=== PATIENT | female | born 1955 | race Caucasian/White ===

== ENCOUNTER 2021-09-19 22:02 | Emergency (ER) | payer OTHER ==
--- OUTSIDE RECORDS SUMMARY | 2021-09-19 22:06 | XMS REPORT | Continuity of Care Document ---
:1955 Author Organization [facility] t Address [address] [place] [address] Care Team Providers Name Role Phone MAKHOUL Attending Clinician Unavailable COLMENTER Attending Clinician Unavailable SARI Attending Clinician Unavailable CHICO JOYCE Attending Clinician Unavailable WILLIAN Attending Clinician Unavailable ISIAH Attending Clinician Unavailable MD CHICO JOYCE Attending Clinician Unavailable EDWIN Attending Clinician Unavailable CHIARAIMSAULO Attending Clinician Unavailable CAREN Attending Clinician Unavailable Hanna Attending Clinician Unavailable VASCULAR Attending Clinician Unavailable ALY Attending Clinician Unavailable COLMENTER Admitting Clinician Unavailable ISIAH Admitting Clinician Unavailable MD CHICO JOYCE Admitting Clinician Unavailable SAGRARIO Admitting Clinician Unavailable Physician, Primary or Family Admitting Clinician Unavailabl e Payers Payer Name Policy Type Policy Number Effective Date Expiration Date S ource Problems Condition Condition Condition Status Onset Resolution Last Treating Co mments Source Name Details Category Date Date Treatment Clinician Date ABDOMINAL Condition Active 2014-01-11 Memoria PAIN, LEFT 11-02 13:35:56 l LOWER 00:00: [place] QUADRANT ABDOMINAL 00 PAIN, LEFT LOWER QUADRANT Active 11/02/2013 Condition 01/11/ 4 [facility] BLEEDING, Condition Active 2014-01-11 Memoria RECTAL/JORGE 11-02 13:35:56 l L 00:00: [place] BLEEDING, 00 RECTAL/JENAE Active 11/02/2013 Condition 4 [facility] CONSTIPATI Condition Active 2014-01-11 Memoria ON, OTHER 11-02 13:35:56 l 00:00: [place] CONSTIPATI 00 ON, OTHER Active 11/02/2013 Condition 4 [facility] COLOVAGINA Condition Active 2014-01-11 Memoria L/RECTOVAG 11-02 13:35:56 l INAL 00:00: [place] FISTULA COLOVAGINA 00 L/RECTOVAG INAL FISTULA Active 11/02/2013 Condition 4 [facility] DIVERTICUL Condition Active 2014-01-11 Memoria ITIS 11-02 13:35:56 l 00:00: [place] DIVERTICUL 00 ITIS Active 11/02/2013 Condition 4 [facility] Group ATHEROSCLE Condition Active 2014-01-11 Memoria ROSIS OF 10-31 13:35:56 l OTHER 00:00: [place] SPECIFIED ATHEROSCLE 00 ARTERIES ROSIS OF OTHER SPECIFIED ARTERIES Active 10/31/2013 Condition 4 [facility] DIABETES Condition Active 2014-01-11 M emoria MELLITUS 10-31 13:35:56 l WITH DIABETES 00:00: Shmuel melgoza UNSPECIFIE MELLITUS 00 D WITH COMPLICATI UNSPECIFIE ON, TYPE D II OR COMPLICATI UNSPECIFIE ON, TYPE D TYPE, II OR NOT STATED UNSPECIFIE D TYPE, UNCONTROLL NOT STATED ED UNCONTROLL ED Active 4 Condition 01/11/2014 [facility] Group History of History of Problem Resolve NPI:152 arthritis arthritis d 8509 205 History of History of Problem Resolve NPI:152 Arthritis Arthritis d 8509 205 History of History of Problem Resolve NPI:152 hypertensi hypertensi d 85 02497 on on History of History of Problem Resolve NPI:152 Postoperat Postoperat d 85 79739 gurpreet gurpreet examinatio examinatio n n History of History of Problem Resolve NPI:152 stroke stroke d [id number] History of History of Problem Resolve NPI:152 transient transient d 8509 205 cerebral cerebral ischemia ischemia Amaurosis Amaurosis Problem Active NPI :152 fugax fugax [id number] Hyperchole Hyperchole Problem Active N PI:152 sterolemia sterolemia 85 00466 Left Left Problem Active NPI:152 shoulder shoulder 118079 5 pain pain Chronic Chronic Problem Active NPI:152 neck pain neck pain 8509 205 Arthrosis Arthrosis Problem Active NPI :152 of left of left 9943876 shoulder shoulder Degenerati Degenerati Problem Active N PI:152 ve ve 2879380 cervical cervical spinal spinal stenosis stenosis Carotid Carotid Problem Active NPI:152 artery artery 5113022 stenosis stenosis Diabetes Diabetes Problem Active NPI:1 52 mellitus mellitus 215000 5 Essential Essential Problem Active NPI :152 (primary) (primary) 8509 205 hypertensi hypertensi on on Essential Essential Problem Active NPI :152 hypertrigl hypertrigl 85 78606 yceridemia yceridemia Peripheral Peripheral Problem Active N PI:152 vascular vascular 544482 5 disease disease Tendinosis Tendinosis Problem Active N PI:907 6707223 Major Problem Active 2020-11-14 Memor ia depressive 02:46:10 l disorder, Major Shmuel n Recurrent depressive episode, disorder, Moderate Recurrent episode, Moderate Active Problem 11/14/2020 [facility] Unspecifie Problem Active 2021-02-04 M emoria d anxiety 02:46:17 l disorder [place] Unspecifie d anxiety disorder Active Problem 02/04/2021 [facility] Insomnia Problem Active 2021-02-04 Mem oria due to 02:46:17 l other Insomnia Shmuel n mental due to disorder other mental disorder Active Problem 02/04/2021 [facility] Major Problem Active 2021-02-04 Memor ia depressive 02:46:17 l disorder, Major Shmuel n Recurrent depressive episode, disorder, Mild Recurrent episode, Mild Active Problem 02/04/2021 [facility] Allergies, Adverse Reactions, Alerts Allergy Allergy Status Severity Reaction(s) Onset Inactive Treating Comm ents Source Name Type Date Date Clinician Sectral Sectral Active Info Not Memori a Available 9-20 l 00:00: Sectral Sectral Active Info Not Memori a Available 8-23 l 00:00: simvasta DA Active U 2018-0 [facility] tin 6-27 [place] 00:00: e 00 [facility] simvasta DA Active U UKNO 2018-0 [facility] tin 6[facility] [place] [facility] IODINE IODINE Active Memoria 6-17 l 00:00: [place] 00 Beta-Blo DA Active SV 2009-05 [facility] ckers 2- [facility] (Beta-Ad 00:00: e renergic 00 [facility] Bl[facility] Beta-Blo DA Active SV DEPRESSION 2009-05 [facility] ckers 2- [facility] (Beta-Ad 00:00: e renergic 00 Medical [facility] simvasta DA Active U 2009-05 [facility] tin 2 Clear 00:00: [place] [facility] Iodinate DA Active SV 2009-05 [facility] d 06-17 [facility] Contrast 00:00: e - Oral 00 [facility] Dye Iodinate DA Active SV HIVES 2009-05 [facility] d 06-17 [facility] Contrast 00:00: e - Oral 00 [facility] Dye Iodinate drug Active NPI:152 d allergy [id number] Contrast Media Family History Family Member Diagnosis Comments Start Date Stop Date Source Unknown Family history of Heart Family History NPI:[id number] Family Member Disease 205 Unknown FHx: diabetes mellitus Family History NPI:[id number] Family Member 205 Father Family history of asthma NPI:[id number] 205 Father Family history of NPI:152 8509 essential hypertension 20 5 Father Family history of NPI:152 8509 hypercholesterolemia 205 Social History Smoking Status Start Date Stop Date Source Current every day smoker NPI:289 [id number] Medications Ordered Filled Start Stop Current Ordering Indication Dosage Frequency Signature Comments Components Source Medication Medication Date Date Medication? Clinician (SIG) Name Name Hydrochloro Yes RICARDO 2 tablet M emoria thiazide 02-04 KEYES l 02:46: [place] 17 Fenofibrate Yes RICARDO 1 tablet M emoria 02-04 KEYES l 02:46: [place] 17 Omeprazole Yes RICARDO 1 capsule M emoria - KEYES l 02:46: [place] 17 Januvia Yes RICARDO TAKE 1 Memoria - KEYES TABLET BY l 02:46: MOUTH [place] 17 EVERY DAY. STOP METFORMIN Ondansetron Yes RICARDO 1 tab Ovidio ayala 02-04 KEYES l 02:46: [place] 17 Metformin Yes RICARDO 1 tablet Mem oria HCl 9-21 KEYES l 02:46: [place] Benavides Prozac Yes RICARDO 2 capsules Ovidio ayala 9-21 KEYES l 02:46: [place] Aspirin 0 Yes RICARDO 1 tablet Memor ia 9-21 KEYES l 02:46: [place] Melatonin 0 Yes RICARDO 2 tablets Me moria 9-21 KEYES at bedtime l 02:46: as needed [place] Fluoxetine Yes RICARDO 1 capsule M emoria HCl 9-21 KEYES l 02:46: [place] Fluoxetine 0 Yes RICARDO 1 capsule M emoria HCl 9-21 KEYES l 02:46: [place] Rosuvastati Yes RICARDO 1 tablet M emoria n Calcium 9-21 KEYES l 02:46: [place] Fenofibrate Yes RICARDO 1 tablet M emoria 9-21 KEYES l 02:46: [place] Benavides Celecoxib Yes RICARDO 1 capsule Me moria 9-21 KEYES l 02:46: [place] Hydrochloro 0 Yes RICARDO 2 tablet M emoria thiazide 9-21 KEYES l 02:46: [place] Metformin Yes RICARDO 1 tablet Mem oria HCl 9-21 KEYES l 02:46: [place] Omeprazole 0 Yes RICARDO 1 capsule M emoria 9-21 KEYES l 02:46: [place] Aspirin 0 Yes RICARDO 1 tablet Memor ia 9-21 KEYES l 02:46: [place] Benavides Januvia 0 Yes RICARDO TAKE 1 Memoria 9-21 KEYES TABLET BY l 02:46: MOUTH [place] Benavides EVERY DAY. STOP METFORMIN Ondansetron 0 Yes RICARDO 1 tab Ovidio ayala 9-21 KEYES l 02:46: [place] Benavides Prozac Yes RICARDO 2 capsules Ovidio ayala 9-21 KEYES l 02:46: [place] Benavides BuSpar 0 Yes RICARDO 1 tablet Memori a 9-21 KEYES l 02:46: [place] Benavides Melatonin 0 Yes RICARDO 2 tablets Me moria 9-21 KEYES at bedtime l 02:46: as needed [place] Fluoxetine Yes RICARDO 1 capsule M emoria HCl 9-21 KEYES l 02:46: [place] Fluoxetine 0 Yes RICARDO 1 capsule M emoria HCl 9-21 KEYES l 02:46: [place] BuSpar Yes RICARDO 1 tablet Memori a 9-21 KEYES l 02:46: [place] Rosuvastati Yes RICARDO 1 tablet M emoria n Calcium 9-21 KEYES l 02:46: [place] Celecoxib 0 Yes RICARDO 1 capsule Me moria 9-21 KEYES l 02:46: [place] Celecoxib Yes RICARDO 1 capsule Me moria 8-24 KEYES l 02:46: [place] Omeprazole Yes RICARDO 1 capsule M emoria 8-24 KEYES l 02:46: [place] Rosuvastati Yes RICARDO 1 tablet M emoria n Calcium 8-24 KEYES l 02:46: [place] Fenofibrate Yes RICARDO 1 tablet M emoria 8-24 KEYES l 02:46: [place] Hydrochloro 0 Yes RICARDO 2 tablet M emoria thiazide 8-24 KEYES l 02:46: [place] Metformin Yes RICARDO 1 tablet Mem oria HCl 8-24 KEYES l 02:46: [place] Aspirin 0 Yes RICARDO 1 tablet Memor ia 8-24 KEYES l 02:46: [place] Ondansetron 0 Yes RICARDO 1 tab Ovidio ayala 8-24 KEYES l 02:46: [place] BuSpar Yes RICARDO 1 tablet Memori a 8-24 KEYES l 02:46: [place] Januvia 0 Yes RICARDO TAKE 1 Memoria 8-24 KEYES TABLET BY l 02:46: MOUTH [place] EVERY DAY. STOP METFORMIN Prozac 0 Yes RICARDO 2 capsules Ovidio ayala 8-24 KEYES l 02:46: [place] Melatonin 0 Yes RICARDO 2 tablets Me moria 8-24 KEYES at bedtime l 02:46: as needed [place] Fluoxetine Yes RICARDO 1 capsule M emoria HCl 8-24 KEYES l 02:46: [place] Fluoxetine 0 Yes RICRADO 1 capsule M emoria HCl 8-24 KEYES l 02:46: [place] Celecoxib 0 Yes RICARDO 1 capsule Me moria 8-24 KEYES l 02:46: [place] Omeprazole 0 Yes RICARDO 1 capsule M emoria 8-24 KEYES l 02:46: [place] Rosuvastati 0 Yes RICARDO 1 tablet M emoria n Calcium 8-24 KEYES l 02:46: [place] Fenofibrate Yes RICARDO 1 tablet M emoria 8-24 KEYES l 02:46: [place] Hydrochloro 0 Yes RICARDO 2 tablet M emoria thiazide 8-24 KEYES l 02:46: [place] Metformin 0 Yes RICARDO 1 tablet Mem oria HCl 8-24 KEYES l 02:46: [place] Aspirin 0 Yes RICARDO 1 tablet Memor ia 8-24 KEYES l 02:46: [place] Ondansetron 0 Yes RICARDO 1 tab Ovidio ayala 8-24 KEYES l 02:46: [place] BuSpar 0 Yes RICARDO 1 tablet Memori a 8-24 KEYES l 02:46: [place] Januvia 0 Yes RICARDO TAKE 1 Memoria 8-24 KEYES TABLET BY l 02:46: MOUTH [place] EVERY DAY. STOP METFORMIN Prozac 0 Yes RICARDO 2 capsules Ovidio ayala 8-24 KEYES l 02:46: [place] Melatonin 0 Yes RICARDO 2 tablets Me moria 8-24 KEYES at bedtime l 02:46: as needed [place] Fluoxetine 0 Yes RICARDO 1 capsule M emoria HCl 8-24 KEYES l 02:46: [place] Fluoxetine 0 Yes RICARDO 1 capsule M emoria HCl 8-24 KEYES l 02:46: [place] 11 Fluoxetine 2021-0 Yes RICARDO 1 capsule M emoria HCl 7-27 KEYES l 00:00: Fluoxetine 2020-0 Yes RICARDO 1 capsule M emoria HCl 7-27 KEYES l 00:00: Fluoxetine 2020-0 Yes RICARDO 1 capsule M emoria HCl 7-27 KEYES l 00:00: Fluoxetine 0 Yes RICARDO 1 capsule M emoria HCl 7-27 KEYES l 00:00: Fluoxetine 0 Yes RICARDO 1 capsule M emoria HCl 7-27 KEYES l 00:00: Fluoxetine 0 Yes RICARDO 1 capsule M emoria HCl 7-27 KEYES l 00:00: Fluoxetine 0 Yes RICARDO 1 capsule M emoria HCl 7-27 KEYES l 00:00: Fluoxetine 0 Yes RICARDO 1 capsule M emoria HCl 7-27 KEYES l 00:00: Wellbutrin 0 Yes Nilda 1 tablet M emoria SR 4-16 Walker in the l 02:49: morning Wellbutrin 0 Yes Nilda 1 tablet M emoria SR 4-16 Walker in the l 02:49: morning Wellbutrin 0 Yes Nilda 1 tablet M emoria SR 4-16 Walker in the l 02:49: morning Wellbutrin 0 Yes Nilda 1 tablet M emoria SR 4-16 Walker in the l 02:49: morning Prozac 0 Yes Sandoval 4 capsule Memori a 3-26 Lidasan l 02:47: Prozac 0 Yes Sandoval 4 capsule Memori a 3-26 Lidasan l 02:47: Prozac 0 Yes Sandoval 4 capsule Memori a 3-26 Lidasan l 02:47: Prozac 0 Yes Sandoval 4 capsule Memori a 3-26 Lidasan l 02:47: Omeprazole 2019-0 Yes Veronique 1 capsule Memoria 9-07 Giles l 02:45: Remeron 2020-0 Yes Veronique 1 tablet Mem oria 9-07 Giles at bedtime l 02:45: Clopidogrel 2020-0 Yes Veronique 1 tablet Memoria Bisulfate 9-07 Giles l 02:45: Omeprazole 2020-0 Yes Veronique 1 capsule Memoria 9-07 Giles l 02:45: Remeron 2020-0 Yes Veronique 1 tablet Mem oria 9-07 Giles at bedtime l 02:45: Clopidogrel 2020-0 Yes Veronique 1 tablet Memoria Bisulfate 9-07 Giles l 02:45: Omeprazole 2020-0 Yes Veronique 1 capsule Memoria 9-07 Giles l 02:45: Remeron 2020-0 Yes Veronique 1 tablet Mem oria 9-07 Giles at bedtime l 02:45: Clopidogrel 2020-0 Yes Veronique 1 tablet Memoria Bisulfate 9-07 Giles l 02:45: Omeprazole 2020-0 Yes Veronique 1 capsule Memoria 9-07 Giles l 02:45: Remeron 2020-0 Yes Veronique 1 tablet Mem oria 9-07 Giles at bedtime l 02:45: Clopidogrel 2020-0 Yes Veronique 1 tablet Memoria Bisulfate 9-07 Giles l 02:45: traMADol traMADol 2015-05 Yes CHRISTOPHE-JOSH TAKE 1 TO NPI:152 HCl - 50 MG HCl - 50 MG 2-05 YEH D.O. 2 TABLETS [id number] Oral Tablet Oral Tablet 00:00: EVERY 6 00 HOURS NEEDED FOR PAIN. Cyclobenzap Cyclobenzap 2015-05 Yes CHRISTOPHE-JOSH TAKE 1 NPI:152 rine HCl - rine HCl - 2-05 YEH D.O. TABLET 3 [id number] 10 MG Oral 10 MG Oral 00:00: TIMES Tablet Tablet 00 DAILY NEEDED. FLAGYL TAB No 1 tablet Mem oria 500MG 8-08 twice l 00:00: daily X 7 [place] 00 days FLAGYL TAB No 1 tablet Mem oria 500MG 8-08 twice l 00:00: daily X 7 [place] 00 days ASPIRIN EC 2014-0 Yes Memoria LOW DOSE 81 6-17 l MG TBEC 00:00: ESCITALOPRA 2014-0 Yes Memori a M OXALATE 6-17 l 20 MG TABS 00:00: METFORMIN 2014-0 Yes Memoria HCL 500 MG 6-17 l TABS 00:00: FENOFIBRATE 2014-0 Yes Memori a 145 MG TABS 6-17 l 00:00: CELEBREX 2014-0 Yes Memoria 200 MG CAPS 6-17 l 00:00: ESCITALOPRA 2014-0 Yes Memori a M OXALATE 6-17 l 20 MG TABS 00:00: METFORMIN 2014-0 Yes Memoria HCL 500 MG 6-17 l TABS 00:00: FENOFIBRATE 2014-0 Yes Memori a 145 MG TABS 6-17 l 00:00: CELEBREX 2014-0 Yes Memoria 200 MG CAPS 6-17 l 00:00: CELEBREX 2014-0 Yes Memoria 200 MG CAPS 6-17 l 00:00: ASPIRIN EC 2014-0 Yes Memoria LOW DOSE 81 6-17 l MG TBEC 00:00: ESCITALOPRA 2014-0 Yes Memori a M OXALATE 6-17 l 20 MG TABS 00:00: METFORMIN 2014-0 Yes Memoria HCL 500 MG 6-17 l TABS 00:00: FENOFIBRATE 2014-0 Yes Memori a 145 MG TABS 6-17 l 00:00: CELEBREX 2014-0 Yes Memoria 200 MG CAPS 6-17 l 00:00: ESCITALOPRA 2014-0 Yes Memori a M OXALATE 6-17 l 20 MG TABS 00:00: METFORMIN 2014-0 Yes Memoria HCL 500 MG 6-17 l TABS 00:00: FENOFIBRATE 2014-0 Yes Memori a 145 MG TABS 6-17 l 00:00: CELEBREX 2014-0 Yes Memoria 200 MG CAPS 6-17 l 00:00: CELEBREX 2014-0 Yes Memoria 200 MG CAPS 6-17 l 00:00: CeleBREX CeleBREX Yes QD TAKE 1 NPI:1 52 200 MG Oral 200 MG Oral CAPSULE [id number] Capsule Capsule DAILY NEEDED. Lexapro 20 Lexapro 20 Yes 1 QD TAKE 1 N PI:152 MG Oral MG Oral TABLET [id number] Tablet Tablet DAILY. Tricor 145 Tricor 145 Yes 1 QD TAKE 1 N PI:152 MG Oral MG Oral TABLET [id number] Tablet Tablet DAILY. amLODIPine- amLODIPine- Yes QD TAKE 1 NPI:152 Valsartan-H Valsartan-H TABLET [id number] CTZ CTZ DAILY DIRECTED. MG Oral MG Oral Tablet Tablet Potassium Potassium Yes 1 QD TAKE 1 NPI :152 Chloride Chloride TABLET [id number] 05 Barbaar ER 20 Barbara ER 20 DAILY. MEQ Oral MEQ Oral Tablet Tablet Extended Extended Release Release metFORMIN metFORMIN Yes Q0.5D TAKE 1 EDGE STAINER I:152 HCl - 1000 HCl - 1000 TABLET 8 [id number] MG Oral MG Oral TWICE Tablet Tablet DAILY WITH MEALS. Crestor 40 Crestor 40 Yes 1 QD TAKE 1 N PI:152 MG Oral MG Oral TABLET [id number] Tablet Tablet DAILY. Lexapro Lexapro Yes NPI:152 TABS TABS [id number] hydroCHLORO hydroCHLORO Yes N PI:152 thiazide thiazide [id number] TABS TABS CeleBREX CeleBREX Yes NPI:152 CAPS CAPS [id number] Vital Signs Vital Name Observation Time Observation Value Comments Source Weight 2020-07-22 21:45:00 [facility] Weight 2020-06-24 19:30:00 [facility] Weight 2020-05-27 21:45:00 [facility] Weight 2020-04-24 21:45:00 [facility] Weight 2020-03-28 22:15:00 [facility] Weight 2020-02-29 20:15:00 [facility] Weight 2020-02-15 19:30:00 [facility] Weight 2019-05-15 16:15:00 [facility] Height 2019-05-15 16:15:00 [facility] Heart Rate 2019-05-15 16:15:00 [facility] Diastolic (mm Hg) 2019-05-15 16:15:00 [facility] francheskaal [place] Systolic (mm Hg) 2019-05-15 16:15:00 Ovidio rial [place] Weight 2014-01-11 18:35:56 [facility] Temperature Oral (F) 2014-01-11 18:35:56 98.7 F [facility] [place] Heart Rate 2014-01-11 18:35:56 [facility] [place] Systolic (mm Hg) 2014-01-11 18:35:56 Ovidio rial [place] Diastolic (mm Hg) 2014-01-11 18:35:56 Mem orial [place] Weight 2013-12-29 20:27:02 [facility] [place] Temperature Oral (F) 2013-12-29 20:27:02 99.0 F [facility] [place] Heart Rate 2013-12-29 20:27:02 [facility] [place] Systolic (mm Hg) 2013-12-29 20:27:02 Ovidio rial [place] Diastolic (mm Hg) 2013-12-29 20:27:02 Mem orial [place] Weight 2013-12-22 18:42:34 [facility] [place] Temperature Oral (F) 2013-12-22 18:42:34 98.6 F [facility] [place] Heart Rate 2013-12-22 18:42:34 [facility] [place] Systolic (mm Hg) 2013-12-22 18:42:34 Ovidio rial [place] Diastolic (mm Hg) 2013-12-22 18:42:34 Mem orial [place] Weight 2013-12-14 14:20:08 [facility] [place] Temperature Oral (F) 2013-12-14 14:20:08 98.6 F [facility] [place] Heart Rate 2013-12-14 14:20:08 [facility] [place] Systolic (mm Hg) 2013-12-14 14:20:08 Ovidio rial [place] Diastolic (mm Hg) 2013-12-14 14:20:08 Mem orial [place] Weight 2013-11-28 18:19:41 [facility] [place] Temperature Oral (F) 2013-11-28 18:19:41 98.5 F [facility] [place] Heart Rate 2013-11-28 18:19:41 [facility] [place] Systolic (mm Hg) 2013-11-28 18:19:41 Ovidio rial [place] Diastolic (mm Hg) 2013-11-28 18:19:41 Mem orial [place] Height 2013-10-31 19:53:28 [facility] [place] Weight 2013-10-31 19:53:28 [facility] [place] Temperature Oral (F) 2013-10-31 19:53:28 98.7 F [facility] [place] Heart Rate 2013-10-31 19:53:28 [facility] [place] Systolic (mm Hg) 2013-10-31 19:53:28 Ovidio desmond [place] Diastolic (mm Hg) 2013-10-31 19:53:28 [facility] orial [place] Procedures Procedure Date / Time Performing Clinician Source Performed CVRAD - Bilateral Carotid 2019-04-18 00:00:00 EDGE STAINER I:[id number] Duplex - 15282 [facility] - Bilateral Carotid 2018-04-19 00:00:00 EDGE STAINER I:[id number] Duplex - 60316 [facility] - Bilateral Carotid 2017-03-08 00:00:00 EDGE STAINER I:[id number] Duplex - 90378 [facility]RAD - KATH - 15761 2017-03-08 00:00:00 NPI:1528 [id number] History of Back Surgery NPI:1528 [id number] History of Carotid NPI:[id number] 5 Thromboendarterectomy History of Hip Replacement NPI:1 [id number] History of Hysterectomy NPI:1528 [id number] Encounters Start End Encounter Admission Attending Care Care Encounter Source Date/Time Date/Time Type Type Clinicians Facility Department ID 2021-02-10 Outpatient [id number] Memoria 11:35:18 [id number] [place] [id number] 2021-02-07 Outpatient [id number] Memoria 13:24:15 [id number] [place] [id number] 2021-09-18 2021-09-18 Outpatient [facility] [id number] [place] 00:00:00 00:00:00 ALECIA [address] 2021-09-18 2021-09-18 Outpatient [facility] [id number] [place] 00:00:00 00:00:00 ALECIA [address] 2021-09-18 2021-09-18 Outpatient MAKHOUL, [facility] [id number] [place] 00:00:00 00:00:00 ALECIA [address] 2021-08-26 2021-08-26 Outpatient COLMENTER, [facility] [id number] [place] 00:00:00 00:00:00 DIEGO [address] 2021-08-12 2021-08-12 Outpatient ALI, HIBA [facility] [id number] [place] 00:00:00 00:00:[address] 2021-08-12 2021-08-12 Outpatient MAKHOUL, [facility] [id number] [place] 00:00:00 00:00:00 ALECIA [address] 2021-08-11 2021-08-11 Outpatient COLMENTER, [facility] [id number] [place] 00:00:00 00:00:00 DIEGO [address] 2021-08-07 2021-08-07 Outpatient PATRICKL, [facility] [id number] [place] 00:00:00 00:00:00 ALECIA [address] 2021-08-07 2021-08-07 Outpatient CHERELLEHOUL, [facility] [id number] [place] 00:00:00 00:00:00 ALECIA [address] 2021-07-11 2021-07-11 Outpatient COLMENTER, [facility] [id number] [place] 00:00:00 00:00:00 DIEGO [address] 2021-06-30 2021-06-30 Outpatient [facility] [id number] [place] 00:00:00 00:00:[address] 2021-04-29 2021-04-29 Outpatient COLMENTER, [facility] [id number] [place] 00:00:00 00:00:00 DIEGO [address] 2021-04-01 2021-04-01 Outpatient PATRICKL, [facility] [id number] [place] 00:00:00 00:00:00 ALECIA [address] 2021-04-01 2021-04-01 Outpatient PATRICKL, [facility] [id number] [place] 00:00:00 00:00:00 ALECIA [address] 2021-03-26 2021-03-26 Outpatient COLMENTER, [facility] [id number] [place] 00:00:00 00:00:00 DIEGO [address] 2021-02-10 2021-02-10 Outpatient ALI, HIBA [facility] [id number] [place] 00:00:00 00:00:[address] 2021-02-10 2021-02-10 Outpatient ALI, HIBA [facility] [id number] [place] 00:00:00 00:00:[address] 2021-02-07 2021-02-07 Outpatient ALI, HIBA [facility] [id number] [place] 00:00:00 00:00:[address] 2021-01-22 2021-01-22 Outpatient ALI, [facility] [id number] [place] 00:00:00 00:00:[address] 2021-01-14 2021-01-14 Outpatient ALI, HIBA [facility] [id number] [place] 00:00:00 00:00:[address] 2020-12-18 2020-12-18 Outpatient CHERELLEHOUL, [facility] [id number] [place] 00:00:00 00:00:00 ALECIA [address] 2020-08-27 2020-08-27 Outpatient CHERELLEHOUL, [facility] [id number] [place] 00:00:00 00:00:00 ALECIA [address] 2020-08-05 2020-08-05 Outpatient JOYCE, [facility] [id number] 11:41:00 13:29:[address] [facility] 2020-06-17 2020-06-17 Outpatient KRONFOL, [facility] [id number] [place] 00:00:00 00:00:00 ZIAD [address] 2020-06-13 2020-06-13 Outpatient JOYCE, [facility] [id number] [place] 00:00:00 00:00:00 TOBI [address] 2020-06-11 2020-06-11 Outpatient JOYCE, [facility] [id number] [place] 00:00:00 00:00:00 TOBI [address] 2020-05-08 2020-05-08 Outpatient JOYCE, [facility] [id number] [place] 00:00:00 00:00:00 SVETANG [address] 2019-12-12 2019-12-12 Outpatient EDWIN, [facility] [id number] [place] 00:00:00 00:00:00 MADY [address] 2019-11-21 2019-11-21 Outpatient DESIREE, [facility] [id number] [place] 00:00:00 00:00:00 ALECIA 848 [facility] 2019-07-13 2019-07-13 Outpatient EDWIN, [facility] [id number] [place] 00:00:00 00:00:00 MADY [facility] 2019-06-04 2019-06-08 Inpatient TEQWBOAZ, [facility] [id number] [place] 00:00:00 00:00:00 PATRICK [address] [facility] 2019-05-30 2019-05-30 JIMMY [facility] [id number] NPI:152 10:00:00 10:00:00 t; ALLYSON FABIAN, Surgery - [phone] Edison VALADEZ [facility] M.Elen 2019-05-12 2019-05-12 Outpatient DANNI Ferreira, [facility] KYA [id number] [facility] 12:00:00 12:00:00 Dominic [id number] [facility] 2019-04-18 2019-04-18 Franco FLOWERS [facility] Thoracic 5930 1529 NPI:152 10:00:00 10:00:00 t; SE Surgery - [id number] VASCULAR, [facility] 2018-05-03 2018-05-03 JIMMY [facility] 478 61921 NPI:152 10:15:00 10:15:00 t; ALLYSON FABIAN cic and 850 9205 Edison VALADEZ Vascular M.D. Surgery at [facility] 2018-04-19 2018-04-19 JIMMY [facility] 4 [id number] NPI:152 10:30:00 10:30:00 t; cic and [id number] 5 VASCULAR, Vascular SE Surgery at [facility] 2017-03-23 2017-03-23 JIMMY [facility] 350 64084 NPI:152 11:00:00 11:00:00 t; ALLYSON FABIAN cic and 850 9205 Edison VALADEZ Vascular Edison Surgery at [place] 2017-03-08 2017-03-08 Appointmen VASCULAR, UTP UTP 57335 376 NPI:152 10:30:00 10:30:00 t; SE [id number] 5 VASCULAR, SE 2017-03-08 2017-03-08 Appointmen VASCULAR, UTP UTP 74928 344 NPI:152 10:00:00 10:00:00 t; SE [id number] 5 VASCULAR, SE 2017-02-09 2017-02-09 Appointmen CAREN, UTP UTP [id number] 0 NPI:152 09:45:00 09:45:00 t; ALLYSON FABIAN, 850 9205 Edison VALADEZ M.D. 2016-04-20 2016-04-20 Appointmen ALY [facility] UTP [id number] NPI:152 15:00:00 15:00:00 t; SHERIDAN LU, 850 9205 Peyton SWARTZ D.O. 2014-01-11 2014-01-11 [facility] [id number] [facility] 00:00:00 00:00:00 Visit nargis Hull [id number] [facility] Col[facility] 2013-12-29 2013-12-29 [facility] [id number] [facility]oria 00:00:00 00:00:00 Visit nargis Hull 197740 [facility] Col[facility] 2013-12-22 2013-12-22 [facility] [id number] 570 [facility] 00:00:00 00:00:00 Visit nargis Hull 108895 [facility] Colorectal [facility] 2013-12-14 2013-12-14 [facility] [id number] [facility]oria 00:00:00 00:00:00 Visit nargis Hull 311434 [facility] Col[facility] 2013-11-28 2013-11-28 [facility] [id number] 594 [facility] 00:00:00 00:00:00 Visit nargis Hull [id number] [facility] Col[facility] 2013-11-02 2013-11-02 Lab Report [facility] [id number] Memoria 00:00:00 00:00:00 nargis Hull [id number] [facility] [place] 2013-10-31 2013-10-31 [facility] [id number] 025 [facility] 00:00:00 00:00:00 Visit nargis Hull 775275 [facility] Colorectal [facility] Results Test Description Test Time Test Comments Results Result Sourc e Comments SCR MAMM BILATERAL 2021-05-06 BRITTANY CAD DIGITAL 16:03:02 Name: Aretha : 1955 Sex: F - SCR MAMM BILATERAL BRITTANY CAD DIGITALBILATERAL DIGITAL SCREENING MAMMOGRAM 3D/2D WITH CAD: 05/02/2021LINICAL: Asymptomatic. Digital breast tomosynthesis was performed in addition to routine CC and MLO views. Current mammographic images were evaluated by [employer] CAD (computer-aided detection) software. Comparison is made to exam dated 05/12/2019 mammogram - [facility]. The tissue of both breasts is predominantly fatty. No suspicious mass, architectural distortion, malignant type calcification, or lymph node abnormality detected. Breast architecture is stable compared to prior exams.IMPRESSION: NEGATIVEThere is no mammographic evidence of malignancy. Resume annual screening mammography in one year. Hernan Orozco M.D. ss/penrad:05/06/2021 16:03:02 [employer]: Corazon THOMPSON, [facility]-FWletter sent: BIRADS 1-2 Normal Mammogram BI-RADS: 1 Negative SARS-CoV-2 (COVID-19) RNA [Presence] in Respiratory sp ecimen by 2020-06-12 02:03:28 HARVINDER with probe detection Test Item Value Reference Range Interpretation Comme nts SARS-CoV-2 (COVID-19) RNA [Presence] in Respiratory Not detected No t-Detected specimen by HARVINDER with probe detection (test code = 58961-8) SURGICAL [id number] 07:38:00 RUN DATE: 11/25/18 [facility] *LIVE* PAGE 1 RUN TIME: 737 Specimen Inquiry RUN USER: INTERFACE PATIENT: ARETHA MIRAMONTES [facility] U #: [id number] AGE/SX: 63/F ROOM: [facility] RE11/11/18REG DR: Criss Spring MD : 51 BED: 1 DIS: 11/15/18 STATUS: DIS IN TLOC: SPEC #: [id number] RECD: 11/11/18 STATUS: SUKHDEEP RIVERA #: [id number] PATRICIA: 11/11/[address]: Criss Spring MD ENTERED: 11/24/18 SP TYPE: SURG SPEC OTHR DR: Self Referred Tobi Joyce MD, Altaf MD Makhoul, Claudia MD Voloyiannis,Theodoros MDORDERED: GM LEVEL 4 CODES: [id number] - STOMACH, NOS COPIES TO: Self Referred Tobi Joyce MD [address] [place] [address] [place] [address] [place] [address] [email or web address] [address] [place] [id number] Criss Spring MD [address] [place] [address] Le Kramer MD [address] [place], [place] [id number] [email or web address] PROCEDURES: GM LEVEL 4 (Incomplete) TISSUES: 1. STOMACH, NOS - Stomach, bx. CONTINUED ON NEXT PAGE RUNDATE: 11/25/18 [facility] *LIVE* PAGE 2 RUN TIME: 737 Specimen Inquiry RUN USER: INTERFACE SPEC #: [id number] PATIENT: FEARETHA SHELTON #[id number] (Continued) FINAL DIAGNOSIS Stomach, antrum, biopsy: Mild chronic gastritis, nonactive; no Helicobacter pylori organisms identified. GROSS AND MICROSCOPIC GROSS EXAMINATION: Received is/are the specimen/s designated with the appropriate dimensions and block designation: 1. Stomach, bx.: 2 segments of pink-jacobs tissue, measuring up to 0.5 cm. in greatest dimension each. MICROSCOPIC EXAMINATION: The gastric mucosa reveals mild foveolar hyperplasia with increased fibrosis and chronic inflammation in the lamina propria. No significant acute inflammation is identified. No Helicobacter pylori organisms are identified with the immunostain, and no intestinal metaplasia is identified with the alcian blue/PAS stain. (When special stains have been reviewed, the appropriate positive/negative controls have been reviewed and are appropriately positive/negative). POST-OP DIAGNOSIS Gastritis, hiatal hernia PRE-OP DIAGNOSIS Intractable vomiting Signed SIGNATURE ON FILE Sandra Kruger MD 11/25/18 0738 END OF REPORT - HEPA IMAG INCL GB W [id number] 10:20:00 FAX: Michel Barrios [phone] [place]: St: FAX: Amada Cordova [phone] FAX: Criss Spring MD [phone] Name: ARETHA MIRAMONTES [facility] Geni : 1955 Age/S: 63/F [address] [place] [address] Unit #: [id number] Loc: G.C144 [place] [address] Phys: Michel Barrios Acct: [id number] Dis Date: Status: ADM IN PHONE #: [phone] Exam Date: 11/14/2018 1002 FAX #: [phone] Reason: abd pain and N/V EXAMS: CPT CODE: [id number] HEPA IMAG INCL GB W PHA 82671 Nuclear medicine hepatobiliary scan HISTORY: Nausea and vomiting after eating. PROCEDURE: After the intravenous injection of 5 mCi of technetium 99m Choletec, anterior projection imaging was performed for 100 minutes. Then, 8 ounces of Ensure was ingested orally and additional imaging of the abdomen was performed for 30 minutes. FINDINGS: There is normal hepatic uptake of the radiotracer and exc retion into the biliary system. The gallbladder is visualized at 45 minutes. The small bowelis visualized at 100 minutes. After the ingestion of a fatty meal, the maximum gallbladder ejection fraction measures 58% at 30 minutes which is normal. IMPRESSION:1. Patent cystic duct and common duct. No evidence for acute cholecystitis. 2. Normal gallbladder ejection fraction. SL: [id number] at 1020 Reported and signed by: Orlando Lorenzo M.D. CC: Michel Barrios; Alecia Cordova MD; Criss Spring MD Technologist: Alis Rivera, RT(N) ELECTRIC BATH ATTENDANT; ... Trnscrd Date/Time/By: 11/14/2018 (1020) : By: [email or web address] Orig Print D/T: S: 11/14/2018 (1180) PAGE 1 Signed Report- XR CHEST 2 [id number] 10:11:00 FAX: Michel Barrios [phone] [place]: St: ADM FAX: Amada Cordova [phone] FAX: Criss Spring MD [phone] Name: ARETHA MIRAMONTES [facility] : 1955 Age/S: 63/F [address] [place] [address] Unit #: [id number] Loc: G.[address] [address] Phys: Michel Barrios Acct: [id number] Dis Date: Status: ADM IN PHONE #: [phone] Exam Date: 11/11/2018 0743 FAX #: [phone] Reason: PRE OP PROTOCOL EXAMS: CPT CODE: [id number] XR CHEST 2 V 01515 2 view chest x-ray performed November 11, 2018 0732 hours. COMPARISON: August 04, 2012. CLINICAL HISTORY: PRE OP PROTOCOL. Intractable vomiting DISCUSSION: 2 views/ films of the chest are submitted. Lungs are clear bilaterally. Surgical clips are seen in the left lower neck region. Cardiomediastinal silhouette isnormal. Osseous structures are within normal limits. IMPRESSION: Normal Chest X-ray. at 1011 Reported and signed by: Clara Cedeño M.D. CC: Michel Barrios; Alecia Cordova MD; Criss Spring MD Technologist: RT Cristopher(Nargis) Trnscrd Date/Time/By: 11/11/2018 (1011) : By: YoNMG Orig Print D/T: S: 11/11/2018 (2516) PAGE 1 Signed Report- US ABDOMEN [id number] 08:33:00 Name: ARETHA MIRAMONTES [facility] : 1955 Age/S: 63 / F [address] [place] [address] Unit #: [id number] Loc: [place] [id number] Phys: York,Michel PANDEY Acct: [id number] Dis Date: Status: ADM IN PHONE #: [phone] Exam Date: 11/11/2018808 FAX #: [phone] Reason: n/v/abdpain EXAMS: CPTCODE: [id number] US ABDOMEN LTD 84714 PROCEDURE: RIGHT UPPER QUADRANT ULTRASOUND INDICATION: Nausea, vomiting, upper abdominal pain COMPARISON: None TECHNIQUE: Sonographic evaluation of the right upper quadrant was performed with supplemental color and pulsed Doppler. FINDINGS: LIVER: There is increased echogenicity throughout the liver. GALLBLADDER: There are no gallstones, sludge, pericholecystic fluid or wall thickening. BILE DUCTS: The common duct measures 3 mm. PANCREAS: The visualized pancreas appears normal. RIGHT KIDNEY: The right kidney measures 10.3 cm in length. There are at least 2 renal cysts, largest measuring 1.0 cm. No hydronephrosis or renal stones are present. Renal cortex has normal echogenicity. Additional comments: None. IMPRESSION: 1. No cholelithiasis, cholecystitis, or ductal dilatation. 2. Fatty infiltration of liver. SL: [id number] at 0833 Reported and signed by: Orlando Lorenzo M.D. CC: Michel Barrios; Alecia Cordova MD; Criss Spring MD Technologist: Claudia lutz RDMS(Isabella)(SANTO) Trnscb Date/Time: 11/11/2018 (832) [email or web address] Orig Print D/T: S: 11/11/2018 (0836) Probe: PAGE 1 Signed ReportPROTHROMBIN [id number] 03:51:00 Test Item Value Reference Range Interpretation Comments PROTHROMBIN TIME 13.5 SECONDS 9.3-12.9 H PATIENT (test code = PTP) INTERNATIONAL NORMAL 1.2 0.8-1.2 N TARGET RATIO (test code = INR BY IN DICATION INR) Indication INR1. Prophyl axis of venous thrombos is 2.0 - 3. 0 (orthopedic autumn mian), Prophylaxis of venous thrombos is (other than hig h-risk surgery), Rajani tment of Deep Vein Thrombosis/Pulm onary Embolism, Preve ntion of systemic emb olism - Tissue heart va lves, Acute Myocardia l Infarction (to prevent systemic embo lism), Valvular heart disease, Atri al Fibrillation, Bileaflet mecha nical valve in aortic position.2. Mec hanical prosthetic valv es (high risk), 2.5 - 3.5 Presence of Lupus Anticoagu lant or Antiphospholi pid Antibodies, Pre vention of systemic e mbolism - Acute Myocard ial Infarction (t o prevent recurre nt infarct). THROMBOPLASTIN TIME [id number] 03:51:00 Test Item Value Reference Range Interpretation Comments THROMBOPLASTIN TIME 32.3 Seconds 25.0-39.5 N Ther apeutic PARTIAL (test code = Range: 50.4 - 88.3 PTT) Seconds Effective 08/30/2018 - NM GASTRIC [id number] 15:11:00 FAX: Alecia Cordova MD [phone] [place]: St: ADM FAX: Criss Spring MD [phone] Name: ARETHA MIRAMONTES [facility] : 1955 Age/S: 63/F [address] [place] [address] Unit #: [id number] Loc: GMargaretC144 [place] [address] Phys: Criss Spring MD Acct: [id number] Dis Date: Status: ADM IN PHONE #: [phone] Exam Date: 11/10/2018 1456 FAX #: [phone] Reason: nausea /vomiting, r/o gastroparesis EXAMS: CPT CODE: [id number] NM GASTRIC EMPTYING 79401 NUCLEAR MEDICINE GASTRIC EMPTYING STUDY. INDICATION: Intractable Nausea vomiting for 9 months. Gastroparesis. COMPARISON: None. TECHNIQUE: Patient was allowed to ingest oatmeal mixed with 1 mCi Tc 99m sulfur colloid. Immediate and serial images of the abdomen in the anterior projection were obtained for calculation of gastric emptying time. FINDINGS: Radiotracer is seen within the area of the stomach on the initial images demonstrating movement into the small bowel loops over serial images. Half gastric emptying time is 32 minutes. IMPRESSION: Normal gastric emptying study. SL: KWADWO at 1511 Reported and signed by: Chacorta Conde M.D. CC: Alecia Cordova MD; Criss Spring MD Technologist: SALVATORE Loyola (N) Trnscrd Date/Time/By: 11/10/2018 (1511) : By: [email or web address] Orig Print D/T: S: 11/10/2018 (1511) PAGE 1 Signed ReportCBC W/AUTO [id number] 09:36:00 Test Item Value Reference Range Interpretation Comments WHITE BLOOD CELL (test code = 5.89 x10 3/uL 4.5-11.0 N WBC) RED BLOOD CELL (test code = 3.63 x10 6/uL 3.54-5.02 N RBC) HEMOGLOBIN (test code = HGB) 11.0 g/dL 11.0-15.0 N HEMATOCRIT (test code = HCT) 34.0 % 33.0-45.0 N MEAN CELL VOLUME (test code = 93.7 fL 81.0-99.0 N MCV) MEAN CELL HGB (test code = MCH) 30.3 pg 27.0-33.0 N MEAN CELL HGB CONCETRATION 32.4 g/dL 33.0-37.0 L (test code = MCHC) RED CELL DISTRIBUTION WIDTH CV 12.3 % 11.5-14.5 N (test code = RDW) RED CELL DISTRIBUTION WIDTH SD 42.5 fL 37.0-54.0 N (test code = RDW-SD) PLATELET COUNT (test code = 350 x10 3/uL 150-400 N PLT) MEAN PLATELET VOLUME (test code 10.1 fL 7.0-9.0 H = MPV) NEUTROPHIL % (test code = NT%) 48.9 % 56.0-77.0 L IMMATURE GRANULOCYTE % (test 0.3 % 0.0-2.0 N code = IG%) LYMPHOCYTE % (test code = LY%) 30.9 % 14.0-32.0 N MONOCYTE % (test code = MO%) 8.5 % 4.8-9.0 N EOSINOPHIL % (test code = EO%) 10.9 % 0.3-3.7 H BASOPHIL % (test code = BA%) 0.5 % 0.0-2.0 N NUCLEATED RBC % (test code = 0.0 % 0-0 N NRBC%) NEUTROPHIL # (test code = NT#) 2.88 x10 3/uL 2.0-7.6 N IMMATURE GRANULOCYTE # (test 0.02 x10 3/uL 0.00-0.03 N code = IG#) LYMPHOCYTE # (test code = LY#) 1.82 x10 3/uL 1.0-3.8 N MONOCYTE # (test code = MO#) 0.50 x10 3/uL 0.1-0.8 N EOSINOPHIL # (test code = EO#) 0.64 x10 3/uL 0.0-0.2 H BASOPHIL # (test code = BA#) 0.03 x10 3/uL 0.0-0.2 N NUCLEATED RBC # (test code = 0.00 x10 3/uL 0.0-0.1 N NRBC#) MANUAL DIFF REQUIRED (test code NO = MDIFF) BASIC METABOLIC [id number] 08:45:00 Test Item Value Reference Range Interpretation Comments SODIUM (test code = NA) 140 mEq/L 134-147 N POTASSIUM (test code = 3.5 mEq/L 3.4-5.0 N K) CHLORIDE (test code = 107 mEq/L 100-108 N CL) CARBON DIOXIDE (test 26 mEq/L 21-33 N code = CO2) ANION GAP (test code = 11 0-20 N GAP) GLUCOSE (test code = 99 mg/dL 70-110 N GLU) BLOOD UREA NITROGEN 13 mg/dL 7-18 N (test code = BUN) GLOMERULAR FILTRATION 62.8 80-90 L Units of measure = RATE (test code = GFR) ml/mi n/1.73 m2 CREATININE (test code = 0.9 mg/dL 0.6-1.3 N CREAT) CALCIUM (test code = 9.2 mg/dL 8.0-10.5 N CA) [id number] 01:14:00 Test Item Value Reference Range Interpretation Comments GLUBED (test code = 143 MG/DL 70-110 H Performe d by certified GLUBED) 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 Hip surgery 4 days ago. COMPARISON EXAM(S): Previous similar studyof December 2014 TECHNIQUE: Axial images were obtained of the abdomen and pelvis from the domes of the diaphragm to the symphysis pubis without contrast material. Coronal and sagittal reconstructions were generated. DOSE: CT imaging performed at this location utilizes radiation dose optimization technique which includes one or more of the followin) Automated exposure control; 2) Adjustment of the mA and/or kV according to patient's size;3) Use of iterative reconstruction techniques. DLP (mGy-cm): 570 FINDINGS: The lung bases and pleural spaces are clear. The stomach is not distended. Oral contrast material reached normal-appearing loops of small bowel. Contrast material reached the ascending colon at the time of imaging. The gallbladder is of normal size. Complexanterior abdominal wall hernia is identified with a wide neck measuring 6.5 cm and hernia sac measuring 13 cm. This contains a segment of the transverse colon. The colon does not appear to be incarcerated or obstructed. No evidence of fluid or edema within the hernia sac. The appendix is well seen and normal. No inflammatory changes identified in either lower quadrant. Inferior pelvis is obscured by the streak artifact from the hip prostheses. The solid organs are not well evaluated without IV contrast. No dominant focal lesions noted in the liver, spleen, pancreas, or adrenal glands. The right kidney is normal without stones or hydronephrosis. The left kidney contains several low-density lesions, and one, subcentimeter high density lesion at the lateral, peripheral cortex. Low-density lesions have either not significantly changed or have density analysis compatible with simple cysts. The high density lesion is compatible with a proteinaceous cyst. No evidence of left nephrolithiasis or hydronephrosis. SKELETAL: Bone windows show no suspicious blastic or lytic lesions. No acute bony abnormalities. PAGE 1 Signed Report (CONTINUED) Name: ARETHA MIRAMONTES [facility] : 1955 Age/S: 63 / F [address] [place], [place] [address] Unit #: [id number] Loc: [place] [address] Phys: Emory Aldana DO Acct: [id number] Dis Date: Status: REG ER PHONE #: [phone] Exam Date: 11/09/2018 1815 FAX #: [phone] Reason: abdominal pain nauesea vomitting EXAMS: CPT CODE: [id number] CT ABD PELVIS W/O CONT 27194 <Continued> IMPRESSION: 1. No acute changes identified. 2. Complex, large, anterior abdominal wall umbilical hernia containing a nonobstructed segment of thetransverse colon. There is no evidence of incarceration or edema within the hernia sac, nor evidence of proximal colonic dilatation. 3. Oral contrast material reached the ascending colon at the time of imaging. No evidence of bowel obstruction. 4. Normal appendix. 5. Simple and proteinaceous left renal cysts. 6. Bilateral femoral prostheses. 7. Otherwise unremarkable noncontrast exam. SL:01 at 1845 Reported and signed by: Bk Navarro M.D. CC: Emory Aldana DO Technologist:Lara Wick, RT(R)(CT) CTDI: DLP: Trnscb Date/Time: 11/09/2018 (1844) Danielle Orig Print D/T: S: 11/09/2018 (1847) PAGE 2 Signed ReportCOMPREHENSIVE METABOLIC [id number] 17:52:00 Test Item Value Reference Range Interpretation Comments SODIUM (test code = NA) 137 mEq/L 134-147 N POTASSIUM (test code = 3.8 mEq/L 3.4-5.0 N K) CHLORIDE (test code = 102 mEq/L 100-108 N CL) CARBON DIOXIDE (test 27 mEq/L 21-33 N code = CO2) ANION GAP (test code = 12 0-20 N GAP) GLUCOSE (test code = 120 mg/dL 70-110 H GLU) BLOOD UREA NITROGEN 13 mg/dL 7-18 N (test code = BUN) GLOMERULAR FILTRATION 62.8 80-90 L Units of measure = RATE (test code = GFR) ml/mi n/1.73 m2 CREATININE (test code = 0.9 mg/dL 0.6-1.3 N CREAT) TOTAL PROTEIN (test 8.0 g/dL 6.4-8.2 N code = PROT) ALBUMIN (test code = 3.60 g/dL 3.4-5.0 N ALB) CALCIUM (test code = 10.1 mg/dL 8.0-10.5 N CA) BILIRUBIN TOTAL (test 0.50 mg/dL 0.0-1.0 N code = BILT) SGOT/AST (test code = 27 IUnit/L 15-37 N AST) SGPT/ALT (test code = 28 IUnit/L 15-65 N ALT) ALKALINE PHOSPHATASE 77 IUnit/L 20-125 N TOTAL (test code = ALKP) [id number] 17:52:00 Test Item Value Reference Range Interpretation Comments LIPASE (test code = LIP) 69 IUnit/L 73-393 L [id number] 17:52:00 Test Item Value Reference Range Interpretation Comments TROPONIN-I < 0.015 ng/mL 0.000-0.045 N Negative: <= (test code = 0.045 Positive: TROPI) >= 0.046 Correl ation with serial results, other cardiac markers andclinical findings is nec essary to determine the clinicalsignifi cance of this result. Results using different metho dologies should not be c omparedto one another as elie titative results may satya y by method. URINALYSIS [id number] 17:43:00 Test Item Value Reference Range Interpretation Comments UA COLOR (test code = COLU) YELLOW YEL/STRAW UA APPEARANCE (test code = APPU) CLEAR CLEAR UA GLUCOSE DIPSTICK (test code = NEGATIVE NEGATIVE DGLUU) UA BILIRUBIN DIPSTICK (test code NEGATIVE NEGATIVE = BILU) UA KETONE DIPSTICK (test code = NEGATIVE NEGATIVE KETU) UA SPECIFIC GRAVITY (test code = 1.013 1.005-1.030 N SGU) UA BLOOD DIPSTICK (test code = NEGATIVE NEGATIVE MELINDA) UA PH DIPSTICK (test code = CHARLI) 7.0 5.0-7.0 N UA PROTEIN DIPSTICK (test code = NEGATIVE NEGATIVE PROU) UA UROBILINIOGEN DIPSTICK (test 2.0 mg/dL 0.2-1.0 A code = URO) UA NITRITE DIPSTICK (test code = NEGATIVE NEGATIVE KATARZYNA) UA LEUKOCYTE ESTERASE DIPSTICK NEGATIVE NEGATIVE (test code = LEUU) UA WBC (test code = WBCU) 0-3 WBC/HPF 0-3 UA RBC (test code = RBCU) 4-10 RBC/HPF 0-3 UA BACTERIA (test code = BACU) TRACE /HPF NONE SEEN UA SQUAMOUS CELLS (test code = 0-5 /HPF NONE SEEN SQU) UA HYALINE CAST (test code = 0-2 /LPF NONE SEEN HYALU) UA MUCUS (test code = MUCU) TRACE /LPF NONE SEEN COMMENTS: Clean CatchCBC W/AUTO [id number] 17:35:00 Test Item Value Reference Range Interpretation Comments WHITE BLOOD CELL (test code = 7.24 x10 3/uL 4.5-11.0 N WBC) RED BLOOD CELL (test code = 3.90 x10 6/uL 3.54-5.02 N RBC) HEMOGLOBIN (test code = HGB) 11.9 g/dL 11.0-15.0 N HEMATOCRIT (test code = HCT) 35.5 % 33.0-45.0 N MEAN CELL VOLUME (test code = 91.0 fL 81.0-99.0 N MCV) MEAN CELL HGB (test code = MCH) 30.5 pg 27.0-33.0 N MEAN CELL HGB CONCETRATION 33.5 g/dL 33.0-37.0 N (test code = MCHC) RED CELL DISTRIBUTION WIDTH CV 12.3 % 11.5-14.5 N (test code = RDW) RED CELL DISTRIBUTION WIDTH SD 40.9 fL 37.0-54.0 N (test code = RDW-SD) PLATELET COUNT (test code = 366 x10 3/uL 150-400 N PLT) MEAN PLATELET VOLUME (test code 9.9 fL 7.0-9.0 H = MPV) NEUTROPHIL % (test code = NT%) 81.9 % 56.0-77.0 H IMMATURE GRANULOCYTE % (test 0.4 % 0.0-2.0 N code = IG%) LYMPHOCYTE % (test code = LY%) 9.1 % 14.0-32.0 L MONOCYTE % (test code = MO%) 4.1 % 4.8-9.0 L EOSINOPHIL % (test code = EO%) 4.1 % 0.3-3.7 H BASOPHIL % (test code = BA%) 0.4 % 0.0-2.0 N NUCLEATED RBC % (test code = 0.0 % 0-0 N NRBC%) NEUTROPHIL # (test code = NT#) 5.92 x10 3/uL 2.0-7.6 N IMMATURE GRANULOCYTE # (test 0.03 x10 3/uL 0.00-0.03 N code = IG#) LYMPHOCYTE # (test code = LY#) 0.66 x10 3/uL 1.0-3.8 L MONOCYTE # (test code = MO#) 0.30 x10 3/uL 0.1-0.8 N EOSINOPHIL # (test code = EO#) 0.30 x10 3/uL 0.0-0.2 H BASOPHIL # (test code = BA#) 0.03 x10 3/uL 0.0-0.2 N NUCLEATED RBC # (test code = 0.00 x10 3/uL 0.0-0.1 N NRBC#) MANUAL DIFF REQUIRED (test code NO = MDIFF)
[2021-09-19] MEDS ORDERED: FENTANYL CITR 100 MCG/2 ML ONE (22:35)
[2021-09-19 22:52] LABS: Absolute Lymphocytes (CBC) 1.1 K/uL (0.7-4.9); Hematocrit 33.9 % (36.0-45.0); Lymphocytes % 22.5 % (15.3-44.8); MPV 8.2 fL (7.6-11.3); RBC Red Blood Cell Count 3.84 M/uL (3.86-4.86)
[2021-09-19 22:53] LABS: Protime INR 0.96
[2021-09-19 23:02] LABS: Potassium 3.7 mmol/L (3.5-5.1)
--- NOTE | 2021-09-20 00:26 | ER ---
Nurse's Notes [facility] Name: Aretha Cardenas Age: 66 yrs Sex: Female : 1955 Arrival Date: 09/19/2021 Time: 22:07 Bed 17 Private MD: Diagnosis: Fall (on) (from) other stairs and steps;Chest pain, unspecified-from fall;Pelvic and perineal pain-from fall Presentation: 09/19 22:12 Chief complaint: Patient states: left sided rib pain s/p fall on Wednesday. Coronavirus olive screen: Vaccine status: Patient reports receiving the 2nd dose of the covid vaccine. Ebola Screen: Patient negative for fever greater than or equal to 101.5 degrees Fahrenheit, and additional compatible Ebola Virus Disease symptoms Patient denies exposure to infectious person. Patient denies travel to an Ebola-affected area in the 21 days before illness onset. Initial Sepsis Screen: Does the patient meet any 2 criteria? No. Patient's initial sepsis screen is negative. Does the patient have a suspected source of infection? No. Patient's initial sepsis screen is negative. Risk Assessment: Do you want to hurt yourself or someone else? Patient reports no desire to harm self or others. Onset of symptoms was September 11, 2021. 22:12 Method Of Arrival: EMS olive 22:12 Acuity: ANGLE 3 olive Triage Assessment: 22:16 General: Appears in no apparent distress. ambulated from EMS stretcher to ER stretcher olive with no assist. Pain: Complains of pain in left sided rib pain. 23:16 General: Behavior is calm, cooperative. olive Historical: - Allergies: 22:15 Iodine; olive - Immunization history:: Client reports receiving the 2nd dose of the Covid vaccine. - Social history:: Smoking status: Patient denies any tobacco usage or history of. Screenin:43 Abuse screen: Denies threats or abuse. Denies injuries from another. Nutritional olive screening: No deficits noted. Tuberculosis screening: No symptoms or risk factors identified. Fall Risk None identified. Assessment: 22:17 Reassessment: Patient appears in no apparent distress at this time. I recv'd the pt to olive room #17 \\[id number]\\ [id number]. Per her report, she fell on Wednesday, at home, was seen by her PCP on and x-rays were taken, but negative on both her left hip and chest, for any rib fx. She reports she is having "too much pain". She has a hx of hip replacement. Provider is at bedside. 22:44 Reassessment: Pt taken to CT. olive 09/20 00:21 Reassessment: is giving the pt the unremarkable results. olive Vital Signs: 09/19 22:12 BP 109 / 72; Pulse 74; Resp 18; Temp 98.4; Pulse Ox 100% on R/A; Pain 7/10; olive 22:16 BP 109 / 72; Pulse 74; Resp 18; Temp 98.4; Pulse Ox 100% on R/A; Pain 7/10; olive 23:24 BP 122 / 69; Pulse 68; Resp 18; Pulse Ox 100% on R/A; Pain 3/10; olive 09/20 00:30 BP 130 / 66; Pulse 73; Resp 16; Temp 98.5; Pulse Ox 100% on R/A; Pain 2/10; olive ED Course: 09/19 22:07 Patient arrived in ED. wm 22:12 Kinza Cortes, RN is Primary Nurse. olive 22:15 Triage completed. olive 22:15 Jeremy Leal PA is PHCP. cp 22:16 Wilver Hill MD is Attending Physician. cp 22:17 Arm band placed on. olive 22:43 PT-INR Sent. olive 22:43 Basic Metabolic Panel Sent. olive 22:43 CBC with Diff Sent. olive 22:44 No provider procedures requiring assistance completed. olive 23:02 CT Traumagram (Head C Spine CAP wo con) In Process Unspecified. EDMS 23:16 Patient has correct armband on for positive identification. Bed in low position. Call olive light in reach. 09/20 00:40 intact, bleeding controlled, No redness/swelling at site. Pressure dressing applied. olive Administered Medications: 09/19 22:43 Drug: fentaNYL (PF) 25 mcg Route: IVP; Site: right hand; olive 09/20 00:30 Follow up: Response: No adverse reaction; Pain is decreased olive Outcome: 09/19 23:16 Condition: stable olive 09/20 00:25 Discharge ordered by . cp 00:39 Discharged to home ambulatory, with family. olive 00:39 Discharge instructions given to patient, Instructed on discharge instructions, follow up and referral plans. medication usage, Demonstrated understanding of instructions, follow-up care, medications, Prescriptions given X 2. 00:40 Patient left the ED. olive Signatures: Dispatcher [employer] EDMS Jeremy Leal PA PA cp Marsh, Wendy wm O'Farrell, Brenda, RN RN oliev
--- NOTE | 2021-09-20 00:26 | EDPHYS ---
Physician Documentation [facility] Name: Aretha Cardenas Age: 66 yrs Sex: Female : 1955 Arrival Date: 09/19/2021 Time: 22:07 Bed 17 Private MD: ED Physician Wilver Hill HPI: 09/19 22:23 This 66 yrs old Female presents to ER via EMS with complaints of Fall. cp 22:23 Details of fall: The patient fell from an upright position, while walking. Onset: The cp symptoms/episode began/occurred 4 day(s) ago. 22:23 Associated injuries: The patient sustained injury to the chest, specifically the left cp lower lateral chest, pain with breathing, pain with movement, tenderness, left hip, ecchymosis, pelvis, painful injury. Historical: - Allergies: 22:15 Iodine; olive - Immunization history:: Client reports receiving the 2nd dose of the Covid vaccine. - Social history:: Smoking status: Patient denies any tobacco usage or history of. ROS: 22:30 Constitutional: Negative for body aches, chills, fever, poor PO intake. cp 22:30 Eyes: Negative for injury, pain, redness, and discharge. cp 22:30 ENT: Negative for drainage from ear(s), ear pain, sore throat, difficulty swallowing, difficulty handling secretions. 22:30 Cardiovascular: Positive for chest pain, of the left lateral lower rib area, Negative for edema, palpitations. 22:30 Respiratory: Negative for cough, shortness of breath, wheezing. 22:30 Abdomen/GI: Negative for vomiting, diarrhea, constipation. 22:30 MS/extremity: Positive for pain, of the pelvis. 22:30 Neuro: Negative for altered mental status, loss of consciousness, syncope, weakness. 22:30 All other systems are negative. Exam: 22:35 Constitutional: The patient appears in no acute distress, alert, awake, cp non-diaphoretic, non-toxic, well developed, well nourished, uncomfortable. 22:35 Head/Face: Normocephalic, atraumatic. cp 22:35 Eyes: Periorbital structures: appear normal, Pupils: equal, round, and reactive to light and accomodation, Extraocular movements: intact throughout, Conjunctiva: normal, no exudate, no injection, Lids and lashes: appear normal, bilaterally. 22:35 ENT: External ear(s): are unremarkable, Nose: is normal, Mouth: Lips: moist, Oral mucosa: pink and intact, moist, Posterior pharynx: Airway: no evidence of obstruction, patent. 22:35 Neck: ROM/movement: is normal, is supple, without pain, no range of motions limitations. 22:35 Chest/axilla: Inspection: normal, Palpation: crepitus, is not appreciated, tenderness, that is moderate, of the left lateral lower chest wall. 22:35 Cardiovascular: Rate: normal, Rhythm: regular, Edema: is not appreciated, JVD: is not appreciated. 22:35 Respiratory: the patient does not display signs of respiratory distress, Respirations: normal, no use of accessory muscles, no retractions, labored breathing, is not present, Breath sounds: are clear throughout, no decreased breath sounds. 22:35 Abdomen/GI: Inspection: abdomen appears normal, Bowel sounds: active, all quadrants, Palpation: abdomen is soft and non-tender, in all quadrants. 22:35 Back: vertebral tenderness, is not appreciated. 22:35 Musculoskeletal/extremity: Extremities: grossly normal except: noted in the left hip: ecchymosis, ROM: limited passive range of motion due to pain, in the left hip. 22:35 Neuro: Orientation: to person, place \T\ time. Mentation: is normal, Motor: moves all fours, strength is normal, Sensation: is normal. Vital Signs: 22:12 BP 109 / 72; Pulse 74; Resp 18; Temp 98.4; Pulse Ox 100% on R/A; Pain 7/10; olive 22:16 BP 109 / 72; Pulse 74; Resp 18; Temp 98.4; Pulse Ox 100% on R/A; Pain 7/10; olive 23:24 BP 122 / 69; Pulse 68; Resp 18; Pulse Ox 100% on R/A; Pain 3/10; olive 09/20 00:30 BP 130 / 66; Pulse 73; Resp 16; Temp 98.5; Pulse Ox 100% on R/A; Pain 2/10; olive MDM: 09/19 22:24 Patient medically screened. cp 23:00 Differential diagnosis: closed head injury, fracture, multiple trauma. cp 09/20 00:25 Data reviewed: vital signs, nurses notes, lab test result(s), radiologic studies, CT cp scan. 00:25 Counseling: I had a detailed discussion with the patient and/or guardian regarding: the cp historical points, exam findings, and any diagnostic results supporting the discharge/admit diagnosis, lab results, radiology results, the need for outpatient follow up, a family practitioner, to return to the emergency department if symptoms worsen or persist or if there are any questions or concerns that arise at home. Response to treatment: the patient's symptoms have markedly improved after treatment, VSS. Pain improved with meds. CT results negative for significant trauma. Will discharge to home for continued monitoring. 09/19 22:23 Order name: Basic Metabolic Panel; Complete Time: 00:18 cp 09/20 00:18 Interpretation: Normal except: CL 108; GLUC 119; BUN 28; CRE 1.43; GFR 36. cp 09/19 22:23 Order name: CBC with Diff; Complete Time: 00:18 cp 09/20 00:18 Interpretation: Normal except: RBC 3.84; HGB 11.5; HCT 33.9. cp 09/19 22:23 Order name: CT Traumagram (Head C Spine CAP wo con) cp 09/19 22:23 Order name: PT-INR; Complete Time: 00:18 cp 09/19 22:23 Order name: Labs collected and sent; Complete Time: 22:43 cp Administered Medications: 09/19 22:43 Drug: fentaNYL (PF) 25 mcg Route: IVP; Site: right hand; olive 09/20 00:30 Follow up: Response: No adverse reaction; Pain is decreased olive Disposition: 05:34 Co-signature as Attending Physician, Wilver Hill MD. [email or web address] Disposition Summary: 09/20/21 00:25 Discharge Ordered Location: Home cp Problem: an ongoing problem cp Symptoms: have improved cp Condition: Stable cp Diagnosis - Fall (on) (from) other stairs and steps cp - Chest pain, unspecified - from fall cp - Pelvic and perineal pain - from fall cp Followup: cp - With: Private Physician - When: 2 - 3 days - Reason: Recheck today's complaints Discharge Instructions: - Discharge Summary Sheet cp - Contusion cp - Rib Contusion cp Forms: - Medication Reconciliation Form cp - Thank You Letter cp - Antibiotic Education cp - Prescription Opioid Use cp Prescriptions: - Diclofenac Sodium 75 mg Oral tablet,delayed release (DR/EC) - take 1 tablet by ORAL route 2 times per day; 20 tablet; Refills: 0, Product cp Selection Permitted - Tramadol 50 mg Oral Tablet - take 1 tablet by ORAL route every 8 hours as needed; 12 tablet; Refills: 0, cp Product Selection Permitted Signatures: Dispatcher [employer] EDJeremy Hernandez PA PA cp Holmes, Maurice, MD MD 7 Kinza Cortes RN RN olive
[2021-09-20 01:54] VITALS: O2SAT 100
[2021-09-20 01:58] VITALS: BP 130/66; TEMP 98.5
--- NOTE | 2021-09-22 13:06 | RAD REPORT ---
EXAM DESCRIPTION: CT - Head C Spine Cap Charles Barnes - 09/20/2021 6:51 am CLINICAL HISTORY: 66-year-old female status post fall. COMPARISON: None. TECHNIQUE: CT brain without contrast. This exam was performed according to our departmental dose opt imization program which includes use of automated exposure control, adjustment of the mA and/or kV ac cording to patient size and/or use of iterative reconstruction technique. FINDINGS: Multifocal regions of patchy hypoattenuation are present in a subcortical and periventricu lar deep white matter distribution, nonspecific; however, most likely represent small vessel ischemic disease, age indeterminate. Subcentimeter focus of hypoattenuation present within the LEFT basal ganglia, age indeterminate howev er suggests sequela of prior infarction versus prominent perivascular space. The ventricles, sulci, and cisterns are symmetric and unremarkable. The seaman-white matter different iation is preserved. There is no mass effect, midline shift, intra- or extra-axial fluid collection /acute hemorrhage. The osseous structures are unremarkable. Complete opacification of the LEFT sphenoid sinus with sclerotic and thickened sinus wall suggesting chronic sinus disease. Slightly increased density content present within the sinus suggesting calcifi cation raising the possibility of inspissated versus fungal sinus content. The paranasal sinuses and mastoid air cells are otherwise clear. IMPRESSION: 1. No acute intracranial abnormalities. Nonspecific white matter change most likely sm all vessel ischemic disease, age indeterminate. 2. CT is insensitive for early evaluation of acute stroke. If there is clinical concern for acute ischemia, an MRI may be considered. 3. Chronic LEFT sphenoid sinus disease as detailed above. TECHNIQUE: Cervical spine CT was performed without contrast. Multiplanar reformatted images were pro vided. This exam was performed according to our departmental dose optimization program which includes use of automated exposure control, adjustment of the mA and/or kV according to patient size and/or u se of iterative reconstruction technique. COMPARISON: None. FINDINGS: There is normal alignment of the cervical spine without fracture or subluxation. The facet s are normal in alignment bilaterally. The posterior elements including the spinous processes are int act. Straightening of the cervical spine which may be secondary to positioning for the examination. Morphology and attenuation of the vertebral bodies and intervertebral disk spaces is compatible with multilevel degenerative change. Multilevel loss of intervertebral disk height. Multilevel posterior osseous spurring results in neuro foraminal narrowing throughout the cervical spine. Posterior osseous spurring and disk bulge present at C3-4, C4-5, C5-6 and C6-7 vertebral levels with effacement of the ventral thecal sac and at least mild central spinal canal narrowing. The pre-and paravertebral soft tissues are within normal limits. Postoperative changes of the LEFT ne ck soft tissues at the level of the carotid space. Incidentally noted enlarged thyroid nodule on the RIGHT measures 2.1 cm, (series 100, image 36). Best practice guidelines:2.1 cm incidental right thyro id nodule. Recommend thyroid US. Reference: J Am Kurtis Radiol. 2015 Jun;12(2): 143-50 IMPRESSION: 1. Straightening of the cervical spine which may be secondary to positioning for the exa mination versus spasm. 2. Multilevel degenerative change without fracture or acute subluxation. 3. 2.1 cm incidental right thyroid nodule. Recommend thyroid US. Reference: J Am Kurtis Radiol. 2014;12(2): 143-50 TECHNIQUE: CT of the chest, abdomen and pelvis was performed without intravenous administration of c ontrast. Oral contrast was not administered. Multiplanar reformatted images were provided. This exam was performed according to our departmental dose optimization program which includes use of automated exposure control, adjustment of the mA and/or kV according to patient size and/or use of iterative r econstruction technique. FINDINGS: Evaluation of solid organ pathology is limited secondary to lack of intravenous contrast. Within these limitations, the following observations are made. Chest: Evaluation through the lungs reveal no focal opacity, pleural effusion or pneumothorax. Centri lobular lucency compatible with emphysema. Heart size is within normal limits. No pericardial effusio n. Abdomen and pelvis: The liver, contracted gallbladder, pancreas, spleen, bilateral kidneys and bilate ral adrenal glands are within normal limits. Multiple renal cystic type structure is identified withi n the LEFT kidney most of which are hypoattenuating in content compatible with simple renal cysts, th e largest of which measures 3.1 cm. Three exophytic parenchymal subcentimeter cystic structures are i dentified with increased density contents compatible with proteinaceous or hemorrhagic cysts. The vessels and reveal dense atherosclerotic calcification otherwise normal in caliber. No abdominopelvic lymph nodes are noted to be pathologically enlarged by CT measurement criteria. The bowel is within normal limits without abnormal bowel wall thickness or bowel dilation. Postoperat gurpreet changes at the level of the rectosigmoid material noted. No free air. No free abdominopelvic fluid collections. The appendix is within normal limits. The osseous structures demonstrate mildly displaced fracture of the anterior LEFT side seventh and ei ghth ribs. Additionally, there is multilevel moderate to severe degenerative change of the lumbar spi ne. Grade 1 anterolisthesis of L3 relative to L4 secondary to facet hypertrophy and degenerative mack ge. Loss of disk height of L3-4, L4-5 and L5-S1 with posterior disk bulge and at least moderate neuro foraminal narrowing at those levels. Limited visualization through the pelvis secondary to metallic artifact of the bilateral total hip ar throplasty device is in gross anatomic alignment. IMPRESSION: 1. No specific acute intrathoracic or intra-abdominal findings are noted to suggest etio logy of the patient's abdominal pain. 2. Additional chronic findings as detailed above. Electronically signed by: Jennifer Segovia MD 09/20/2021 12:07 AM CDT Due to temporary technical issues with the PACS/Fluency reporting system, reports are being signed by the in house radiologist without review as a courtesy to ensure prompt reporting. The interpreting r adiologist is fully responsible for the content of the report.
== END 2021-09-20 00:40 | disposition home or self-care (01) ==
LOC: ER 22:02
DX: R07.9 Chest pain, unspecified (principal); R10.2 Pelvic and perineal pain; W10.9XXA Fall (on) (from) unspecified stairs and steps, initial encounter; Z91.048 Other nonmedicinal substance allergy status
CPT/HCPCS: 85025; 80048; 36415; 85610; 70450; 71250; 72125; 96374; 99284; J3010

== ENCOUNTER 2021-10-20 17:55 | Emergency (ER) | payer OTHER ==
--- OUTSIDE RECORDS SUMMARY | 2021-10-20 18:00 | XMS REPORT | Continuity of Care Document ---
:1955 Author Organization [facility] t Address [address] [place] [address] Care Team Providers Name Role Phone COLMENTER Attending Clinician Unavailable DESIREE Attending Clinician Unavailable SARI Attending Clinician Unavailable CHICO JOYCE Attending Clinician Unavailable WILLIAN Attending Clinician Unavailable ISIAH Attending Clinician Unavailable MD CHICO JOYCE Attending Clinician Unavailable EDWIN Attending Clinician Unavailable JONNY Attending Clinician Unavailable CAREN Attending Clinician Unavailable [...] PAIN, LEFT 11-02 13:35:56 l LOWER 00:00: [place] QUADRANT ABDOMINAL 00 PAIN, LEFT LOWER QUADRANT Active 11/02/2013 Condition 4 [facility] BLEEDING, Condition Active 2014-01-11 Memoria RECTAL/JORGE 11-02 13:35:56 l L 00:00: [place] BLEEDING, 00 RECTAL/JENAE Active 11/02/2013 Condition 4 [facility] CONSTIPATI Condition Active 2014-01-11 Memoria ON, OTHER 11-02 13:35:56 l 00:00: [place] CONSTIPATI 00 ON, OTHER Active 11/02/2013 Condition 4 [facility] COLOVAGINA Condition Active 2014-01-11 Memoria L/RECTOVAG 11-02 13:35:56 l INAL 00:00: [place] FISTULA COLOVAGINA 00 L/RECTOVAG INAL FISTULA Active 11/02/2013 Condition 4 [facility] DIVERTICUL Condition Active 2014-01-11 Memoria ITIS 11-02 13:35:56 l 00:00: [place] DIVERTICUL 00 ITIS Active 11/02/2013 Condition 4 [facility] ATHEROSCLE Condition Active 2014-01-11 Memoria ROSIS OF 10-31 13:35:56 l OTHER 00:00: [place] SPECIFIED ATHEROSCLE 00 ARTERIES ROSIS OF OTHER SPECIFIED ARTERIES Active 10/31/2013 Condition 4 [facility] DIABETES Condition Active 2014-01-11 M emoria MELLITUS 10-31 13:35:56 l WITH DIABETES 00:00: Shmuel melgoza UNSPECIFIE MELLITUS 00 D WITH COMPLICATI UNSPECIFIE ON, TYPE D II OR COMPLICATI UNSPECIFIE ON, TYPE D TYPE, II OR NOT STATED UNSPECIFIE D TYPE, UNCONTROLL NOT STATED ED UNCONTROLL ED Active 4 Condition 01/11/2014 Medical Group History of History of Problem Resolve [place] arthritis arthritis d Phys ici ans History of History of Problem Resolve [place] Arthritis Arthritis d Phys ici ans History of History of Problem Resolve [place] hypertensi hypertensi d Ph ysici on on ans History of History of Problem Resolve UT Postoperat Postoperat d Ph ysici gurpreet gurpreet ans examinatio examinatio n n History of History of Problem Resolve UT stroke stroke d Physici ans History of History of Problem Resolve UT transient transient d Phys ici cerebral cerebral ans ischemia ischemia Amaurosis Amaurosis Problem Active UT fugax fugax Physici ans Hyperchole Hyperchole Problem Active U T sterolemia sterolemia Ph ysici ans Left Left Problem Active UT shoulder shoulder Physic i pain pain ans Chronic Chronic Problem Active UT neck pain neck pain Phys ici ans Arthrosis Arthrosis Problem Active UT of left of left Physici shoulder shoulder ans Degenerati Degenerati Problem Active U T ve ve Physici cervical cervical ans spinal spinal stenosis stenosis Carotid Carotid Problem Active UT artery artery Physici stenosis stenosis ans Diabetes Diabetes Problem Active UT mellitus mellitus Physic i ans Essential Essential Problem Active UT (primary) (primary) Phys ici hypertensi hypertensi an s on on Essential Essential Problem Active UT hypertrigl hypertrigl Ph ysici yceridemia yceridemia an s Peripheral Peripheral Problem Active U T vascular vascular Physic i disease disease ans Tendinosis Tendinosis Problem Active U T Physici ans Major Problem Active 2020-11-14 Memor ia depressive 02:46:10 l disorder, Major Shmuel n Recurrent depressive episode, disorder, Moderate Recurrent episode, Moderate Active Problem 11/14/2020 [facility] Unspecifie Problem Active 2021-02-04 M emoria d anxiety 02:46:17 l disorder [place] Unspecifie d anxiety disorder Active Problem 02/04/2021 [facility] Insomnia Problem Active 2021-02-04 Mem oria due to 02:46:17 l other Insomnia Shmuel n mental due to disorder other mental disorder Active Problem 02/04/2021 [facility] Major Problem Active 2021-02-04 Memor ia depressive 02:46:17 l disorder, Major Shmuel n Recurrent depressive episode, disorder, Mild Recurrent episode, Mild Active Problem 02/04/2021 [facility] Allergies, Adverse Reactions, Alerts Allergy Allergy Status Severity Reaction(s) Onset Inactive Treating Comm ents Source Name Type Date Date Clinician Sectral Sectral Active Info Not Memori a Available 9-20 l 00:00: Sectral Sectral Active Info Not Memori a Available 8-23 l 00:00: simvasta DA Active U 2018- [facility] tin 6-27 [place] 00:[facility]: e 00 [facility] [place] simvasta DA Active U [place] 2018- [facility] tin [facility] [place] [facility] IODINE IODINE Active Memoria 6-17 l 00:00: Beta-Blo DA Active SV 2009-05 [facility] ckers 2-03 [facility] (Beta-Ad 00:00: e renergic 00 [facility] Beta-Blo DA Active SV DEPRESSION 2009-05 [facility] c[facility] 06-19 [facility] (Beta-Ad 00:00: e renergic 00 Medical [facility] simvasta DA Active U 2009-05 [facility] tin 06-19 [facility] 00:00: [facility] Iodinate DA Active SV 2009-05 [facility] d 06-17 [place] Contrast 00:00: e - Oral [facility] Dye Iodinate DA Active SV HIVES 2009-05 [facility] d 06-17 [place] Contrast 00:00: e - Oral 00 [facility] Dye Iodinate drug Active UT d allergy Physici Contrast ans Media Family History Family Member Diagnosis Comments Start Date Stop Date Source Unknown Family history of Heart Family [facility] Family Member Disease History Unknown FHx: diabetes mellitus Family [facility] Family Member History Father Family history of asthma [facility] Father Family history of [facility] essential hypertension Father Family history of [facility] hypercholesterolemia Social History Smoking Status Start Date Stop Date Source Current every day smoker [facility] Medications Ordered Filled Start Stop Current Ordering Indication Dosage Frequency Signature Comments Components Source Medication Medication Date Date Medication? Clinician (SIG) Name Name Fluoxetine Yes RICARDO 1 capsule M emoria HCl 02-04 KEYES l 02:46: [place] Fluoxetine Yes RICARDO 1 capsule M emoria HCl 02-04 KEYES l 02:46: [place] BuSpar Yes RICARDO 1 tablet Memori a 02-04 KEYES l 02:46: [place] Rosuvastati Yes RICARDO 1 tablet M emoria n Calcium 02-04 KEYES l 02:46: [place] Celecoxib Yes RICARDO 1 capsule Me moria 02-04 KEYES l 02:46: [place] Hydrochloro Yes RICARDO 2 tablet M emoria thiazide 02-04 KEYES l 02:46: [place] Fenofibrate Yes RICARDO 1 tablet M emoria -21 KEYES l 02:46: [place] Omeprazole Yes RICARDO 1 capsule M emoria -21 KEYES l 02:46: [place] Januvia 2021-0 Yes RICARDO TAKE 1 Memoria 9-21 KEYES TABLET BY l 02:46: MOUTH [place] Benavides EVERY DAY. STOP METFORMIN Ondansetron 0 Yes RICARDO 1 tab Ovidio ayala 9-21 KEYES l 02:46: [place] Metformin 0 Yes RICARDO 1 tablet Mem oria HCl 9-21 KEYES l 02:46: [place] Prozac 0 Yes RICARDO 2 capsules Ovidio ayala 9-21 [...] emoria HCl 9-21 KEYES l 02:46: [place] Benavides Rosuvastati 0 Yes RICARDO 1 tablet M emoria n Calcium 9-21 KEYES l 02:46: [place] Fenofibrate 0 Yes RICARDO 1 tablet M emoria 9-21 KEYES l 02:46: [place] Benavides Celecoxib 0 Yes RICARDO 1 capsule Me moria 9-21 KEYES l 02:46: [place] Hydrochloro 0 Yes RICARDO 2 tablet M emoria thiazide 9-21 KEYES l 02:46: [place] Benavides Metformin 0 Yes RICARDO 1 tablet Mem oria HCl 9-21 KEYES l 02:46: [place] Benavides Omeprazole 0 Yes RICARDO 1 capsule M emoria 9-21 KEYES l 02:46: [place] Benavides Aspirin 0 Yes RICARDO 1 tablet Memor ia 9-21 KEYES l 02:46: [place] Benavides Januvia 0 Yes RICARDO TAKE 1 Memoria 9-21 KEYES TABLET BY l 02:46: MOUTH [place] Benavides EVERY DAY. STOP METFORMIN Ondansetron 0 Yes RICARDO 1 tab Ovidio ayala 9-21 KEYES l 02:46: [place] Benavides Prozac 0 Yes RICARDO 2 capsules Ovidio ayala 9-21 KEYES l 02:46: [place] BuSpar Yes RICARDO 1 tablet Memori a 9-21 KEYES l 02:46: [place] Melatonin 0 Yes RICARDO 2 tablets Me moria 9-21 KEYES at bedtime l 02:46: as needed [place] Celecoxib Yes RICARDO 1 capsule Me moria 8-24 KEYES l 02:46: [place] Omeprazole 0 Yes RICARDO 1 capsule M emoria 8-24 KEYES l 02:46: [place] Rosuvastati Yes RICARDO 1 tablet M emoria n Calcium 8-24 KEYES l 02:46: [place] Fenofibrate Yes RICARDO 1 tablet M emoria 8-24 KEYES l 02:46: [place] Hydrochloro Yes RICARDO 2 tablet M emoria [...] a 8-24 KEYES l 02:46: [place] Januvia Yes RICARDO TAKE 1 Memoria 8-24 KEYES TABLET BY l 02:46: MOUTH [place] EVERY DAY. STOP METFORMIN Prozac 0 Yes RICARDO 2 capsules Ovidio ayala 8-24 KEYES l 02:46: [place] Melatonin Yes RICARDO 2 tablets Me moria 8-24 KEYES at bedtime l 02:46: as needed [place] Fluoxetine 0 Yes RICARDO 1 capsule M emoria HCl 8-24 KEYES l 02:46: [place] Fluoxetine Yes RICARDO 1 capsule M emoria HCl 8-24 KEYES l 02:46: [place] Celecoxib Yes RICARDO 1 capsule Me moria 8-24 KEYES l 02:46: [place] Omeprazole Yes RICARDO 1 capsule M emoria 8-24 KEYES l 02:46: [place] Rosuvastati Yes RICARDO 1 tablet M emoria n Calcium 8-24 KEYES l 02:46: [place] Fenofibrate Yes RICARDO 1 tablet M emoria 8-24 KEYES l 02:46: [place] Hydrochloro Yes RICARDO 2 tablet M emoria thiazide 8-24 KEYES l 02:46: [place] Metformin Yes RICARDO 1 tablet Mem oria HCl 8-24 KEYES l 02:46: [place] Aspirin Yes RICARDO 1 tablet Memor ia 8-24 KEYES l 02:46: [place] Ondansetron Yes RICARDO 1 tab Ovidio ayala 8-24 KEYES l 02:46: [place] BuSpar Yes RICARDO 1 tablet Memori a 8-24 KEYES l 02:46: [place] Januvia Yes RICARDO TAKE 1 Memoria 8-24 KEYES TABLET BY l 02:46: MOUTH [place] EVERY DAY. STOP METFORMIN Prozac Yes RICARDO 2 capsules Ovidio ayala 8-24 KEYES l 02:46: [place] Melatonin Yes RICARDO 2 tablets Me moria 8-24 KEYES at bedtime l 02:46: as needed [place] Fluoxetine Yes RICARDO 1 capsule M emoria HCl 8-24 KEYES l 02:46: [place] Fluoxetine Yes RICARDO 1 capsule M emoria HCl 8-24 KEYES l 02:46: [place] Fluoxetine Yes RICARDO 1 capsule M emoria HCl 7-27 KEYES l 00:00: [place] Fluoxetine Yes RICARDO 1 capsule M emoria HCl 7-27 KEYES l 00:00: [place] Fluoxetine Yes RICARDO 1 capsule M [...] Memori a 3-26 Lidasan l 02:47: Prozac 2020-0 Yes Sandoval 4 capsule Memori a 3-26 Lidasan l 02:47: Prozac 0 Yes Sandoval 4 capsule Memori a 3-26 Lidasan l 02:47: Omeprazole 2020-0 Yes Veronique 1 capsule Memoria [...] traMADol 2015-05 Yes CHRISTOPHE-JOSH TAKE 1 TO UT HCl - 50 MG HCl - 50 MG 2-05 YEH D.O. 2 TABLETS Physici Oral Tablet Oral Tablet 00:00: EVERY 6 ans 00 HOURS NEEDED FOR PAIN. Cyclobenzap Cyclobenzap 2015-05 Yes CHRISTOPHE-JOSH TAKE 1 UT rine HCl - rine HCl - 2-05 YEH D.O. TABLET 3 Physici 10 MG Oral 10 MG Oral 00:00: TIMES ans Tablet Tablet 00 DAILY NEEDED. FLAGYL TAB No 1 tablet Mem oria 500MG 8-08 twice l 00:00: daily X 7 days FLAGYL TAB No 1 tablet Mem oria 500MG 8-08 twice l 00:00: daily X 7 days ASPIRIN EC Yes Memoria LOW DOSE 81 6-17 l MG TBEC 00:00: ESCITALOPRA Yes Memori a M OXALATE 6-17 l 20 MG TABS 00:00: METFORMIN Yes Memoria HCL 500 MG 6-17 l [...] 00:00: CeleBREX CeleBREX Yes QD TAKE 1 UT 200 MG Oral 200 MG Oral CAPSULE Physici Capsule Capsule DAILY ans NEEDED. Lexapro 20 Lexapro 20 Yes 1 QD TAKE 1 U T MG Oral MG Oral TABLET Physici Tablet Tablet DAILY. ans Tricor 145 Tricor 145 Yes 1 QD TAKE 1 U T MG Oral MG Oral TABLET Physici Tablet Tablet DAILY. ans amLODIPine- amLODIPine- Yes QD TAKE 1 UT Valsartan-H Valsartan-H TABLET Physici CTZ CTZ DAILY ans 320-25 10320-25 DIRECTED. MG Oral MG Oral Tablet Tablet Potassium Potassium Yes 1 QD TAKE 1 UT Chloride Chloride TABLET Physi ci Barbara ER 20 Barbara ER 20 DAILY. a ns MEQ Oral MEQ Oral Tablet Tablet Extended Extended Release Release metFORMIN metFORMIN Yes Q0.5D TAKE 1 UT HCl - 1000 HCl - 1000 TABLET P hysici MG Oral MG Oral TWICE ans Tablet Tablet DAILY WITH MEALS. Crestor 40 Crestor 40 Yes 1 QD TAKE 1 U T MG Oral MG Oral TABLET Physici Tablet Tablet DAILY. ans Lexapro Lexapro Yes UT TABS TABS Physici ans hydroCHLORO hydroCHLORO Yes U T thiazide thiazide Physici TABS TABS ans CeleBREX CeleBREX Yes UT CAPS CAPS Physici ans Vital Signs Vital Name Observation Time Observation Value Comments Source Weight 2020-07-22 21:45:00 [facility] Weight 2020-06-24 19:30:00 [facility] 2020-05-27 21:45:00 [facility] Weight 2020-04-24 21:45:00 [facility] Weight 2020-03-28 22:15:00 [facility] Weight 2020-02-29 20:15:00 [facility] [place] Weight 2020-02-15 19:30:00 [facility] [place] Weight 2019-05-15 16:15:00 [facility] [place] Height 2019-05-15 16:15:00 [facility] Heart Rate 2019-05-15 16:15:00 [facility] [place] Diastolic (mm Hg) 2019-05-15 16:15:00 [facility] [place] Systolic (mm Hg) 2019-05-15 16:15:00 [facility] [place] Weight 2014-01-11 18:35:56 [facility] [place] Temperature Oral (F) 2014-01-11 18:35:56 98.7 F [facility] [place] Heart Rate 2014-01-11 18:35:56 [facility] [place] Systolic (mm Hg) 2014-01-11 18:35:56 Ovidio rial [place] Diastolic (mm Hg) 2014-01-11 18:35:56 [facility] orial [place] Weight 2013-12-29 20:27:02 [facility] [place] Temperature Oral (F) 2013-12-29 20:27:02 99.0 F [facility] [place] Heart Rate 2013-12-29 20:27:02 [facility] [place] Systolic (mm Hg) 2013-12-29 20:27:02 Ovidio rial [place] Diastolic (mm Hg) 2013-12-29 20:27:02 Mem orial [place] Weight 2013-12-22 18:42:34 [facility] [place] Temperature Oral (F) 2013-12-22 18:42:34 98.6 F [facility] [place] Heart Rate 2013-12-22 18:42:34 [facility] [place] Systolic (mm Hg) 2013-12-22 18:42:34 Ovidio rial [place] Diastolic (mm Hg) 2013-12-22 18:42:34 Mem orial [place] Weight 2013-12-14 14:20:08 [facility] [place] Temperature Oral (F) 2013-12-14 14:20:08 98.6 F [facility] [place] Heart Rate 2013-12-14 14:20:08 [facility] [place] Systolic (mm Hg) 2013-12-14 14:20:08 Ovidio rial [place] Diastolic (mm Hg) 2013-12-14 14:20:08 Mem orial [place] Weight 2013-11-28 18:19:41 [facility] [place] Temperature Oral (F) 2013-11-28 18:19:41 98.5 F [facility] [place] Heart Rate 2013-11-28 18:19:41 [facility] [place] Systolic (mm Hg) 2013-11-28 18:19:41 Ovidio rial [place] Diastolic (mm Hg) 2013-11-28 18:19:41 Mem orial [place] Height 2013-10-31 19:53:28 [facility] [place] Weight 2013-10-31 19:53:28 [facility] [place] Temperature Oral (F) 2013-10-31 19:53:28 98.7 F [facility] [place] Heart Rate 2013-10-31 19:53:28 [facility] [place] Systolic (mm Hg) 2013-10-31 19:53:28 Ovidio rial [place] Diastolic (mm Hg) 2013-10-31 19:53:28 Mem orial [place] Procedures Procedure Date / Time Performing Clinician Source Performed [facility] - Bilateral Carotid Duplex 2019-04-18 00:00:00 [facility] - [id number] [facility] - Bilateral Carotid Duplex 2018-04-19 00:00:00 [facility] - [id number] [facility] - Bilateral Carotid Duplex 2017-03-08 00:00:00 [facility] - [id number] [facility] - KATH - [id number] 2017-03-08 00:00:00 [facility] Thromboendarte[facility] Hip Replacement [facility]ste[facility] Encounters Start End Encounter Admission Attending Care Care Encounter Source Date/Time Date/Time Type Type Clinicians Facility Department ID 2021-02-10 Outpatient [id number] Memoria 11:35:18 [id number] [place] [id number] 2021-02-07 Outpatient [id number] Memoria 13:24:15 [id number] [place] [id number] 2021-10-10 2021-10-10 Outpatient COLMENT, [facility] [id number] [place] 00:00:00 00:00:00 DIEGO 877 Method i 2021-09-25 2021-09-25 [facility] [id number] [place] 00:00:00 00:00:00 DIEGO 138 Method i 2021-09-18 2021-09-18 Outpatient [facility] [id number] [place] 00:00:00 00:00:00 ALECIA 519 Method i 2021-09-18 2021-09-18 Outpatient [facility] [id number] [place] 00:00:00 00:00:00 ALECIA 165 Method i 2021-09-18 2021-09-18 Outpatient [facility] [id number] [place] 00:00:00 00:00:00 ALECIA 320 Method i 2021-08-26 2021-08-26 Outpatient COLMENTER, [place] [id number] [place] 00:00:00 00:00:00 DIEGO [address] 2021-08-12 2021-08-12 Outpatient ALI, HIBA [facility] [id number] [place] 00:00:00 00:00:[address] 2021-08-12 2021-08-12 Outpatient MAKHOUL, [facility] [id number] [place] 00:00:00 00:00:00 ALECIA [address] 2021-08-11 2021-08-11 Outpatient COLMENTER, [facility] [id number] [place] 00:00:00 00:00:00 DIEGO [address] 2021-08-07 2021-08-07 Outpatient MAKHOUL, [facility] [id number] [place] 00:00:00 00:00:00 ALECIA [address] 2021-08-07 2021-08-07 Outpatient MAKHOUL, [facility] [id number] [place] 00:00:00 00:00:00 ALECIA [address] 2021-07-11 2021-07-11 Outpatient COLMENTER, [facility] [id number] [place] 00:00:00 00:00:00 DIEGO [address] 2021-06-30 2021-06-30 Outpatient [facility] [id number] [place] 00:00:00 00:00:[address] 2021-04-29 2021-04-29 Outpatient COLMENTER, [facility] [id number] [place] 00:00:00 00:00:00 DIEGO [address] 2021-04-01 2021-04-01 Outpatient MAKHOUL, [facility] [id number] [place] 00:00:00 00:00:00 ALECIA [address] 2021-04-01 2021-04-01 Outpatient MAKHOUL, [facility] [id number] [place] 00:00:00 00:00:00 ALECIA [address] 2021-03-26 2021-03-26 Outpatient COLMENTER, [facility] [id number] [place] 00:00:00 00:00:00 DIEGO [address] 2021-02-10 2021-02-10 Outpatient ALI, HIBA [facility] [id number] [place] 00:00:00 00:00:[address] 2021-02-10 2021-02-10 Outpatient ALI, HIBA [facility] [id number] [place] 00:00:00 00:00:[address] 2021-02-07 2021-02-07 Outpatient ALI, HIBA [facility] [id number] [place] 00:00:00 00:00:[address] 2021-01-22 2021-01-22 Outpatient ALI, HIBA [facility] [id number] [place] 00:00:00 00:00:[address] 2021-01-14 2021-01-14 Outpatient ALI, HIBA [facility] [id number] [place] 00:00:00 00:00:[address] 2020-12-18 2020-12-18 Outpatient MAKHOUL, [facility] [id number] [place] 00:00:00 00:00:00 ALECIA [address] 2020-08-27 2020-08-27 Outpatient CHERELLEHOUL, [facility] [id number] [place] 00:00:00 00:00:00 ALECIA [address] 2020-08-05 2020-08-05 Outpatient JOYCE, [facility] [id number] 11:41:00 13:29:[address] [facility] 2020-06-17 2020-06-17 Outpatient KRONFOL, [facility] [id number] [place] 00:00:00 00:00:00 ZIAD [address] 2020-06-13 2020-06-13 Outpatient JOYCE, [facility] [id number] [place] 00:00:00 00:00:00 SVETANG [address] 2020-06-11 2020-06-11 Outpatient JOYCE, [facility] [id number] [place] 00:00:00 00:00:00 SVETANG [address] 2020-05-08 2020-05-08 Outpatient JOYCE, [facility] [id number] [place] 00:00:00 00:00:00 SVETANG [address] 2019-12-12 2019-12-12 Outpatient EDWIN, [facility] [id number] [place] 00:00:00 00:00:00 MADY 884 Method i 2019-11-21 2019-11-21 Outpatient DESIREE, [facility] [id number] [place] 00:00:00 00:00:00 ALECIA 848 Method i 2019-07-13 2019-07-13 Outpatient EDWIN, [facility] [id number] [place] 00:00:00 00:00:00 MADY 616 Method i 2019-06-04 2019-06-08 Inpatient TEQWIMDIMASH, [facility] [id number] [place] 00:00:00 00:00:00 PATRICK 160 Method i 2019-05-30 2019-05-30 Appointjohn FABIAN [facility] Thoracic [id number] [place] 10:00:00 10:00:00 t; ALLYSON FABIAN, Surgery - P lona VALADEZ M.D. [facility] kristine Hogan 2019-05-12 2019-05-12 Outpatient DANNI Ferreira, [facility] KYA [id number] [facility] 12:00:00 12:00:00 Dominic [id number] [facility] 2019-04-18 2019-04-18 Franco VASCULAR, [facility] Thoracic [id number] [place] 10:00:00 10:00:00 t; Surgery - Phys ici VASCULAR, [facility] 2018-05-03 2018-05-03 JIMMY [facility] [id number] [place] 10:15:00 10:15:00 t; ALLYSON FABIAN cic and Jefry VALADEZ M.D. Vascular ans M.D. Surgery at [facility] 2018-04-19 2018-04-19 Franco VASCULAR [facility] Cardiothora [id number] [place] 10:30:00 10:30:00 t; SE cic and Physic i VASCULAR, Vascular ans SE Surgery at [facility] 2017-03-23 2017-03-23 Franco FABIAN [facility] Cardiothora [id number] [place] 11:00:00 11:00:00 t; ALLYSON FABIAN cic and Jefry VALADEZ M.D. Vascular ans M.D. Surgery at [place] 2017-03-08 2017-03-08 Appointjohn VASCULAR, [facility] UTP [id number] [place] 10:30:00 10:30:00 t; SE Physic i VASCULAR, ans 2017-03-08 2017-03-08 Appointmen VASCULAR, [facility] UTP [id number] [place] 10:00:00 10:00:00 t; SE Physic i VASCULAR, ans SE 2017-02-09 2017-02-09 Appointmen CAREN, [facility] UTP [id number] [place] 09:45:00 09:45:00 t; ALLYSON FABIAN Phy sici GORDON, M.D. ans M.D. 2016-04-20 2016-04-20 Appointmen ALY, JIMMY UTP [id number] [place] 15:00:00 15:00:00 t; SHERIDAN LU Phy sici SHAO-CHUN, D.O. ans D.O. 2014-01-11 2014-01-11 [facility] [id number] Memoria 00:00:00 00:00:00 Visit nargis Hull [id number] [facility] [place] [facility] Colorectal [facility] 2013-12-29 2013-12-29 [facility] [id number] Memoria 00:00:00 00:00:00 Visit nargis Hull [id number] [facility] [place] [facility] Colorectal [facility] 2013-12-22 2013-12-22 Office [facility] [id number] Memoria 00:00:00 00:00:00 Visit nargis Hull [id number] [facility] 2013-12-14 2013-12-14 Office [facility] [id number] Memoria 00:00:00 00:00:00 Visit nargis Hull [id number] [facility] 2013-11-28 2013-11-28 Office [facility] [id number] Memoria 00:00:00 00:00:00 Visit nargis Hull [id number] l [facility] [place] [facility] Colorectal [facility] 2013-11-02 2013-11-02 Lab Report [facility] [id number] Memoria 00:00:00 00:00:00 nargis Hull [id number] [facility] [place] 2013-10-31 2013-10-31 Office [facility] [id number] Memoria 00:00:00 00:00:00 Visit nargis Hull [id number] l [facility] [place] [facility] Colorectal [facility] Results Test Description Test Time Test Comments Results Result Sourc e Comments SCR MAMM BILATERAL 2021-05-06 BRITTANY CAD DIGITAL 16:03:02 Name: Aretha DOB: 1955 Sex: F - SCR MAMM BILATERAL BRITTANY CAD DIGITALBILATERAL DIGITAL SCREENING MAMMOGRAM 3D/2D WITH CAD: 05/02/2021LINICAL: Asymptomatic. Digital breast tomosynthesis was performed in addition to routine CC and MLO views. Current mammographic images were evaluated by [employer] CAD (computer-aided detection) software. Comparison is made to exam dated 05/12/2019 mammogram - [facility]. The tissue of both breasts is predominantly fatty. No suspicious mass, architectural distortion, malignant type calcification, or lymph node abnormality detected. Breast architecture is stable compared to prior exams.IMPRESSION: NEGATIVEThere is no mammographic evidence of malignancy. Resume annual screening mammography in one year. Hernan wade/doni:05/06/2021 16:03:02 Grounds And Nursery Specialist: Corazon THOMPSON, [facility]-FWletter sent: BIRADS 1-2 Normal Mammogram BI-RADS: 1 Negative SARS-CoV-2 (COVID-19) RNA [Presence] in Respiratory sp ecimen by 2020-06-12 02:03:28 HARVINDER with probe detection Test Item Value Reference Range Interpretation Comme nts SARS-CoV-2 (COVID-19) RNA [Presence] in Respiratory Not detected No t-Detected specimen by HARVINDER with probe detection (test code = 86580-4) SURGICAL [id number] 07:38:00 RUN DATE: 11/25/18 [facility] *LIVE* PAGE 1 RUN TIME: 737 Specimen Inquiry RUN USER: INTERFACE PATIENT: ARETHA MIRAMONTES LOC: Paul U #: [id number] AGE/SX: 63/F ROOM: [facility] RE11/11/18REG DR: Criss Spring MD : 53 BED: 1 DIS: 11/15/18 STATUS: DIS IN TLOC: SPEC #: [id number] RECD: 11/11/18 STATUS: SUKHDEEP RIVERA #: [id number] PATRICIA: 11/11/[address] [facility] [address]: Criss Spring MD ENTERED: 11/24/18 SP TYPE: SURG SPEC OTHR DR: Self Referred Tobi Joyce MD, Altaf MD Makhoul, Claudia MD Voloyiannis, Theodoros MDORDERED: GM LEVEL 4 CODES: [id number] - STOMACH, NOS COPIES TO: Self Referred Tobi Joyce MD [address] [place], [place] [id number] [place] [address] [facility] [address] [place] [address] [email or web address] [address] [place] [id number] Criss Spring MD [address] [place] [address] Le Kramer MD [address] [place] [address] [address] [place] [address] [email or web address] PROCEDURES: GM LEVEL 4 (Incomplete) TISSUES: 1. STOMACH, NOS - Stomach, bx. CONTINUED ON NEXT PAGE RUNDATE: 11/25/18 [facility] *LIVE* PAGE 2 RUN TIME: 0738 Specimen Inquiry RUN USER: INTERFACE SPEC #: [id number] PATIENT: MIRAMONTESARETHA CAT #[id number] (Continued) FINAL DIAGNOSIS Stomach, antrum, biopsy: Mild [...] REPORT - HEPA IMAG INCL GB W [id number] 10:20:00 FAX: Michel Barrios [phone] [place]: St: ADM FAX: Amada Cordova [phone] FAX: Criss Spring MD [phone] Name: ARETHA MIRAMONTES [facility] Geni : 1955 Age/S: 63/F [address] [place] [address] Unit #: [id number] Loc: [address] [place] [address] Phys: Michle Barrios Acct: [id number] Dis Date: Status: ADM IN PHONE #: [phone] Exam Date: 11/14/2018 1002 FAX #: [phone] Reason: abd pain and N/V EXAMS: CPT CODE: [id number] HEPA IMAG INCL GB W PHA 52742 Nuclear medicine hepatobiliary scan HISTORY: Nausea and [...] cholecystitis. 2. Normal gallbladder ejection fraction. SL: [id number] at 1020 Reported and signed by: Orlando Lorenzo M.D. CC: Micehl Barrios; Alecia Cordova MD; Criss Spring MD Technologist: Alis Rivera, RT(N) RESEARCH TEST ENGINE OPERATOR; ... Trnscrd Date/Time/By: 11/14/2018 (1020) : By: [email or web address] Orig Print D/T: S: 11/14/2018 (0232) PAGE 1 Signed Report- XR CHEST 2 [id number] 10:11:00 FAX: Michel Barrios [phone] [place]: St: ADM FAX: Amada Cordova [phone] FAX: Criss Spring MD [phone] Name: ARETHA MIRAMONTES [facility] [place] : 1955 Age/S: 63/F [address] [place] [address] Unit #: [id number] Loc: G.C144 [place] [address] Phys: Michel Barrios Acct: [id number] Dis Date: Status: ADM IN PHONE #: [phone] Exam Date: 11/11/2018 0743 FAX #: [phone] Reason: PRE OP PROTOCOL EXAMS: CPT CODE: [id number] XR CHEST 2 V 61842 2 view chest x-ray performed November 11, [...] Cristopher(Nargis) Trnscrd Date/Time/By: 11/11/2018 (1011) : By: Porsche Orig Print D/T: S: 11/11/2018 (1014) PAGE 1 Signed Report- US ABDOMEN [id number] 08:33:00 Name: ARETHA MIRAMONTES [facility] Racheal [place] : 1955 Age/S: 63 / F [address] [place] [address] Unit #: [id number] Loc: [id number] Phys: [place] Green[place] palencia KATHERIN Acct: [id number] Dis Date: Status: ADM IN PHONE #: [phone] Exam Date: 11/11/2018808 FAX #: [phone] Reason: n/v/abdpain EXAMS: CPTCODE: [id number] ABDOMEN [facility] [address] PROCEDURE: RIGHT UPPER QUADRANT ULTRASOUND INDICATION: Nausea, [...] dilatation. 2. Fatty infiltration of liver. SL: [id number] at 0833 Reported and signed by: Orlando Lorenzo M.D. CC: Michel Barrios; Alecia Cordova MD; Criss Spring MD Technologist: Claudia lutz RDMS(Isabella)(BR) Trnscb Date/Time: 11/11/2018 (832) [email or web address] Orig Print D/T: S: 11/11/2018 (0836) Probe: PAGE 1 Signed ReportPROTHROMBIN [id number] 03:51:00 Test Item Value Reference Range Interpretation [...] o prevent recurre nt infarct). THROMBOPLASTIN TIME [id number] 03:51:00 Test Item Value Reference Range Interpretation Comments THROMBOPLASTIN TIME 32.3 Seconds 25.0-39.5 N Ther apeutic PARTIAL (test code = Range: 50.4 - 88.3 PTT) Seconds Effective 08/30/2018 - NM GASTRIC [id number] 15:11:00 FAX: Alecia Cordova MD [phone] [place]: St: [facility] FAX: Criss Spring MD [phone] Name: ARETHA MIRAMONTES [facility] : 1955 Age/S: 63/F [address] [place] [address] Unit #: [id number] Loc: G.C144 [place] [address] Phys: Criss Spring MD Acct: [id number] Dis Date: Status: ADM IN PHONE #: [phone] Exam Date: 11/10/2018 1508 FAX #: [phone] Reason: nausea /vomiting, r/o gastroparesis EXAMS: CPT CODE: [id number] NM GASTRIC EMPTYING 56892 NUCLEAR MEDICINE GASTRIC EMPTYING STUDY. INDICATION: Intractable [...] minutes. IMPRESSION: Normal gastric emptying study. SL: SG-H at 1511 Reported and signed by: Chacorta Conde M.D. 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 [facility] - CT ABD PELVIS W/O [id number] 18:45:00 Name: ARETHA MIRAMONTES [facility] : 1955 Age/S: 63 / F [address] [place] [address] Unit #: [id number] Loc: [place] [id number] Phys: Emory Aldana DO Acct: [id number] Dis Date: Status: REG ER PHONE #: [phone] Exam Date: 11/09/2018 181 FAX #: [phone] Reason: abdominal pain nauesea vomitting EXAMS: CPTCODE: [id number] CT ABD PELVIS W/O CONT 76663 CT SCAN OF THE ABDOMEN AND PELVIS [...] 1 Signed Report (CONTINUED) Name: ARETHA MIRAMONTES [facility] : 1955 Age/S: 63 / F [address] [place], [place] [address] Unit #: [id number] Loc: [place] [address] Phys: Emory Aldana DO Acct: [id number] Dis Date: Status: REG ER PHONE #: [phone] Exam Date: 11/09/20181814 FAX #: [phone] Reason: abdominal pain nauesea vomitting EXAMS: CPT CODE: [id number] CT ABD PELVIS W/O CONT 61821 <Continued> IMPRESSION: 1. No acute changes identified. [...] Bk Navarro M.D. CC: Emory Aldana DO Technologist:RT Dorota(R)(CT) CTDI: DLP: Trnscb Date/Time: 11/09/2018 (184) Danielle Orig Print D/T: S: 11/09/2018 (1847) PAGE 2 Signed ReportCOMPREHENSIVE METABOLIC [id number] 17:52:00 Test Item Value Reference Range Interpretation [...] 20-125 N TOTAL (test code = ALKP) [id number] 17:52:00 Test Item Value Reference Range Interpretation Comments LIPASE (test code = LIP) 69 IUnit/L 73-393 L [id number] 17:52:00 Test Item Value Reference Range Interpretation [...] results may satya y by method. URINALYSIS [id number] 17:43:00 Test Item Value Reference Range Interpretation [...] /LPF NONE SEEN COMMENTS: Clean CatchCBC W/AUTO [id number] 17:35:00 Test Item Value Reference Range Interpretation [...]
[2021-10-20] MEDS ORDERED: MORPHINE 4 MG/ML SYR ONE (20:49)
--- NOTE | 2021-10-20 21:11 | RAD REPORT ---
EXAM DESCRIPTION: RAD - Hip Bilateral With Pelvis - 10/20/2021 8:40 pm CLINICAL HISTORY: Multiple falls, pelvis and hip pain COMPARISON: None. TECHNIQUE: AP view of the pelvis and hip joints was obtained with frogleg views of each hip joint. FINDINGS: Advanced disc and endplate degenerative change at L4-5. Sacral ala assessment is limited b ut no fracture is seen. No diastases of the pubic symphysis or SI joints. No fracture or acute findin g of the bony pelvis. Bilateral total hip prostheses in place. Heterotopic bone is seen along the sup erior margin of the left greater trochanter. No implant or proximal femur acute finding. No suspiciou s soft tissue finding. IMPRESSION: Pelvis and bilateral hip examination shows no acute or significant finding.
--- NOTE | 2021-10-20 21:44 | ER ---
Nurse's Notes [facility] Name: Aretha Cardenas Age: 66 yrs Sex: Female : 1955 Arrival Date: 10/20/2021 Time: 17:58 Bed 12 Private MD: Diagnosis: Lumbago with sciatica;Pain in hip Presentation: 10/20 18:32 Chief complaint: Patient states: Bilateral hip pain that radiates to her back and ww bilateral legs. Patient states she fell on her left hip on 09/22 and on her right hip on 08/18. Coronavirus screen: Client denies travel out of the [place] in the last 14 days. Ebola Screen: Patient denies travel to an Ebola-affected area in the 21 days before illness onset. Initial Sepsis Screen: Does the patient meet any 2 criteria? No. Patient's initial sepsis screen is negative. Does the patient have a suspected source of infection? No. Patient's initial sepsis screen is negative. Risk Assessment: Do you want to hurt yourself or someone else? Patient reports no desire to harm self or others. Onset of symptoms is unknown. 18:32 Method Of Arrival: Wheelchair ww 18:32 Acuity: ANGLE 4 ww Historical: - Allergies: 18:34 Iodine; ww - Home Meds: 18:34 valsartan-hydrochlorothiazide oral [Active]; Crestor oral [Active]; gabapentin oral ww [Active]; meloxicam oral [Active]; - PMHx: 18:34 Hypertensive disorder; Hypercholesterolemia; ww - PSHx: 18:34 bilateral hip replacement; colon resection; ww - Immunization history:: Adult Immunizations up to date. - Social history:: Smoking status: Patient reports the use of cigarette tobacco products, smokes two packs cigarettes per day. Screenin:59 Abuse screen: Denies threats or abuse. Denies injuries from another. Nutritional ld1 screening: No deficits noted. Tuberculosis screening: No symptoms or risk factors identified. Fall Risk None identified. Assessment: 21:59 Reassessment: See triage assessment. ld1 Vital Signs: 18:32 BP 141 / 72; Pulse 76; Resp 18; Temp 98.9; Pulse Ox 98% ; Weight 72.57 kg; Height 5 ft. ww 6 in. (167.64 cm); Pain 6/10; 21:59 BP 139 / 77; Pulse 73; Resp 18; Pulse Ox 99% on R/A; Pain 2/10; ld1 18:32 Body Mass Index 25.82 (72.57 kg, 167.64 cm) ED Course: 17:58 Patient arrived in ED. as 17:58 Gail Navarro, ALINA is PHCP. aj3 17:58 Venu Gonzalez MD is Attending Physician. aj3 18:34 Triage completed. ww 18:34 Arm band placed on. ww 20:41 Hip Bilateral With Pelvis In Process Unspecified. EDMS 20:41 Deedee Crocker, RN is Primary Nurse. ld1 21:59 Patient has correct armband on for positive identification. Placed in gown. Bed in low ld1 position. Call light in reach. Side rails up X2. kiln puller on. Pulse ox on. NIBP on. Door closed. Noise minimized. Warm blanket given. 21:59 No provider procedures requiring assistance completed. Patient did not have IV access ld1 during this emergency room visit. Administered Medications: 20:44 Drug: morphine 4 mg Route: IM; Site: right deltoid; ld1 21:30 Drug: [place] (HYDROcodone-acetaminophen) 10 mg-325 mg 1 tabs Route: PO; ld1 21:46 Follow up: Response: No adverse reaction ld1 21:30 Drug: predniSONE 40 mg Route: PO; ld1 21:46 Follow up: Response: No adverse reaction ld1 Medication: 21:59 VIS not applicable for this client. ld1 Outcome: 21:43 Discharge ordered by . aj3 21:59 Discharged to home ambulatory. ld1 21:59 Condition: stable 21:59 Discharge instructions given to patient, family, Instructed on discharge instructions, follow up and referral plans. medication usage, Demonstrated understanding of instructions, follow-up care, medications, Prescriptions given X 3. 22:00 Patient left the ED. ld1 Signatures: Dispatcher [employer] EDVA Taylor Grubbs as Deedee Crocker, RN RN ld1 Cat Posey RN RN Gail Navarro, ALINA COMMERCIAL INTERIOR DESIGNER aj3
--- NOTE | 2021-10-20 21:44 | EDPHYS ---
Physician Documentation [facility] Name: Aretha Cardenas Age: 66 yrs Sex: Female : 1955 Arrival Date: 10/20/2021 Time: 17:58 Bed 12 Private MD: ED Physician Venu Gonzalez HPI: 10/20 18:51 This 66 yrs old Female presents to ER via Wheelchair with complaints of Hip Pain. aj3 18:51 The patient or guardian reports pain. The complaints affect the Bilateral. Onset: The aj3 symptoms/episode began/occurred gradually, 2 month(s) ago. Modifying factors: the symptoms are aggravated by any movement. Associated signs and symptoms: Pertinent positives: Tingling to bilateral legs. Patient noted to have chronic bilateral hip pain secondary to 2 falls that she had in July and then again in September. She has not been able to see an orthopedic physician for evaluation yet due to her surgeon retiring. She does have history of bilateral hip replacements. Her next appointment is October 31 as a virtual visit.. Historical: - Allergies: 18:34 Iodine; ww - Home Meds: 18:34 valsartan-hydrochlorothiazide oral [Active]; Crestor oral [Active]; gabapentin oral ww [Active]; meloxicam oral [Active]; - PMHx: 18:34 Hypertensive disorder; Hypercholesterolemia; ww - PSHx: 18:34 bilateral hip replacement; colon resection; ww - Immunization history:: Adult Immunizations up to date. - Social history:: Smoking status: Patient reports the use of cigarette tobacco products, smokes two packs cigarettes per day. ROS: 18:51 Constitutional: Negative for fever, chills, and weight loss, Neck: Negative for injury, aj3 pain, and swelling, Cardiovascular: Negative for chest pain, palpitations, and edema, Respiratory: Negative for shortness of breath, cough, wheezing, and pleuritic chest pain, Skin: Negative for injury, rash, and discoloration, Neuro: Negative for syncope, headache, weakness, numbness, tingling, and seizure. 18:51 Back: Positive for radiated pain, of the lumbar area, left low back and right low back. 18:51 MS/extremity: Positive for decreased range of motion, pain, tenderness, of the Bilateral hips. 18:51 Neuro: Positive for tingling. Exam: 18:51 Constitutional: This is a well developed, well nourished patient who is awake, alert, aj3 and in no acute distress. Neck: Trachea midline, no thyromegaly or masses palpated, and no cervical lymphadenopathy. Supple, full range of motion without nuchal rigidity, or vertebral point tenderness. No Meningismus. Cardiovascular: Regular rate and rhythm with a normal S1 and S2. No gallops, murmurs, or rubs. Normal PMI, no JVD. No pulse deficits. Respiratory: Lungs have equal breath sounds bilaterally, clear to auscultation and percussion. No rales, rhonchi or wheezes noted. No increased work of breathing, no retractions or nasal flaring. Skin: Warm, dry with normal turgor. Normal color with no rashes, no lesions, and no evidence of cellulitis. Neuro: Awake and alert, GCS 15, oriented to person, place, time, and situation. Cranial nerves II-XII grossly intact. Motor strength 5/5 in all extremities. Sensory grossly intact. Cerebellar exam normal. Normal gait. Psych: Awake, alert, with orientation to person, place and time. Behavior, mood, and affect are within normal limits. 18:51 Back: pain, that is mild, of the lumbar area, left low back and right low back. 18:51 Musculoskeletal/extremity: ROM: limited active range of motion due to pain, Bilateral hips. Vital Signs: 18:32 BP 141 / 72; Pulse 76; Resp 18; Temp 98.9; Pulse Ox 98% ; Weight 72.57 kg; Height 5 ft. ww 6 in. (167.64 cm); Pain 6/10; 21:59 BP 139 / 77; Pulse 73; Resp 18; Pulse Ox 99% on R/A; Pain 2/10; ld1 18:32 Body Mass Index 25.82 (72.57 kg, 167.64 cm) ww MDM: 18:49 Patient medically screened. aj3 21:48 Data reviewed: vital signs, nurses notes, radiologic studies, plain films. Counseling: aj3 I had a detailed discussion with the patient and/or guardian regarding: the historical points, exam findings, and any diagnostic results supporting the discharge/admit diagnosis, radiology results, the need for outpatient follow up. ED course: X-ray was reassuring for no acute hip replacement changes. Patient's pain is likely related to sciatic issues. Patient was given pain medication which initially improved we will send home with Rx for analgesics. Discussed patient to follow-up with orthopedic to discuss physical therapy outpatient. Discharge instructions, follow-up, medications prescribed and ER return precautions discussed with patient who verbalized understanding.. 10/20 20:18 Order name: Hip Bilateral With Pelvis; Complete Time: 21:21 EDMS Administered Medications: 20:44 Drug: morphine 4 mg Route: IM; Site: right deltoid; ld1 21:30 Drug: [place] (HYDROcodone-acetaminophen) 10 mg-325 mg 1 tabs Route: PO; ld1 21:46 Follow up: Response: No adverse reaction ld1 21:30 Drug: predniSONE 40 mg Route: PO; ld1 21:46 Follow up: Response: No adverse reaction ld1 Disposition: 10/21 18:28 Co-signature as Attending Physician, Venu Gonzalez MD. rn Disposition Summary: 10/20/21 21:43 Discharge Ordered Location: Home aj3 Problem: new aj3 Symptoms: have improved aj3 Condition: Stable aj3 Diagnosis - Lumbago with sciatica aj3 - Pain in hip aj3 Followup: aj3 - With: Private Physician - When: 1 week - Reason: Recheck today's complaints, Re-evaluation by your physician Discharge Instructions: - Discharge Summary Sheet aj3 - Hip Pain aj3 - Sciatica, [id number] aj3 Forms: - Medication Reconciliation Form aj3 - Thank You Letter aj3 - Antibiotic Education aj3 - Prescription Opioid Use aj3 Prescriptions: - methocarbamol 500 mg Oral tablet - take 2 tablet by ORAL route 2 times per day for 3 days; 12 tablet; Refills: 0, aj3 Product Selection Permitted - Prednisone 20 mg Oral Tablet - take 2 tablets by ORAL route once daily for 5 days; 10 tablet; Refills: 0, aj3 Product Selection Permitted - Tylenol-Codeine #3 300 mg-30 mg Oral - take 1 tablet by ORAL route every 4-6 hours As needed; 15 tablet; Refills: 0, aj3 Product Selection Permitted Signatures: Dispatcher [employer] EDMS Venu Gonzalez MD MD rn Dibbern, Lauren, RN RN ld1 Cat Posey RN RN ww Gail Navarro NP SBA BUSINESS DEVELOPMENT OFFICER aj3
[2021-10-20] MEDS ORDERED: HYDROCODONE/APAP 10/325 TAB ONE (21:51)
[2021-10-20] MEDS ORDERED: predniSONE 20 MG TAB ONE (21:51)
[2021-10-20 22:32] VITALS: TEMP 98.9
[2021-10-20 22:36] VITALS: BP 139/77; O2SAT 99
== END 2021-10-20 22:00 | disposition home or self-care (01) ==
LOC: ER 17:55
DX: M54.40 Lumbago with sciatica, unspecified side (principal); M25.552 Pain in left hip; M25.551 Pain in right hip; I10 Essential (primary) hypertension; F17.210 Nicotine dependence, cigarettes, uncomplicated; E78.00 Pure hypercholesterolemia, unspecified; Z96.643 Presence of artificial hip joint, bilateral; Z91.048 Other nonmedicinal substance allergy status
CPT/HCPCS: 73521; 96372; 99284; J7512

== ENCOUNTER 2022-01-11 14:47 | Emergency (ER) | payer OTHER ==
--- OUTSIDE RECORDS SUMMARY | 2022-01-11 14:56 | XMS REPORT | Continuity of Care Document ---
:1955 Author Organization [facility] t Address [address] [place] [address] Support Name Relationship Address Phone MADY MIRAMONTES SP [address] [place] [address] MADY MIRAMONTES SP [address] [place] [address] NONE, OTHER OT [address] [phone] [place] [address] NONE, OTHER Unavailable [address] [phone] [place] [address] NONE, OTHER OT [phone] [place] [address] L Mady Miramontes Spouse [address] [phone] [place] [address] Care Team Providers Name Role Phone Desiree RAY, Alecia Primary Care Physician Ramon Lieberman Attending Clinician Unavailable Iggy London Attending Clinician Unavailable Scot Borges Attending Clinician Unavailable Alecia Cordova MD Attending Clinician Neli Riley MD Attending Clinician Rudy Chen MD Attending Clinician Sugar Hawk MA Attending Clinician Unavailable Larry Franco MD Attending Clinician Christel Jackson Attending Clinician Unavailable Wallace RAY, Anu Pena Attending Clinician Vani Garcia MA Attending Clinician Unavailable Fanny Gómez MD Attending Clinician Felipe FULLER, Rose Argueta Attending Clinician [phone] Anel Snow MA Attending Clinician Unavailable Gloria Cerda MA Attending Clinician Unavailable Harsha RAY, Neto Holbrook Attending Clinician [phone] Percy Nation MA Attending Clinician Unavailable Hipolito Mcleod MA Attending Clinician Unavailable Tamanna Burns Attending Clinician Unavailable Micah Atwood MD Attending Clinician Melita Caraballo MA Attending Clinician Unavailable TOBI JOYCE Attending Clinician Unavailable JOSE J DORSEY Attending Clinician Unavailable TOBI JOYCE Attending Clinician Unavailable MD TOBI JOYCE Attending Clinician Unavailable MADY PINEDA Attending Clinician Unavailable PATRICK FULLER Attending Clinician Unavailable ALLYSON FABIAN M.D. Attending Clinician Unavailable Dominic Ferreira Attending Clinician Unavailable VASCULAR, SE Attending Clinician Unavailable SHERIDAN LU D.O. Attending Clinician Unavailable Physician, No Primary or Family Admitting Clinician UnavailRamon Becerra Admitting Clinician Unavailable Iggy London Admitting Clinician Unavailable FANNY GÓMEZ Admitting Clinician Unavailable TOBI JOYCE Admitting Clinician Unavailable MD TOBI JOYCE Admitting Clinician Unavailable DENNYS ZABALA Admitting Clinician Unavailable Payers Payer Name Policy Type Policy Number Effective Date Expiration Date S ource Problems Condition Condition Condition Status Onset Resolution Last Treating Co mments Source Name Details Category Date Date Treatment Clinician Date Preoperati Preoperati Disease Active Overview : Methodi ve ve 11-[address] clearance clearance 00:00: g of this H ospita 00 note l might be different from the original. -She might go for back surgery -Referred to cardiolog y for preop clearance : heavy smoker / diabetic - I ordered Echocardi ogram to evaluate EF and cardiac function Fall Fall Disease Active Overview: Method i 5-[address] 00:00: g of this [facility]ospita 00 note l might be different from the original. Multifact orial - Lumbar disease with radiculop athy - Diabetic neuropath y -walking without using walker or cane-So far decided not to investiga te surgery- -S/P multiple falls( most recently tripping over the dog - fall while going down the stairs without assistanc e ) ; evaluated recently by neurosurg isabel: prep for surgery in progress Rib pain Rib pain Disease Active Overview: Me shetty on left on left 5-[address] side side 00:00: g of this Hospita 00 note l might be different from the original. She fell going down the stairs . She was not holding on due to feeling pain free post back injection .she feels pain in her left side. Plan XR ribs Celebrex Tramadol / gabapenti n She is to call her pain managemen t doctor for pain med managemen t Left hip Left hip Disease Active Overview: Me thodi pain pain 5-[address] 00:00: g of this Hospita 00 note l might be different from the original. S/p fall trying to go down the stairs without holding on since she felt pain free post most recent back steroid injection .She is worried about her hip replaceme nt and would like to be XR Plan -XR hip -She has a prescript ion for Celebrex that did not yet pick from the pharmacy / tramadol and gabapenti n -She is to call her pain managemen t doctor for further adjusteme nt of pain medicatio n Lumbar Lumbar Disease Active Overview: Method i stenosis stenosis - Formattin st with with 00:00: g of this Hospita neurogenic neurogenic 00 note l claudicati claudicati might be on on different from the original. -Chronic with persisten t pain and recent fall -Lengthy discussio n with pt about her trt options She is strongly advised to revisit [facility] to discuss trt options including surgery IF surgery indicated she is strongly advised to proceed consideri ng her progressi on to worsening symptoms and leg weakness and falls -Understa nds clearly the discussio n and risk of disabilty Chronic Chronic Disease Active Overview: Meth zuly radicular radicular - Formattin s t lumbar lumbar 00:00: g of this Hospita pain pain 00 note is l different from the original. Orthopedi c /pain managemen t / Neurosurg cristina [place].H/o laminecto my 27 years ago [facility] orth[facility] c H/o Injection in 2009 Worsening lumbar pain and bilateral leg weakness +numbness over the past year or so with intense pain on the Right SI joint :- failed a right SI steroid injection ( did better on the left ) -partial relief with gabapenti n to 400 mg TID / celebrex. -Not intereste d in surgery or Spinal cord stimulato r- patient is not intereste d at this time.-MRI showed right foraminal disc bulge at L4/5 with impingeme nt on the right L4. Chronic left hemilamin ectomy at L5/S1 displacem ent of left S1 nerve root - Using a cane with antalgic position and gailt abnormali ty : advised to reassess her options : scheduled to be seen 08/11/21-S /P multiple falls( most recently tripping over the dog - fall while going down the stairs without assistanc e ) 10/2021 Consulted with Neurosurg cristina : surgery prep in process : at this point she is in a wheelchai r and willing to proceed with surgery. Cardiac Cardiac Disease Active Overview: Meth zuly risk risk 4-[address] counseling counseling 00:00: g of this Hospita 00 note l might be different from the original. By cardiolog y Dr Deangelo Robles2016 normal stress myocardia l perfusion study have a low (< 1%) annual risk of cardiac or nonfatal myocardia l infarctio n.2 D echo:LV: LV size is normal. LV function is hyperdyna maranda. Overall wall motion is hyperdyna maranda. Estimated EF is >70%. Fecal Fecal Disease Active Overview: Method i soiling soiling 4- Formattin st due to due to 00:00: g of this Hospita fecal fecal 00 note l incontinen incontinen might be ce ce different from the original. > 10 years after the surgical correctio n of anal fissure-D aily accident -Evaluate d by [facility] by anorectal manometry : Negative digital exam findings: no laxity of anal sphincter (Good squeeze, no anismus), no gross blood in stool and no blood present -FiberCon tablets -complete ly resolved after stopping metformin H/O H/O Disease Active Overview: Method i hematuria hematuria 4- Formattin s t 2 to 2 to 00:00: g of this Hospita vaginal vaginal 00 note is l atrophy atrophy different from the original. Evaluated by [facility] Renal Ct scan: No renal stones. No acute abnormali ties. - There is evidence of postmenop ausal atrophic vaginitis with some urethral irritatio n due to low estrogen. - periureth ral Estrace cream to be applied nightly twice a week and washed off in the mornings. -Patient will return to clinic in 6 months for UA C&S and bladder scan postvoid residual. H/O H/O Disease Recurre Overview: Metho di umbilical umbilical nce 11-20 [address] t hernia hernia 00:00: g of this Hospita repair repair 00 note is l different from the original. Status-po st elective outpatien t mesh repair of large, reducible , cole-umbi lical incisiona l hernia 9 Pap smear, Pap smear, Disease Active Overview : [facility] [facility] 00 note l might be different from the original. By DIVYA patel Gastroesop Gastroesop Disease Active Overview : Methodi hageal hageal 11-[address] reflux reflux 00:00: g of this [facility]ospita disease disease 00 note l without without might be esophagiti esophagiti different s s from the original. H pylori negative - Controlle d with omeprazol e qam Long-term Long-term Disease Active Overview: [facility] [facility] [address] high-risk high-risk 00:00: [facility] this [facility] medication medication 00 note l ; celebrex ; celebrex might be for years for years different from the original. Followed by pain managemen t : Aware of risk of stroke and GI bleed , kidney disease including dialysis Osteoarthr Osteoarthr Disease Active 2018-05 M ethodi itis itis 14 st 00:00: Hospita 00 l Aftercare Aftercare Disease Active Met [facility]odi following following 11-03 right hip right hip 00:00: Hosp po joint joint 00 l replacemen replacemen t surgery t surgery Screening Screening Disease Active Overview: Methodi for colon for colon 10-27 Formatt[address] t cancer cancer 00:00: g of this Hospita 00 note l might be different from the original. H/o internal and external hemorrhoi ds H/o diverticu lar disease + diverticu litis 2015 2020 EGD / colonosco py in [facility] : no report found Postmenopa Postmenopa Disease Active Overview : Methodi usal usal 3-[address] atrophic atrophic 00:00: g of this Hos [facility]ose vaginitis vaginitis 00 note l might be different from the original. 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 Managed by psychiatr y H/o depressio n Complicat ed by loss of her daughter PAD PAD Disease Active 2017-05 Overview: Method i (periphera (periphera 2-[address] l artery l artery 00:00: g of this [facility] j[facility] disease) disease) 00 note l might be different from the original. Evaluated by Vascular surgery History of History of Disease Recurre 2017-05 Overvie w: Methodi TIA's 2014 TIA's 2014 nce 2-[address] 00:00: g of this Hospita 00 note l might be different from the original. 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 Dr Jony Alfaro/ albuterol : Advised to use her inhaler as she never do : lung exam b/l wheezing -Referred again to complete her lung CT scan [id number] : not completed :Heavy smoker for years understan ds risk including COPD and cancer Heavy Heavy Disease Recurre Overview: Metho di smoker smoker nce 2-[address] (more than (more than 00:00: g of this Hospita 20 20 00 note l cigarettes cigarettes might be per day) per day) different from the original. Evaluated by Pulm; dr Borges -Never completed her CT scan lung : referred to complete testing : aware of risk of lung cancer -Aware of risk of smoking on outcome of surgery : also aware of benefit of improving outcome if she stops smoking before her planned surgery Mixed Mixed Disease Recurre Overview: Metho di hyperlipid hyperlipid nce 12-[address] emia emia 00:00: g of this Hospita 00 note l might be different from the original. LDl at goal on crestor 40 mg + fenofibra te 145 last check 08/2021 H/O H/O Disease Active Methodi carotid carotid 12-16 st endarterec endarterec 00:00: Ho spita chloe 2014 chloe 2014 00 l Chronic Chronic Disease Active Overview: Meth zuly radicular radicular 12-16 Formatt[address] s t lumbar lumbar 00:00: g of this Hospita pain pain 00 note l might be different from the original. Evaluated by Rheumatol ogslime / pain managemen t / Sport medicine/ Orthopedi c On Chronic celebrex intake by prior PCP ; cannot function without it : aware of risk including stroke , kidney disease including dialysis , uncontrol led blood pressure - By Rheumatol gayla : Patient does not want surgery at this time.She has had some benefit with gabapenti n 300mg BID for sciatic/n erve pain. Will increase this to 300mg TID. She [place] to [place], she will find place for PT close to her home that her insurance company is ok with. She will message us and we will refer her"-surg cristina vs back stimulato r -SI : injection with good result on left - partial improveme nt on right -schedule d to be seen 08/11/2021 ABDOMINAL ABDOMINAL Condition Active 2014-01-11 [facility] PAIN, LEFT PAIN, LEFT 11-02 13:35:56 l LOWER LOWER 00:00: [place] QUADRANT QUADRANT 00 Active 11/02/2013 Condition 01/11/2014 [facility] BLEEDING, BLEEDING, Condition Active 2014-01-11 [facility] RECTAL/JORGE RECTAL/JORGE 11-02 13:35:56 l L L Active 00:00: [place] 11/02/2013 00 Condition 01/11/2014 [facility] Group CONSTIPATI CONSTIPAT Condition Active 2014-01-11 [facility] ON, OTHER ION, OTHER 11-02 13:35:56 l Active 00:00: [place] 11/02/2013 00 Condition 01/11/2014 [facility] Group COLOVAGINA COLOVAGIN Condition Active 2014-01-11 [facility] L/RECTOVAG AL/RECTOVA 11-02 13:35:56 l INAL GINAL 00:00: [place] FISTULA FISTULA 00 Active 11/02/2013 Condition 01/11/2014 [facility] Group DIVERTICUL DIVERTICU Condition Active 2014-01-11 [facility] ITIS LITIS 11-02 13:35:56 l Active 00:00: [place] 11/02/2013 00 Condition 01/11/2014 Medical Group ATHEROSCLE Condition Active 2014-01-11 [facility] ROSIS OF ATHEROSCLE 10-31 13:35:56 l OTHER ROSIS OF 00:00: [place] SPECIFIED OTHER 00 ARTERIES SPECIFIED ARTERIES Active 10/31/2013 Condition 01/11/2014 [facility] Group DIABETES DIABETES Condition Active 2014-01-11 [facility] MELLITUS MELLITUS 10-31 13:35:56 l WITH WITH 00:00: [place] UNSPECIFIE UNSPECIFIE 00 D D COMPLICATI COMPLICATI ON, TYPE ON, TYPE II OR II OR UNSPECIFIE UNSPECIFIE D TYPE, D TYPE, NOT STATED NOT STATED UNCONTROLL UNCONTROLL ED ED Active 10/31/2013 Condition 01/11/2014 [facility] Group HTN HTN Disease Active Overview: Method i (hypertens (hypertens Formattin st ion), ion), g of this Hospita benign benign note l might be different from the original. 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 Memor ia depressive depressive 02:46:10 l disorder, disorder, Herm pernell Recurrent Recurrent episode, episode, Moderate Moderate Active Problem 11/14/2020 [facility] History of History of Problem Resolve UT [...] Resolve [place] stroke stroke d Physici ans Amaurosis Amaurosis Problem Active [place] fugax fugax [...] Tendinosis Problem Active U T [facility] Unspecifie Unspecifi Problem Active 2021-07-29 Memoria d anxiety ed anxiety 02:45:42 l disorder disorder Shmuel n Active Problem 07/29/2021 [facility] Insomnia Insomnia Problem Active 2021-07-29 Memoria due to due to 02:45:42 l other other [place] mental mental disorder disorder Active Problem 07/29/2021 [facility] Major Major Problem Active 2021-07-29 Ovidio ayala depressive depressive 02:45:42 l disorder, disorder, Herm pernell Recurrent Recurrent episode, episode, Mild Mild Active Problem 07/29/2021 [facility] Allergies, Adverse Reactions, Alerts Allergy Allergy Status Severity Reaction(s) Onset Inactive Treating Comm ents Source Name Type Date Date Clinician Beta-Blo DA Active SV DEPRESSION [facility] ckers 8-10 Clear (Beta-Ad 00:00: Arteaga renergic 00 [facility] Iodinate DA Active SV HIVES [facility] d 8-10 Clear Contrast 00:00: Arteaga Media 00 [facility] Sectral Sectral Active Info Not Memori a Available 3-14 l 00:00: Sectral Sectral Active Info Not Memori a Available 9-20 l 00:00: Sectral Sectral Active Info Not Memori a Available 8-23 l 00:00: Acebutol Propensi Active Altered 2018-05 Metho di ol ty to Mental 2-30 st adverse Status 00:00: Hospita reaction 00 l s to drug simvasta DA Active U [facility] tin 6-27 [place] 00:00: e 00 [facility] simvasta DA Active U [place] [facility] tin 6-27 Clear 00:00: Arteaga 00 [facility] Iodine Propensi Active Shortness Of IV Iodine Methodi ty to Breath 8-02 st adverse 00:00: Hospita reaction 00 l s to drug IODINE IODINE Active Memoria 6-17 l 00:00: Beta-Blo Propensi Active Cough 2009-05 Method i ckers ty to 2-03 st (Beta-Ad adverse 00:00: Hospita renergic reaction 00 l Blocking s to Agts) drug Beta-Blo DA Active SV 2009-05 [facility] ckers 2-03 [place] (Beta-Ad 00:00: e renergic 00 [facility] simvasta DA Active U 2009-05 [facility] tin 2-03 Clear 00:00: Arteaga 00 [facility] Beta-Blo DA Active SV DEPRESSION 2009-05 [facility] ckers 2-03 Clear (Beta-Ad 00:00: Arteaga renergic 00 [facility] Iodinate DA Active SV 2009-05 [facility] d 2-01 [place] Contrast 00:00: e - Oral 00 [facility] Iodinate DA Active SV HIVES 2009-05 [facility] d 2-01 Clear Contrast 00:00: Arteaga Media 00 [facility] Iodinate drug Active [place] d allergy Physici Contrast ans Media Family History Family Member Diagnosis Comments Start Stop Source Date Date [facility] Natural mother Alcohol abuse [facility] Natural mother Diabetes [facility] Natural mother Hypertension [facility] Natural mother Ulcers [facility] Paternal [facility] Paternal [facility] Natural sister Diabetes [facility] Natural sister Stroke [facility] Natural brother Diabetes [facility] Natural father Asthma [facility] Natural father Diabetes [facility] Natural father Heart disease [facility] Natural father Hypertension [facility] Unknown Family Family history of Heart Family [facility] Member Disease History Unknown Family FHx: diabetes mellitus Family [facility] Member History Father Family history of asthma [facility] Father Family history of [facility] essential hypertension Father Family history of [facility] hypercholesterolemia Social History Social Habit Start Date Stop Date Quantity Comments Source History of tobacco Heavy tobacco [facility] use smoker Hospital Alcohol intake 2021-11-11 2021-11-11 Ex-drinker [facility] 00:00:00 00:00:00 (finding) Hospital Cigarettes smoked 2021-04-24 2021-04-24 [facility] current (pack per 00:00:00 00:00:00 Hospita l day) - Reported Cigarette 2021-04-24 2021-04-24 [facility] pack-years 00:00:00 00:00:00 Hospital Tobacco use and 2021-04-24 2021-04-24 Smokeless tobacco [facility] exposure 00:00:00 00:00:00 non-user Hospital Sex Assigned At [birth year] F [facility] 00:00:00 00:00:00 Hospital Smoking Status Start Date Stop Date Source Current every day smoker [facility] Heavy tobacco smoker 2021-04-24 00:00:00 [facility] Medications Ordered Filled Start Stop Current Ordering Indication Dosage Frequency Signature Comments Components Source Medication Medication Date Date Medication? Clinician (SIG) Name Name fenofibrate Yes [id number] TAKE 1 Methodi (TRICOR) 8-[address] 145 MG 00:00: MOUTH Hospita tablet 00 EVERY DAY l amlodipine- Yes TAKE 1 Meth zuly valsartan 8-[address] (EXFORGE) 00:00: MOUTH Hospita 10-320 mg 00 EVERY DAY l per tablet IN THE EVENING meloxicam Yes TAKE 1 Method i (MOBIC) 15 8-[address] mg tablet 00:00: MOUTH Hospita 00 EVERY DAY l hydroCHLORO Yes [id number] TAKE 1 [facility]i thiazide 8-[address] (HYDRODIURI 00:00: MOUTH Hospi ta L) 25 MG 00 EVERY DAY l tablet IN THE MORNING SITagliptin Yes TAKE 1 Meth zuly (Januvia) 01-[address] 100 MG 00:00: MOUTH Hospita tablet 00 EVERY DAY. l STOP METFORMIN fenofibrate 2021- No [id number] TAKE 1 [facility] (TRICOR) 8-15 01-[address] 145 MG 00:00: 00:00 MOUTH Hospita tablet 00 :00 EVERY DAY l aspirin 2021- No 81mg QD Take 81 mg Met hodi (ECOTRIN) 11-[address] 81 MG 22:34: 00:00 daily. Hospita enteric 29 :00 l coated tablet busPIRone Yes 5mg Q.[id number] Take 5 mg Methodi (BUSPAR) 5 11-10 [id number] [address] mouth [address] MG tablet 13:48: 3D (three) Hospi ta 47 times a l day. traMADoL 2021- [place] [id number] 50mg Q8H Take 1 Metho di (ULTRAM) 50 10-31 tablet (50 s t mg tablet 00:00: 04:59 mg total) Ho spita 00 :00 by mouth l every 8 (eight) hours as needed for severe pain for up to 10 days .acute pain. diazePAM 2021- No 5mg QD Take 1 Method i (VALIUM) 5 10-27 tablet (5 st MG tablet 00:00: 04:59 mg total) Ho spita 00 :00 by mouth l nightly as needed for muscle spasms for up to 10 days. acetaminoph Yes 1{tbl} Take 1 Me thodi en-codeine 10-[address] (TYLENOL 00:00: mouth. Hospita WITH 00 l CODEINE #3) 300-30 mg per tablet methocarbam 2021- No TAKE 2 [facility] oL 10-21- TABLETS BY st (ROBAXIN) 00:00: 00:00 MOUTH Hospit a 500 MG 00 :00 TWICE A l tablet DAY FOR 3 DAYS amlodipine- 2021- No TAKE 1 Met [facility]odi valsartan 10-[address] (EXFORGE) 00:00: 00:00 MOUTH Hospit a 10-320 mg 00 :00 EVERY DAY l per tablet IN THE EVENING traMADoL Yes 50mg Q8H Take 50 mg Met hodi (ULTRAM) [address] mg tablet 00:00: every 8 Hospi ta 00 (eight) l hours. diclofenac 2021-0 2021- No 75mg Q.5D Take 75 mg [facility] (VOLTAREN) 09-20 06-[address] 75 MG EC 00:00: 00:00 (two) Hospita tablet 00 :00 times a l day. gabapentin Yes 600mg Q.[id number] Take 600 [facility] (NEURONTIN) 09-14 [id number] mg by s t 300 mg 00:00: 3D mouth 3 Hospita capsule 00 (three) l times a day. fenofibrate 2021- No [id number] TAKE 1 [facility] (TRICOR) 08-11 08-[address] 145 MG 00:00: 00:00 MOUTH Hospita tablet 00 :00 EVERY DAY l amlodipine- 2021- No TAKE 1 Met [facility]odi valsartan 08-11 05-[address] (EXFORGE) 00:00: 00:00 MOUTH Hospit a 10-320 mg 00 :00 EVERY DAY l per tablet IN THE EVENING gabapentin 2021-2021- No 600mg Q.[id number] Take 2 [facility] (NEURONTIN) 08-11 04-[id number] 300 mg 00:00: 04:59 3D (600 mg Hospita capsule 00 :00 total) by l mouth 3 (three) times a day for 30 days. hydrALAZINE Yes [id number] TAKE 1 [facility] (APRESOLINE 3-[address] ) 25 MG 00:00: MOUTH Hospita tablet 00 EVERY l MORNING AND TAKE 1 TABLET EVERY EVENING hydroCHLORO 2021-2021- No [id number] TAKE 1 [facility] thiazide 3-25 -[address] (HYDRODIURI 00:00: 00:00 MOUTH Hosp po L) 25 MG 00 :00 EVERY DAY l tablet IN THE MORNING Januvia 100 2021-2021- No TAKE 1 Met [facility]odi mg tablet -08 01- TABLET BY st 00:00: 00:00 MOUTH Hospita 00 :00 EVERY DAY. l STOP METFORMIN gabapentin 0 2021- No TAKE 1 Meth zuly (NEURONTIN) 08-05 CAPSULE BY s t 300 mg 00:00: 00:00 MOUTH Hospita capsule 00 :00 THREE l TIMES A DAY BuSpar Yes RICARDO 1 tablet Memori a 3-15 KEYES l 02:45: [place] 42 Rosuvastati Yes RICARDO 1 tablet M emoria n Calcium 3-15 KEYES l 02:45: [place] 42 Hydrochloro 0 Yes RICARDO 2 tablet M emoria thiazide 3-15 KEYES l 02:45: [place] 42 Fenofibrate Yes RICARDO 1 tablet M emoria 3-15 KEYES l 02:45: [place] 42 Omeprazole Yes RICARDO 1 capsule M emoria 3-15 KEYES l 02:45: [place] 42 Januvia Yes RICARDO TAKE 1 Memoria 3-15 KEYES TABLET BY l 02:45: MOUTH [place] 42 EVERY DAY. STOP METFORMIN Ondansetron Yes RICARDO 1 tab Ovidio ayala 3-15 KEYES l 02:45: [place] 42 Metformin 0 Yes RICARDO 1 tablet Mem oria HCl 3-15 KEYES l 02:45: [place] 42 Aspirin 0 Yes RICARDO 1 tablet Memor ia 3-15 KEYES l 02:45: [place] 42 Melatonin 0 Yes RICARDO 2 tablets Me moria 3-15 KEYES at bedtime l 02:45: as needed [place] 42 Fluoxetine 0 Yes RICARDO 2 capsules Memoria HCl 3-15 KEYES l 02:45: [place] 42 Meloxicam 0 Yes RICARDO 1 tablet Mem oria 3-15 KEYES l 02:45: [place] 42 Gabapentin 0 Yes RICARDO 1 capsule M emoria 3-15 KEYES l 02:45: [place] 42 fenofibrate 2021-0 2021- No [id number] TAKE 1 Method[facility] (TRICOR) 07-[address] 145 MG 00:00: 00:00 MOUTH [facility]ospita tablet 00 :00 EVERY DAY l bupivacaine Yes [id number] 2mL Me thodi HCl 2-25 st (MARCAINE) 20:00: Hospita 0.25 % (2.5 00 l mg/mL) injection 2 mL lidocaine Yes [id number] 2mL Meth zuly (XYLOCAINE) 2-25 st 10 mg/mL (1 20:00: Hospit a %) 00 l injection 2 mL triamcinolo Yes [id number] 40mg Me thodi ne 2-[address] acetonide 20:00: Hospita (KENALOG-40 00 l ) injection 40 mg amlodipine- 2021- No TAKE 1 Met hodi valsartan 07-[address] (EXFORGE) 00:00: 00:00 MOUTH IN Hos jose 10-320 mg 00 :00 THE l per tablet EVENING gabapentin 2021- No 100mg Q.[id number] Take 1 [facility] (Neurontin) 07-02-[id number] 100 mg 00:00: 04:59 3D (100 mg Hospita capsule 00 :00 total) by l mouth 3 (three) times a day for 30 days. Take with the 300 mg tablet Three times a day rosuvastati Yes [id number] TAKE 1 Method[facility] n (CRESTOR) 2- TABLET BY st 40 MG 00:00: MOUTH [facility]ospita tablet 00 EVERY DAY l meloxicam 2021- No 15mg QD TAKE 1 Metho di (MOBIC) 15 06-19 TABLET (15 st mg tablet 00:00: 00:00 MG TOTAL) Ho spita 00 :00 BY MOUTH l DAILY FOR 180 DAYS. hydroCHLORO 2021- No [id number] TAKE 1 [facility] thiazide 2-07 17-[address] (HYDRODIURI 00:00: 00:00 MOUTH IN H ospita L) 25 MG 00 :00 THE l tablet MORNING gabapentin 2021- No TAKE 1 Meth zuly (NEURONTIN) 2- CAPSULE BY s t 300 mg 00:00: 00:00 MOUTH Hospita capsule 00 :00 THREE l TIMES A DAY rosuvastati 2020-05- No [id number] TAKE 1 Methodi n (CRESTOR) 07-[address] 40 MG 00:00: 00:00 MOUTH Hospita tablet 00 :00 EVERY DAY l hydrALAZINE 2020-05- No [id number] TAKE 1 [facility] (APRESOLINE 06-[address] ) 25 MG 00:00: 00:00 MOUTH Hospita tablet 00 :00 EVERY l MORNING AND TAKE 1 TABLET EVERY EVENING fenofibrate 2020-05- No [id number] TAKE 1 [facility] (TRICOR) 06-[address] 145 MG 00:00: 00:00 MOUTH Hospita tablet 00 :00 EVERY DAY l gabapentin 2020-05- No TAKE 1 Meth zuly (NEURONTIN) 06-[address] 300 mg 00:00: 00:00 MOUTH Hospita capsule 00 :00 Three l times per day Celecoxib 2020-05 Yes RICARDO 1 capsule Me moria 16 KEYES l 03:45: [place] 45 Prozac 2020-05 Yes RICARDO 2 capsules Ovidio ayala 06-01 KEYES l 03:45: [place] 45 Fluoxetine 2020-05 Yes RICARDO 1 capsule M emoria HCl 16 KEYES l 03:45: [place] 45 hyoscyamine 2020-05 Yes Method i (LEVSIN) 0 st 0.125 mg 00:00: Hospita tablet 00 l Januvia 100 2020-05- No TAKE 1 Met hodi mg tablet 08-[address] 00:00: 00:00 MOUTH Hospita 00 :00 EVERY DAY. l STOP METFORMIN rosuvastati 2020- No [id number] TAKE 1 Method[facility] n (CRESTOR) 02-[address] 40 MG 00:00: 00:00 MOUTH Hospita tablet 00 :00 EVERY DAY l Rosuvastati Yes RICARDO 1 tablet M emoria n Calcium 02-04 KEYES l 02:46: [place] 17 Fenofibrate Yes RICARDO 1 tablet M emoria - KEYES l 02:46: [place] 17 Celecoxib Yes RICARDO 1 capsule Me moria - KEYES l 02:46: [place] 17 Hydrochloro 2021-0 Yes RICARDO 2 tablet M emoria thiazide [...] 02:46: MOUTH [place] EVERY DAY. STOP METFORMIN Ondansetron Yes RICARDO 1 tab Ovidio ayala 9-21 KEYES l 02:46: [place] Prozac 0 Yes RICARDO 2 capsules Ovidio ayala 9-21 KEYES l 02:46: [place] Benavides BuSpar Yes RICARDO 1 tablet Memori a [...] a 9-21 KEYES l 02:46: [place] Benavides Rosuvastati 0 Yes RICARDO 1 tablet M emoria n Calcium 9-21 KEYES l 02:46: [place] Celecoxib 0 Yes RICARDO 1 capsule Me moria 9-21 KEYES l 02:46: [place] Benavides Hydrochloro 0 Yes RICARDO 2 tablet M emoria thiazide 9-21 KEYES l 02:46: [place] Benavides Fenofibrate 0 Yes RICARDO 1 tablet M emoria 9-21 KEYES l 02:46: [place] Benavides Omeprazole 0 Yes RICARDO 1 capsule M emoria 9-21 KEYES l 02:46: [place] Benavides Januvia Yes RICARDO TAKE 1 Memoria -21 KEYES TABLET BY l 02:46: MOUTH [place] 17 EVERY DAY. STOP METFORMIN Ondansetron Yes RICARDO 1 tab Ovidio ayala -21 KEYES l 02:46: [place] Metformin Yes RICARDO 1 tablet Mem oria HCl 02-04 KEYES l 02:46: [place] Prozac Yes RICARDO 2 capsules Ovidio ayala - KEYES l 02:46: [place] 17 Aspirin Yes RICARDO 1 tablet Memor ia 02-04 KEYES l 02:46: [place] 17 Melatonin Yes RICARDO 2 tablets Me moria 02-04 KEYES at bedtime l 02:46: as needed [place] Fluoxetine Yes RICARDO 1 capsule M emoria HCl -21 KEYES l 02:46: [place] Fluoxetine Yes RICARDO 1 capsule M emoria HCl 02-04 KEYES l 02:46: fenofibrate 2020- No [id number] TAKE 1 [facility] (TRICOR) 01-[address] 145 MG 00:00: 00:00 MOUTH Hospita tablet 00 :00 EVERY DAY l meloxicam 2021- No 15mg QD Take 1 Metho di (MOBIC) 15 01-14 tablet (15 st mg tablet 00:00: 00:00 mg total) Ho spita 00 :00 by mouth l daily for 180 days. gabapentin 2020- No Take 1 Meth zuly (NEURONTIN) 01-[address] 300 mg 00:00: 21:49 night Hospita capsule 00 :02 after 2 l weeks can take 1 tablet in morning and 1 at night hydroCHLORO 2021- No [id number] 25mg QD Take 1 [facility] thiazide 01-13 tablet (25 st (HYDRODIURI 00:00: 00:00 mg total) Hospita L) 25 MG 00 :00 by mouth l tablet every morning. amlodipine- 2020- No [id number] 1{tbl} QD Take 1 [facility] valsartan 8-30 12-[address] [facility] 00:00: 00:00 mouth Hospit a 10-320 mg 00 :00 every l per tablet evening. Celecoxib Yes RICARDO 1 capsule Me moria [...] emoria HCl 8-24 KEYES l 02:46: [place] hydroCHLORO 2020- No [id number] TAKE 1 [facility] thiazide 8-24 08-[address] (HYDRODIURI 00:00: 00:00 MOUTH Hosp po L) 25 MG 00 :00 EVERY l tablet MORNING amlodipine- 2020- No [id number] TAKE 1 [facility] valsartan 8-24 08-[address] (EXFORGE) 00:00: 00:00 MOUTH Hospit a 10-320 mg 00 :00 EVERY l per tablet EVENING hydrALAZINE 2020- No [id number] 1 tab [facility] (APRESOLINE 12-18 11-[address] ) 25 MG 00:00: 00:00 and 1 tab Hosp po tablet 00 :00 in the l evening albuterol 2020- No [id number] 2{puff} Q6H INHALE 2 [facility] (PROAIR 12-[address] HFA) 90 00:00: 04:59 EVERY 6 Hospit a mcg/actuati 00 :00 (SIX) l on inhaler HOURS NEEDED FOR WHEEZING ( NEEDED) FOR UP TO 30 DAYS. Fluoxetine Yes RICARDO 1 capsule M emoria HCl 7-27 KEYES l 00:00: Fluoxetine Yes RICARDO 1 capsule M emoria HCl 7-27 KEYES l 00:00: Fluoxetine Yes RICARDO 1 capsule M emoria HCl 7-27 KEYES l 00:00: Fluoxetine Yes RICARDO 1 capsule M emoria HCl 7-27 KEYES l 00:00: Fluoxetine Yes RICARDO 1 capsule M emoria HCl 7-27 KEYES l 00:00: Fluoxetine Yes RICARDO 1 capsule M emoria HCl 7-27 KEYES l 00:00: Fluoxetine Yes RICARDO 1 capsule M emoria HCl 7-27 KEYES l 00:00: Fluoxetine Yes RICARDO 1 capsule M emoria HCl 7-27 KYEES l 00:00: Fluoxetine Yes RICARDO 1 capsule M emoria HCl 7-27 KEYES l 00:00: Fluoxetine Yes RICARDO 1 capsule M emoria HCl 7-27 KEYES l 00:00: rosuvastati 2020- No [id number] TAKE 1 [facility] n (CRESTOR) 11-[address] 40 MG 00:00: 00:00 MOUTH Hospita tablet 00 :00 EVERY DAY l fenofibrate 2020- No [id number] TAKE 1 [facility] (TRICOR) 10-[address] 145 MG 00:00: 00:00 MOUTH Hospita tablet 00 :00 EVERY DAY l Wellbutrin 0 Yes Nilda 1 tablet M emoria SR 4-16 Walker in the l 02:49: morning [place] Wellbutrin 0 Yes Nilda 1 tablet M emoria SR 4-16 Walker in the l 02:49: morning [place] Wellbutrin 0 Yes Nilda 1 tablet M emoria SR 4-16 Walker in the l 02:49: morning [place] Wellbutrin 0 Yes Nilda 1 tablet M emoria SR 4-16 Walker in the l 02:49: morning [place] Wellbutrin 0 Yes Nilda 1 tablet M emoria SR 4-16 Walker in the l 02:49: morning [place] 27 SITagliptin 0 2020- No 100mg QD Take 1 Me thodi (Januvia) 08-[address] 100 MG 00:00: 00:00 (100 mg Hospita tablet 00 :00 total) by l mouth daily. Prozac 0 Yes Sandoval 4 capsule Memori a 3-26 Lidasan l 02:47: Prozac 0 Yes Sandoval 4 capsule Memori a 3-26 Lidasan l 02:47: Prozac 2020-0 Yes Sandoval 4 capsule Memori a 3-26 Lidasan l 02:47: Prozac 2020-0 Yes Sandoval 4 capsule Memori a 3-26 Lidasan l 02:47: Prozac 2020-0 Yes Sandoval 4 capsule Memori a 3-26 Lidasan l 02:47: polycarboph 0 Yes 1250mg Q.[id number] Take 2 Methodi il 2-[id number] (FIBERCON) 00:00: 3D (1,250 mg Ho spita 625 mg 00 total) by l tablet mouth 3 (three) times a day. Omeprazole Yes Veronique 1 capsule Memoria 01-21 Giles l 02:45: [place] 04 Remeron 2019-0 Yes Veronique 1 tablet Mem oria 01-21 Giles at bedtime l 02:45: [place] Clopidogrel 2020-0 Yes Veronique 1 tablet Memoria Bisulfate 9-07 Giles l 02:45: [place] Omeprazole 2020-0 Yes Veronique 1 capsule Memoria 9-07 Giles l 02:45: [place] Remeron 2020-0 Yes Veronique 1 tablet Mem oria 9-07 Giles at bedtime l 02:45: [place] Clopidogrel 2020-0 Yes Veronique 1 tablet Memoria Bisulfate 9-07 Giles l 02:45: [place] Omeprazole 2020-0 Yes Veronique 1 capsule Memoria 9-07 Giles l 02:45: [place] Remeron 2020-0 Yes Veronique 1 tablet Mem oria 9-07 Giles at bedtime l 02:45: [place] Clopidogrel 2020-0 Yes Veronique 1 tablet Memoria Bisulfate 9-07 Giles l 02:45: [place] Omeprazole 2020-0 Yes Veronique 1 capsule Memoria 9-07 Giles l 02:45: [place] Remeron 2020-0 Yes Veronique 1 tablet Mem oria 9-07 Giles at bedtime l 02:45: [place] Clopidogrel 2020-0 Yes Veronique 1 tablet Memoria Bisulfate 9-07 Giles l 02:45: [place] Omeprazole 2020-0 Yes Veronique 1 capsule Memoria 9-07 Giles l 02:45: [place] Remeron 2020-0 Yes Veronique 1 tablet Mem oria 9-07 Giles at bedtime l 02:45: [place] Clopidogrel 2020-0 Yes Veronique 1 tablet Memoria Bisulfate 9-07 Giles l 02:45: [place] pantoprazol 2018-05 Yes 40mg QD Take 40 mg Methodi e 0-[address] (PROTONIX) 00:00: daily. Hospi ta 40 MG EC 00 l tablet fluoxetine 2018-05 Yes 80mg QD Take 80 mg M ethodi HCl 0-[address] (FLUOXETINE 00:00: daily. Hosp po ORAL) 00 l traMADol traMADol 2015-05 Yes CHRISTOPHE-JOSH TAKE 1 TO UT HCl - 50 MG HCl - 50 MG 2-05 YEH D.O. 2 TABLETS [facility] Oral Tablet Oral Tablet 00:00: EVERY 6 ans 00 HOURS NEEDED FOR PAIN. Cyclobenzap Cyclobenzap 2015- Yes CHRISTOPHE-JOSH TAKE 1 UT rine HCl - rine HCl - 2-05 YEH D.O. TABLET 3 [facility] 10 MG Oral 10 MG Oral 00:00: TIMES ans Tablet Tablet 00 DAILY NEEDED. FLAGYL TAB 2014-0 No 1 tablet Mem oria 500MG 8-08 twice l 00:00: daily X 7 days FLAGYL TAB 2013-0 No 1 tablet Mem oria 500MG 8-08 twice l 00:00: daily X 7 days ASPIRIN EC 2013-0 Yes Memoria LOW DOSE 81 6-17 l MG TBEC 00:00: ESCITALOPRA 2013-0 Yes Memori a M OXALATE 6-17 l 20 MG TABS 00:00: METFORMIN 2013-0 Yes Memoria HCL 500 MG 6-17 l TABS 00:00: FENOFIBRATE 2013-0 Yes Memori a 145 MG TABS 6-17 l 00:00: CELEBREX 2013-0 Yes Memoria 200 MG CAPS 6-17 l 00:00: ESCITALOPRA 2014-0 Yes Memori a M OXALATE 6-17 l 20 MG TABS 00:00: METFORMIN 2014-0 Yes Memoria HCL 500 MG 6-17 l TABS 00:00: FENOFIBRATE 2013-0 Yes Memori a 145 MG TABS 6-17 l 00:00: CELEBREX 2014-0 Yes Memoria 200 MG CAPS 6-17 l 00:00: CELEBREX 2014-0 Yes Memoria 200 MG CAPS 6-17 l 00:00: ASPIRIN EC 2014-0 Yes Memoria LOW DOSE 81 6-17 l MG TBEC 00:00: ESCITALOPRA 2014-0 Yes Memori a M OXALATE 6-17 l 20 MG TABS 00:00: METFORMIN 2013-0 Yes Memoria HCL 500 MG 6-17 l TABS 00:00: FENOFIBRATE 2013-0 Yes Memori a 145 MG TABS 6-17 l 00:00: CELEBREX 2013-0 Yes Memoria 200 MG CAPS 6-17 l 00:00: ESCITALOPRA Yes Memori a M OXALATE 6-17 l 20 MG TABS 00:: METFORMIN Yes Memoria HCL 500 MG 6-17 l TABS 00:: FENOFIBRATE Yes Memori a 145 MG TABS 6-17 l 00:00: CELEBREX Yes Memoria 200 MG CAPS 6-17 l 00:00: CELEBREX Yes Memoria 200 MG CAPS 6-17 l [...] Valsartan[place] [id number] DIRECTED. MG Oral MG Oral Tablet Tablet [...] CeleBREX Yes [place] CAPS CAPS Physici ans Immunizations Ordered Immunization Filled Immunization Date Status Commen ts Source Name Name [facility] [id number] MRNA 2021-11-10 Completed Met [facility]ist VACCINATION 00:00:00 [facility] COVID19 MRNA 2021-05-07 Completed Met [facility]ist VACCINATION 00:00:00 [facility] FLUZONE HIGH-DOSE PF 2021-04-01 Completed Meth odist 00:00:00 [facility] COVID19 MRNA 2020-08-09 Completed Met [facility]ist VACCINATION 00:00:00 [facility] COVID-19 MRNA 2020-07-15 Completed Met hodist VACCINATION 00:00:00 [facility] COVID-19 MRNA 2020-07-08 Completed Met hodist VACCINATION 00:00:00 [facility] FLUZONE HIGH-DOSE PF 2020-03-02 Completed Meth odist 00:00:00 [facility] Pneumococcal 2018-10-27 Completed [facility] Conjugate 13-Valent 00:00:00 Hospi becki Pneumococcal 2012-05-17 Completed [facility] Polysaccharide 00:00:00 Hospital Tdap 2012-05-17 Completed [facility] 00:00:00 [facility] Vital Signs Vital Name Observation Time Observation Value Comments Source Systolic blood 2021-11-10 18:44:00 132 mm[Hg] [facility] pressure Diastolic blood 2021-11-10 18:44:00 78 mm[Hg] [facility] pressure Heart rate 2021-11-10 18:44:00 69 /min [facility] Body temperature 2021-11-10 18:44:00 36.67 Amy [facility] Body height 2021-11-10 18:44:00 167.6 cm [facility] Body weight 2021-11-10 18:44:00 69.4 kg [facility] BMI 2021-11-10 18:44:00 24.69 kg/m2 [facility] Oxygen saturation in 2021-11-10 18:44:00 98 /min [facility] Arterial blood by Pulse oximetry Respiratory rate 2021-10-27 21:18:00 18 /min [facility] Weight 2020-07-22 21:45:00 [facility] [place] Weight 2020-06-24 19:30:00 [facility] [place] Weight 2020-05-27 21:45:00 [facility] [place] Weight 2020-04-24 21:45:00 [facility] [place] Weight 2020-03-28 22:15:00 [facility] [place] Weight 2020-02-29 20:15:00 [facility] [place] Weight 2020-02-15 19:30:00 [facility] [place] Weight 2019-05-15 16:15:00 [facility] [place] Height 2019-05-15 16:15:00 [facility] [place] Heart Rate 2019-05-15 16:15:00 [facility] [place] Diastolic (mm Hg) 2019-05-15 16:15:00 Mem orial [place] Systolic (mm Hg) 2019-05-15 16:15:00 Ovidio rial [place] Weight 2014-01-11 18:35:56 [facility] [place] Temperature Oral (F) 2014-01-11 18:35:56 98.7 F [facility] [place] Heart Rate 2014-01-11 18:35:56 [facility] [place] Systolic (mm Hg) 2014-01-11 18:35:56 Ovidio rial [place] Diastolic (mm Hg) 2014-01-11 18:35:56 Mem orial [place] Weight 2013-12-29 20:27:02 [facility] [place] Temperature Oral (F) 2013-12-29 20:27:02 99.0 F [facility] [place] Heart Rate 2013-12-29 20:27:02 [facility] [place] Systolic (mm Hg) 2013-12-29 20:27:02 Ovidio rial [place] Diastolic (mm Hg) 2013-12-29 20:27:02 Mem orial [place] Weight 2013-12-22 18:42:34 [facility] [place] Temperature Oral (F) 2013-12-22 18:42:34 98.6 F [facility] [place] Heart Rate 2013-12-22 18:42:34 [facility] [place] Systolic (mm Hg) 2013-12-22 18:42:34 Ovidio rial [place] Diastolic (mm Hg) 2013-12-22 18:42:34 Mem orial [place] Weight 2013-12-14 14:20:08 [facility] [place] Temperature Oral (F) 2013-12-14 14:20:08 98.6 F [facility] [place] Heart Rate 2013-12-14 14:20:08 [facility] [place] Systolic (mm Hg) 2013-12-14 14:20:08 Ovidio rial [place] Diastolic (mm Hg) 2013-12-14 14:20:08 Mem orial [place] Weight 2013-11-28 18:19:41 [facility] [place] Temperature Oral (F) 2013-11-28 18:19:41 98.5 F [facility] [place] Heart Rate 2013-11-28 18:19:41 [facility] [place] Systolic (mm Hg) 2013-11-28 18:19:41 Ovidio rial [place] Diastolic (mm Hg) 2013-11-28 18:19:41 Mem orial [place] Height 2013-10-31 19:53:28 [facility] [place] Weight 2013-10-31 19:53:28 [facility] [place] Temperature Oral (F) 2013-10-31 19:53:28 98.7 F [facility] [place] Heart Rate 2013-10-31 19:53:28 [facility] [place] Systolic (mm Hg) 2013-10-31 19:53:28 Ovidio logan [place] Diastolic (mm Hg) 2013-10-31 19:53:28 Mem orial [place] Procedures Procedure Date / Time Performing Source Performed Clinician [id number] 2021-12-25 ROSMI [facility] 00:00:00 [facility] [id number] 2021-12-25 ROSMI [facility] 00:00:00 [facility] [id number] 2021-12-18 GARKI [facility] 00:00:00 [facility] [id number] 2021-12-18 GARKI [facility] 00:00:00 [facility] [id number] 2021-12-18 GARKI [facility] 00:00:00 [facility] [id number] 2021-12-18 GARKI [facility] 00:00:00 [facility] [id number] 2021-12-18 GARKI [facility] 00:00:00 [facility] [id number] 2021-12-18 GARKI [facility] 00:00:00 [facility] [id number] 2021-12-18 GARKI [facility] 00:00:00 [facility] [id number] 2021-12-18 GARKI [facility] 00:00:00 [facility] [id number] 2021-12-18 GARKI [facility] 00:00:00 [facility] [id number] 2021-12-18 GARKI [facility] 00:00:00 [facility] [id number] 2021-12-18 GARKI [facility] 00:00:00 [facility] [id number] 2021-12-18 GARKI [facility] 00:00:00 [facility] [id number] 2021-12-18 GARKI [facility] 00:00:00 [facility] [id number] 2021-12-18 GARKI [facility] 00:00:00 [facility] [id number] 2021-12-18 GARKI [facility] 00:00:00 [facility] [id number] 2021-12-18 GARKI [facility] 00:00:00 [facility] TTE COMPLETE, W CONTRAST, W 2021-11-19 [facility] DOPPLER ([id number]) 20:35:30 COMPREHENSIVE METABOLIC PANEL 2021-11-08 Rosemary Cyrilisabella [facility] 15:47:00 HEMOGLOBIN A1C 2021-11-08 [facility] Hos[facility] becki 15:45:00 LIPID PANEL 2021-11[facility]08 [facility] 15:44:00 XR HIP 3-4 VIEWS BILATERAL 2021-10-31 Larry Franco [facility] 15:51:17 XR RIBS 2 VW LEFT 2021-09-18 [facility]ital 19:08:22 XR HIP 2-3 VIEWS LEFT 2021-09-18 [facility] 19:08:05 POC GLUCOSE 2021-08-26 Colmenter, [facility] 13:28:00 [place] < 1 HOUR 2021-08-26 Colmenter, [facility] 12:50:00 INJECTION, SPINE, LUMBAR, 2021-08-26 Colment, [facility] EPIDURAL, INTERLAMINAR 12:36:00 APPROACH POC GLUCOSE 2021-08-26 Colmenter, [facility] 12:02:00 ECG PRE/POST OP 2021-08-26 [facility] 11:10[facility]36 [place] COMPREHENSIVE METABOLIC PANEL 2021-08-12 [facility] 14:49:00 XR HIP 2-3 VIEWS RIGHT 2021-08-07 [facility] 19:38:37 POC GLYCOSYLATED HEMOGLOBIN 2021-08-07 [facility] (HGB A1C) 18:50:00 TOXASSURE SELECT ([facility] 2021-06-30 Rose Wang [facility] MEDWATCH) 20:36:00 Kireyian [place] < 1 HOUR 2021-04-29 Colmenter, [facility] 16:00:00 INJECTION, SPINE, LUMBAR, 2021-04-29 Fanny Gómez [facility] EPIDURAL, INTERLAMINAR 15:45:00 APPROACH POC GLUCOSE 2021-04-29 [facility] [place] [facility] 15:26:00 HEMOGLOBIN A1C 2021-04[facility]01 [facility] 16:57:00 COMPREHENSIVE METABOLIC PANEL 2021-04-01 [facility] 16:57:00 CBC WITH PLATELET AND 2021-04-01 [facility] DIFFERENTIAL 16:57:00 HEPATITIS C ANTIBODY 2021-04-01 [facility] 16:57:00 LIPID PANEL 2021-04-01 [facility] 16:57:00 MICROALBUMIN / CREATININE 2021-04-01 [facility] URINE RATIO 16:57:00 VITAMIN D 25 HYDROXY LEVEL 2021-04-01 [facility] 16:57:00 THYROID STIMULATING HORMONE 2021-04-01 [facility] 16:57:00 COMPREHENSIVE METABOLIC PANEL 2021-02-10 [facility] 16:32:00 CBC WITH PLATELET AND 2021-02-[address] [facility] DIFFERENTIAL 16:32:00 MRI LUMBAR SPINE WO CONTRAST 2021-01-22 [facility] 17:23:13 CVRAD - Bilateral Carotid 2019-04-18 [facility] sicians Duplex - [id number] 00:00:00 CVRAD - Bilateral Carotid 2018-04-19 [facility] sicians Duplex - [id number] 00:00:00 CVRAD - [id number]:00 CVRAD - KATH - [id number] 2017-03-08 [place] [facility] 00:[facility] Thromboendarterectomy [facility] Replacement [facility] [place]ste[place] [facility] Plan of Care Planned Activity Planned Date Details Comments Source Future Scheduled 2022-01-09 HEPATITIS B VACCINES [facility] Test 08:37:44 (1 of 3 - 3-dose series) [code = HEPATITIS B VACCINES (1 of 3 - 3-dose series)] Future Scheduled 2022-01-09 [facility] Test 08:37:44 malignant neoplasm of lung (procedure) [code = 980900881] Future Scheduled 2022-01-09 SHINGLES VACCINES (1 [facility] Test 08:37:44 of 2) [code = SHINGLES VACCINES (1 of 2)] Future Scheduled 2022-01-09 BREAST CANCER [facility] Test 08:37:44 SCREENING [code = BREAST CANCER SCREENING] Future Scheduled 2022-01-09 65+ PNEUMOCOCCAL [facility] Test 08:37:44 VACCINE (3 - PPSV23 or PCV20) [code = 65+ PNEUMOCOCCAL VACCINE (3 - PPSV23 or PCV20)] Future Scheduled 2022-01-09 DIABETES: RETINAL EYE [facility] Test 08:37:44 EXAM [code = DIABETES: RETINAL EYE EXAM] Future Scheduled 2022-01-09 INFLUENZA VACCINE [facility] Test 08:37:44 [code = INFLUENZA VACCINE] Future Scheduled 2022-01-[address] [facility] Test 08:37:44 [code = URINE MICROALBUMIN] Future Scheduled 2022-01-09 DIABETIC FOOT EXAM [facility] Test 08:37:44 [code = DIABETIC FOOT EXAM] Future Scheduled 2022-01-09 COLONOSCOPY SCREENING [facility] Test 08:37:44 [code = COLONOSCOPY SCREENING] Encounters Start End Encounter Admission Attending Care Care Encounter Source Date/Time Date/Time Type Type Clinicians Facility Department ID 2022-01-11 Outpatient [id number] [facility] 14:50:07 [id number] [place] [id number] 2022-01-08 Inpatient JU Lieberman [id number] [facility] 10:50:00 Ramon [id number] [facility] 2022-01-06 Outpatient [facility] [id number] [place] 21:58:35 [id number] Health 2021-12-[address] [facility] [id number] [facility] 18:20:00 Ramon [id number] [facility] 2021-12-18 Inpatient FRANCI HernandezCL DAYS [id number] [facility] 05:24:00 Iggy [id number] [facility] 2021-11-27 Inpatient FRANCI MacdonaldPM RADI [id number] [facility] 11:04:00 Scot Gutiérrez [facility] 2021-02-10 Outpatient [id number] Memoria 11:35:18 [id number] [place] [id number] 2021-02-07 Outpatient [id number] [facility] 13:24:15 [id number] [place] [id number] 2022-01-08 2022-01-08 Telephone Desiree, 1.2.840.1 [id number] Methodi 00:00:00 00:00:[address] 3.430.2.7 Hospit a .3.873422 l .8 2022-01-06 2022-01-06 Telephone Desiree, 1.2.840.1 [id number] Methodi 00:00:00 00:00:[address] 3.430.2.7 Hospit a .3.464707 l .8 2021-12-24 2022-01-05 Inpatient LEAH Lieberman HCACL REHA [id number] [facility] 18:20:00 13:19:00 Ramon [facility] 2022-01-05 2022-01-05 Neli Shetty 1.2.840.1 [id number] [id number] Methodi 00:00:00 00:00:[address] 3.430.2.7 Hospit a .3.262325 l .8 2022-01-05 2022-01-05 Refill Desiree, 1.2.840.1 [id number] 07419 Methodi 00:00:00 00:00:[address] 3.430.2.7 Hospit a .3.707821 l .8 2021-12-29 2021-12-29 Refill Desiree, 1.2.840.1 [id number] Methodi 00:00:00 00:00:00 Alecia [address]53.1.[address] 3.430.2.7 Hospit a .3.661191 l .8 2021-12-25 2021-12-25 Telephone Gustavo, 1.2.840.1 [id number] 2 [id number] Methodi 00:00:00 00:00:[address] 3.430.2.7 Hospit a .3.968001 l .8 2021-12-20 2021-12-24 Inpatient [facility], [facility] DA[facility] [id number] [facility] 07:37:00 18:30:00 Iggy 98 [facility] 2021-12-20 2021-12-24 Inpatient [facility], [facility] DAYS [id number] -[id number] [facility] 07:37:00 18:30:00 Iggy 268333 [facility] 2021-11-27 2021-11-27 Orders Carine, 1.2.840.1 [id number] 8638 Methodi 00:00:00 00:00:00 Only Sugar 36244.1.[address] 3.430.2.7 Hospit a .3.252029 l .8 2021-11-19 2021-11-19 Outpatient DESIREE [facility] [id number] [place] 00:00:00 00:00:00 ALECIA [address] 2021-11-19 2021-11-19 Travel 1.2.840.1 1.2.778.556 9301 696319 Methodi 00:00:00 00:00:[address] 3.430.2.7 0.2.7.3.698 Ho spita .3.035490 084.8 l .8 2021-11-10 2021-11-10 Office Desiree 1.2.840.1 [id number] 38778 57590 Methodi 14:00:00 14:54:57 Visit Alecia 72040.1.[address] 3.430.2.7 Hospit a .3.584759 l .8 2021-11-10 2021-11-10 Outpatient [facility] [id number] [place] 00:00:00 00:00:00 ALECIA [address] 2021-11-10 2021-11-10 Travel 1.2.840.1 1.2.753.903 9869 832934 Methodi 00:00:00 00:00:[address] 3.430.2.7 0.2.7.3.698 Ho spita .3.914642 084.8 l .8 2021-10-31 2021-10-31 Office Larry Franco 1.2.840.1 [id number] 21 [id number] Methodi 11:00:00 11:39:13 Visit Ortiz 59783.1.[address] 3.430.2.7 Hospit a .3.424726 l .8 2021-10-31 2021-10-31 Outpatient LARRY FRANCO [facility] 066 [id number] [place] 00:00:00 00:00:[address] 2021-10-31 2021-10-31 Outpatient LARRY FRANCO [facility] 078 [id number] [place] 00:00:00 00:00:[address] 2021-10-29 2021-10-29 Orders Manuel, 1.2.840.1 [id number] 31144 24169 Methodi 00:00:00 00:00:00 Only Christel 24312.1.[address] 3.430.2.7 Hospit a .3.539129 l .8 2021-10-27 2021-10-27 Emergency Anu Gonsalez 1.2.840.1 [id number] Methodi 14:47:00 16:19:[address] 3.430.2.7 Hospit a .3.953400 l .8 2021-10-27 2021-10-27 ANU Menjivar [facility] 064 2099 [id number] [place] 00:00:00 00:00:[address] 2021-10-27 2021-10-27 Travel 1.2.840.1 1.2.978.118 5045 656344 Methodi 00:00:00 00:00:[address] 3.430.2.7 0.2.7.3.698 Ho spita .3.885934 084.8 l .8 2021-10-20 2021-10-20 Telephone Jose, 1.2.840.1 [id number] 586 [id number] Methodi 00:00:00 00:00:[address] 3.430.2.7 Hospit a .3.021315 l .8 2021-10-14 2021-10-14 Travel 1.2.840.1 1.2.113.387 2864 954292 Methodi 00:00:00 00:00:[address] 3.430.2.7 0.2.7.3.698 Ho spita .3.883520 084.8 l .8 2021-10-14 2021-10-14 Orders Neli Riley 1.2.840.1 [id number] 2099 [id number] Methodi 00:00:00 00:00:[address] 3.430.2.7 Hospit a .3.071666 l .8 2021-10-11 2021-10-11 Refill Desiree, 1.2.840.1 [id number] 38329 80363 Methodi 00:00:00 00:00:[address] 3.430.2.7 Hospit a .3.245487 l .8 2021-10-11 2021-10-11 Refill Colmenter, 1.2.840.1 [id number] 333 7364552 Methodi 00:00:00 00:00:[address] 3.430.2.7 Hospit a .3.427688 l .8 2021-10-11 2021-10-11 Refill Rosemary Hiba 1.2.840.1 [id number] 2099117 Methodi 00:00:00 00:00:[address] 3.430.2.7 Hospit a .3.295087 l .8 2021-10-11 2021-10-11 Refill Nikiaiu, 1.2.840.1 [id number] 269529 2614 Methodi 00:00:00 00:00:[address] Kireyian 3.430.2.7 Hospi ta .3.590673 l .8 2021-10-10 2021-10-10 Office Colmenter, 1.2.840.1 [id number] 754 2194922 Methodi 11:00:00 12:18:41 Visit Fanny 01132.1.[address] 3.430.2.7 Hospit a .3.783036 l .8 2021-10-10 2021-10-10 Outpatient COLMENTER, [facility] 2100 [id number] [place] 00:00:00 00:00:[address] FANNY [address] 2021-10-10 2021-10-10 Travel 1.2.840.1 1.2.713.396 0883 965082 Methodi 00:00:00 00:00:[address] 3.430.2.7 0.2.7.3.698 Ho spita .3.688740 084.8 l .8 2021-10-07 2021-10-07 Telephone Katinayard, 1.2.840.1 [id number] 21 [id number] Methodi 00:00:00 00:00:[address] 3.430.2.7 Hospit a .3.576236 l .8 2021-10-03 2021-10-03 Telephone Prashant, 1.2.840.1 [id number] 21 [id number] Methodi 00:00:00 00:00:[address] 3.430.2.7 Hospit a .3.875374 l .8 2021-10-02 2021-10-02 Telephone Jose, 1.2.840.1 [id number] 199 [id number] Methodi 00:00:00 00:00:[address] 3.430.2.7 Hospit a .3.866629 l .8 2021-10-01 2021-10-01 Telephone Carmencitaer, 1.2.840.1 [id number] 2 [id number] Methodi 00:00:00 00:00:[address] 3.430.2.7 Hospit a .3.970977 l .8 2021-09-30 2021-09-30 Travel 1.2.840.1 1.2.650.854 4408 321917 Methodi 00:00:00 00:00:[address] 3.430.2.7 0.2.7.3.698 Ho spita .3.101134 084.8 l .8 2021-09-29 2021-09-29 Orders Colmenter, 1.2.840.1 [id number] 050 8212329 Methodi 00:00:00 00:00:00 Only Fanny 51240.1.[address] 3.430.2.7 Hospit a .3.851915 l .8 2021-09-25 2021-09-25 Office Colmenter, 1.2.840.1 [id number] 304 [id number] Methodi 11:20:00 11:20:00 Visit Fanny 27608.1.[address] 3.430.2.7 Hospit a .3.047029 l .8 2021-09-25 2021-09-25 Outpatient COLMENTER, [facility] 8698 [id number] [place] 00:00:00 00:00:00 FANNY [address] 2021-09-25 2021-09-25 Travel 1.2.840.1 1.2.292.250 1507 470982 Methodi 00:00:00 00:00:[address] 3.430.2.7 0.2.7.3.698 Ho spita .3.682509 084.8 l .8 2021-09-18 2021-09-[address] [facility] 1.2.840.1 [id number] 49258 55295 Methodi 12:00:00 12:22:20 Visit Alecia 49743.1.[address] 3.430.2.7 Hospit a .3.663521 l .8 2021-09-18 2021-09-18 Outpatient [facility] [id number] 3978 [place] 00:00:00 00:00:00 ALECIA [address] 2021-09-18 2021-09-18 Outpatient [facility] [id number] 5455 [place] 00:00:00 00:00:00 ALECIA [address] 2021-09-18 2021-09-18 Outpatient [facility] [id number] 8508 Willis 00:00:00 00:00:00 ALECIA [address] 2021-09-18 2021-09-18 Travel 1.2.840.1 1.2.787.114 0840 956691 Methodi 00:00:00 00:00:[address] 3.430.2.7 0.2.7.3.698 Ho spita .3.119307 084.8 l .8 2021-08-26 2021-08-26 [facility], 1.2.840.1 [id number] 21 [id number] Methodi 06:43:00 09:12:00 Encounter Fanny 40553.1.[address] 3.430.2.7 Hospit a .3.434300 l .8 2021-08-26 2021-08-26 [facility], 1.2.840.1 [id number] 796 1455841 Methodi 07:34:00 07:53:[address] 3.430.2.7 Hospit a .3.086635 l .8 2021-08-26 2021-08-26 Anesthesia Mcleod, 1.2.840.1 [id number] 452 [id number] Methodi 07:36:00 07:52:00 Event Neto 75357.1.[address] Christopher 3.430.2.7 Ho spita .3.915234 l .8 2021-08-26 2021-08-26 Outpatient [facility] 021 2099 [id number] [place] 00:00:00 00:00:00 FANNY [address] 2021-08-25 2021-08-25 Telephone [facility], 1.2.840.1 [id number] 21 [id number] Methodi 00:00:00 00:00:[address] 3.430.2.7 Hospit a .3.904587 l .8 2021-08-21 2021-08-21 [facility] [id number] 21 [id number] Methodi 00:00:00 00:00:[address] 3.430.2.7 Hospit a .3.255821 l .8 2021-08-15 2021-08-15 Orders Neli Riley 1.2.840.1 [id number] 2099 020558 Methodi 00:00:00 00:00:[address] 3.430.2.7 Hospit a .3.007991 l .8 2021-08-12 2021-08-12 Lab Desiree, 1.2.840.1 [id number] 86483 92971 Methodi 09:50:00 09:55:[address] 3.430.2.7 Hospit a .3.640312 l .8 2021-08-12 2021-08-12 Office Neli Riley 1.2.840.1 [id number] 2099 759481 Methodi 09:00:00 09:35:[address] 3.430.2.7 Hospit a .3.973652 l .8 2021-08-12 2021-08-12 Outpatient NELI RILEY [facility] 89861 72591 Willis 00:00:00 00:00:[address] 2021-08-12 2021-08-12 Outpatient PATRICKL, [facility] 381002 3110 [place] 00:00:00 00:00:[address]LECIA [address] 2021-08-12 2021-08-12 Travel 1.2.840.1 1.2.399.029 2002 846200 Methodi 00:00:00 00:00:[address] 3.430.2.7 0.2.7.3.698 Ho spita .3.896705 084.8 l .8 2021-08-12 2021-08-12 Orders Propes, 1.2.840.1 364323071 899541 0524 Methodi 00:00:00 00:00:00 Only Percy 82273.1.[address] 3.430.2.7 Hospit a .3.001315 l .8 2021-08-11 2021-08-11 Office Colmenter, 1.2.840.1 [id number] 694 7186406 Methodi 09:20:00 10:09:53 Visit Fanny 35244.1.[address] 3.430.2.7 Hospit a .3.857957 l .8 2021-08-11 2021-08-11 Outpatient COLMENTER, [facility] 2100 [id number] Willis 00:00:00 00:00:00 FANNY [address] 2021-08-11 2021-08-11 Orders Edy, 1.2.840.1 [id number] 2099 336930 Methodi 00:00:00 00:00:00 Only Anel 08143.1.[address] 3.430.2.7 Hospit a .3.386279 l .8 2021-08-09 2021-08-[address] [facility].840[facility]1 [id number] 75944 35620 Methodi 00:00:00 00:00:[address] 3.430.2.7 Hospit a .3.069937 l .8 2021-08-08 2021-08-08 Refill Felipe, 1.2.840.1 [id number] 616655 4235 Methodi 00:00:00 00:00:[address] Kireyian 3.430.2.7 Hospi ta .3.960647 l .8 2021-08-08 2021-08-08 Refill Felipe, 1.2.840.1 [id number] 535845 3375 Methodi 00:00:00 00:00:[address] [facility] ta .3.935349 l .8 2021-08-08 2021-08-08 Refill Desiree, 1.2.840.1 [id number] 35094 Methodi 00:00:00 00:00:[address] 3.430.2.7 Hospit a .3.715741 l .8 2021-08-07 2021-08-07 Office Desiree, 1.2.840.1 [id number] Methodi 14:00:00 15:34:40 Visit Alecia 45931.1.[address] 3.430.2.7 Hospit a .3.502508 l .8 2021-08-07 2021-08-07 Outpatient [facility] [id number] 6789 [place] 00:00:00 00:00:00 ALECIA [address] 2021-08-07 2021-08-07 Outpatient [facility] [id number] 2484 [place] 00:00:00 00:00:00 ALECIA [address] 2021-08-07 2021-08-07 Travel 1.2.840.1 1.2.210.996 5626 274598 Methodi 00:00:00 00:00:[address] 3.430.2.7 0.2.7.3.698 Ho spita .3.223306 084.8 l .8 2021-08-06 2021-08-06 Telephone Edy, 1.2.840.1 [id number] 21 [id number] Methodi 00:00:00 00:00:[address] 3.430.2.7 Hospit a .3.442987 l .8 2021-08-05 2021-08-05 Orders Colmenter, 1.2.840.1 [id number] 327 1918956 Methodi 00:00:00 00:00:00 Only Fanny 57823.1.[address] 3.430.2.7 Hospit a .3.725093 l .8 2021-07-28 2021-07-28 Outpatient JESUS JESUSAMIN 1913 44 [facility]inic 14:00:00 14:00:00 JOLENE jesus PA 2021-07-20 2021-07-20 Refill Desiree, 1.2.840.1 [id number] 58707 96694 Methodi 00:00:00 00:00:[address] 3.430.2.7 Hospit a .3.009422 l .8 2021-07-11 2021-07-11 Clinical Colmenter, 1.2.840.1 [id number] 21 [id number] Methodi 10:20:00 11:12:23 Support Fanny 59854.1.[address] 3.430.2.7 Hospit a .3.572501 l .8 2021-07-11 2021-07-11 Outpatient COLMENTER, [facility] 2100 [id number] [place] 00:00:00 00:00:[address] FANNY [address] 2021-07-11 2021-07-11 Telephone Hipolito Mcleod 1.2.840.1 [id number] 21 [id number] Methodi 00:00:00 00:00:[address] 3.430.2.7 Hospit a .3.479501 l .8 2021-07-11 2021-07-11 Travel 1.2.840.1 1.2.240.276 5720 447600 Methodi 00:00:00 00:00:[address] 3.430.2.7 0.2.7.3.698 Ho spita .3.377359 084.8 l .8 2021-07-09 2021-07-09 Telephone Desiree, 1.2.840.1 [id number] 722 0337220 Methodi 00:00:00 00:00:[address] 3.430.2.7 Hospit a .3.065193 l .8 2021-07-09 2021-07-09 Travel 1.2.840.1 1.2.017.631 0984 740471 Methodi 00:00:00 00:00:[address] 3.430.2.7 0.2.7.3.698 Ho spita .3.429519 084.8 l .8 2021-07-07 2021-07-07 Orders Dalia, 1.2.840.1 [id number] 122 0494250 Methodi 00:00:00 00:00:00 Only Fanny 05881.1.[address] 3.430.2.7 Hospit a .3.145331 l .8 2021-07-03 2021-07-03 Refill Desiree, 1.2.840.1 [id number] 86044 71288 Methodi 00:00:00 00:00:[address] 3.430.2.7 Hospit a .3.128646 l .8 2021-07-01 2021-07-01 Telephone Grant, 1.2.840.1 [id number] 2099125 Methodi 00:00:00 00:00:[address] 3.430.2.7 Hospit a .3.280272 l .8 2021-06-30 2021-06-30 Office Felipe, 1.2.840.1 [id number] 199845 7852 Methodi 14:00:00 16:18:57 Visit Rose 37250.1.[address] Kireyian 3.430.2.7 Hospi ta .3.351125 l .8 2021-06-30 2021-06-30 Outpatient [facility] [id number] 845 [place] 00:00:00 00:00:[address] 2021-06-30 2021-06-30 Travel 1.2.840.1 1.2.184.226 9291 717910 Methodi 00:00:00 00:00:[address] 3.430.2.7 0.2.7.3.698 Ho spita .3.515489 084.8 l .8 2021-06-25 2021-06-25 Outpatient JEUSS JESUS JOLENE 1896 53 eClinic 15:20:00 15:20:00 JOLENE Berry s MALDONADO 2021-06-19 2021-06-19 Refill Patrickl, 1.2.840.1 [id number] 74979 90573 Methodi 00:00:00 00:00:[address] 3.430.2.7 Hospit a .3.517046 l .8 2021-06-19 2021-06-19 Refill RosemaryNeli 1.2.840.1 [id number] 2100 889068 Methodi 00:00:00 00:00:[address] 3.430.2.7 Hospit a .3.225453 l .8 2021-05-28 2021-05-28 Outpatient JESUS JESUS JOLENE 1882 75 [facility]Clinic 16:20:00 16:20:00 JOLENE Berry s MALDONADO 2021-05-08 2021-05-08 Refill Patrickl, 1.2.840.1 [id number] 80408 41502 Methodi 00:00:00 00:00:[address] 3.430.2.7 Hospit a .3.935363 l .8 2021-04-30 2021-04-30 Outpatient JESUS JESUS FERNÁNDEZ 1862 95 eClinic 16:00:00 16:00:00 JOLENE OKEEFE 2021-04-29 2021-04-29 [facility] 1.2.840.1 [id number] 21 [id number] Methodi 08:56:00 11:04:00 Encounter Fanny 76482.1.[address] 3.430.2.7 Hospit a .3.057771 l .8 2021-04-29 2021-04-29 Surgery [facility], 1.2.840.1 [id number] 863 [id number] Methodi 09:50:00 10:10:[address] 3.430.2.7 Hospit a .3.715601 l .8 2021-04-29 2021-04-29 Anesthesia Lis, 1.2.840.1 606894636 728 5354489 Methodi 09:45:00 09:58:00 Event Micah Price 99662.1.[address] 3.430.2.7 Hospit a .3.801398 l .8 2021-04-29 2021-04-29 Outpatient [facility] 021 2100 998029 [place] 00:00:00 00:00:[address] FANNY [address] 2021-04-24 2021-04-24 Telephone Hipolito Mcleod 1.2.840.1 [id number] 21 [id number] Methodi 00:00:00 00:00:[address] 3.430.2.7 Hospit a .3.675420 l .8 2021-04-14 2021-04-14 Orders Rashmi 1.2.840.1 [id number] 21 35150134 Methodi 00:00:00 00:00:00 Only , Melita 67787.1.[address] 3.430.2.7 Hospit a .3.274680 l .8 2021-04-09 2021-04-09 Refill Desiree, 1.2.840.1 [id number] 60801 09504 Methodi 00:00:00 00:00:[address] 3.430.2.7 Hospit a .3.401411 l .8 2021-04-09 2021-04-09 Refkiran Neli Riley 1.2.840.1 [id number] 2100 746393 Methodi 00:00:00 00:00:[address] 3.430.2.7 Hospit a .3.512320 l .8 2021-04-01 2021-04-01 Lab [facility], 1.2.840.1 [id number] 40440 75249 Methodi 11:35:00 11:40:[address] 3.430.2.7 Hospit a .3.727295 l .8 2021-04-01 2021-04-01 Office [facility], 1.2.840.1 [id number] 40218 88668 Methodi 10:15:00 11:23:32 Visit Alecia 21986.1.[address] 3.430.2.7 Hospit a .3.212954 l .8 2021-04-01 2021-04-01 Outpatient [facility] [id number] 9452 [place] 00:00:00 00:00:00 ALECIA [address] 2021-04-01 2021-04-01 Outpatient [facility] [id number] 3745 [place] 00:00:00 00:00:00 ALECIA [address] 2021-04-01 2021-04-01 Travel 1.2.840.1 1.2.739.154 8257 620902 Methodi 00:00:00 00:00:[address] 3.430.2.7 0.2.7.3.698 Ho spita .3.239863 084.8 l .8 2021-03-31 2021-03-31 Outpatient JESUS FERNÁNDEZ 1845 06 eClinic 17:15:00 17:15:00 JOLENE OKEEFE 2021-03-27 2021-03-27 Telephone Vu, Mcmillan 1.2.840.1 [id number] 21 [id number] Methodi 00:00:00 00:00:[address] 3.430.2.7 Hospit a .3.716132 l .8 2021-03-26 2021-03-26 Office Colmenter, 1.2.840.1 [id number] 335 7631145 Methodi 14:00:00 17:27:29 Visit Fanny 80287.1.[address] 3.430.2.7 Hospit a .3.094863 l .8 2021-03-26 2021-03-26 Travel 1.2.840.1 1.2.254.295 2080 083432 Methodi 00:00:00 00:00:[address] 3.430.2.7 0.2.7.3.698 Ho spita .3.061187 084.8 l .8 2021-03-26 2021-03-26 Outpatient COLMENTER, [facility] 2100 [id number] [place] 00:00:00 00:00:00 FANNY [address] 2021-03-05 2021-03-05 Refill Juliocesarhoul, 1.2.840.1 [id number] Methodi 00:00:00 00:00:[address] 3.430.2.7 Hospit a .3.500154 l .8 2021-02-13 2021-02-13 Refill Patrickl, 1.2.840.1 956429681648 Methodi 00:00:00 00:00:[address] 3.430.2.7 Hospit a .3.545468 l .8 2021-02-10 2021-02-10 Lab Neli Riley 1.2.840.1 [id number] 2099 927823 Methodi 11:30:00 11:35:[address] 3.430.2.7 Hospit a .3.458961 l .8 2021-02-10 2021-02-10 Office Neli Riley 1.2.840.1 [id number] 2099 361951 Methodi 11:00:00 11:22:[address] 3.430.2.7 Hospit a .3.063034 l .8 2021-02-10 2021-02-10 Travel 1.2.840.1 1.2.454.826 5742 216035 Methodi 00:00:00 00:00:[address] 3.430.2.7 0.2.7.3.698 Ho spita .3.681979 084.8 l .8 2021-02-10 2021-02-10 [facility] 08549 15395 [place] 00:00:00 00:00:[address] 2021-02-10 2021-02-10 Outpatient ROSEMARY, [facility] 06401 99842 [place] 00:00:00 00:00:[address] 2021-02-07 2021-02-07 Outpatient ROSEMARY, [facility] 75408 14123 [place] 00:00:00 00:00:[address] 2021-02-07 2021-02-07 Travel 1.2.840.1 1.2.812.053 7228 070542 Methodi 00:00:00 00:00:[address] 3.430.2.7 0.2.7.3.698 Ho spita .3.104882 084.8 l .8 2021-02-03 2021-02-03 Outpatient JESUS FERNÁNDEZ 1810 82 eClinic 17:15:00 17:15:00 JOLENE OKEEFE 2021-01-22 2021-01-22 Outpatient ROSEMARY, [facility] 67321 12580 [place] 00:00:00 00:00:[address] 2021-01-16 2021-01-16 Refill Desiree, 1.2.840.1 [id number] 28895 01236 Methodi 00:00:00 00:00:[address] 3.430.2.7 Hospit a .3.044060 l .8 2021-01-14 2021-01-14 Office Neli Riley 1.2.840.1 [id number] 2100 975456 Methodi 13:00:00 14:00:[address] 3.430.2.7 Hospit a .3.002586 l .8 2021-01-14 2021-01-14 Travel 1.2.840.1 1.2.270.001 5427 046503 Methodi 00:00:00 00:00:[address] 3.430.2.7 0.2.7.3.698 Ho spita .3.343977 084.8 l .8 2021-01-14 2021-01-14 Outpatient NELI RILEY [facility] 32924 72959 [place] 00:00:00 00:00:[address] 2021-01-13 2021-01-13 Refill Carine, 1.2.840.1 [id number] 531981 7251 Methodi 00:00:00 00:00:[address] 3.430.2.7 Hospit a .3.529934 l .8 2021-01-06 2021-01-06 Outpatient JESUS JESUS FERNÁNDEZ [id number] eClinic 15:40:00 15:40:00 JOLENE OKEEFE 2020-12-18 2020-12-18 Outpatient DESIREE [facility] [id number] [place] 00:00:00 00:00:00 ALECIA [address] 2020-12-10 2020-12-10 Outpatient JESUS JESUS FERNÁNDEZ [id number] eClinic 15:20:00 15:20:00 JOLENE OKEEFE 2020-11-13 2020-11-13 Outpatient JESUS JESUS FERNÁNDEZ [id number] eClinic 14:40:00 14:40:00 JOLENE OKEEFE 2020-10-16 2020-10-16 Outpatient JESUS JESUS FERNÁNDEZ [id number] eClinic 16:00:00 16:00:00 JOLENE OKEEFE alWork s PA 2020-08-27 2020-08-27 Outpatient PATRICKL, [facility] [id number] [place] 00:00:00 00:00:[address] 2020-08-05 2020-08-05 Outpatient JOYCE, [facility] [id number] 11:41:00 13:29:[address] [facility] 2020-07-22 2020-07-22 Outpatient JESUS JESUS FERNÁNDEZ [id number] eClinic 16:45:00 16:45:00 JOLENE OKEEFE alWork s PA 2020-06-24 2020-06-24 Outpatient JESUS JESUS FERNÁNDEZ [id number] eClinic 14:30:00 14:30:00 JOLENE OKEEFE alWork s PA 2020-06-17 2020-06-17 Outpatient KRONFOL, [facility] [id number] [place] 00:00:00 00:00:00 ZIAD [address] 2020-06-13 2020-06-13 Outpatient JOYCE, [facility] [id number] [place] 00:00:00 00:00:00 SVETANG [address] 2020-06-11 2020-06-11 Outpatient JOYCE, [facility] [id number] [place] 00:00:00 00:00:00 SVETANG [address] 2020-05-27 2020-05-27 Outpatient JESUS JESUS FERNÁNDEZ [id number] eClinic 16:45:00 16:45:00 JOLENE OKEEFE alWork s PA 2020-05-08 2020-05-08 Outpatient JOYCE, [facility] [id number] [place] 00:00:00 00:00:00 SVETANG [address] 2020-04-24 2020-04-24 Outpatient JESUS JESUS FERNÁNDEZ [id number] eClinic 16:45:00 16:45:00 JOLENE varelaWork s PA 2020-03-28 2020-03-28 Outpatient JESUS JESUS FERNÁNDEZ [id number] eClinic 16:15:00 16:15:00 JOLENE OKEEFE alWork s PA 2020-02-29 2020-02-29 Outpatient JESUS JESUS FERNÁNDEZ [id number] eClinic 15:15:00 15:15:00 JOLENE Berry s MALDONADO 2020-02-15 2020-02-15 Outpatient JESUS JESUS FERNÁNDEZ [id number] eClinic 14:30:00 14:30:00 JOLENE OKEEFE 2019-12-12 2019-12-12 Outpatient EDWIN, [facility] [id number] [place] 00:00:00 00:00:00 MADY [address] 2019-11-21 2019-11-21 Outpatient DESIREE, [facility] [id number] [place] 00:00:00 00:00:00 ALECIA [address] 2019-07-13 2019-07-13 Outpatient EDWIN [facility] [id number] [place] 00:00:00 00:00:00 MADY [address] 2019-06-04 2019-06-08 Inpatient TEQWBOAZ, [facility] [id number] [place] 00:00:00 00:00:00 PATRICK [address] 2019-05-30 2019-05-30 JIMMY [facility] [id number] [place] 10:00:00 10:00:00 t; ALLYSON FABIAN, Eliezer - P lona VALADEZ M.D. [facility] kristine Hogan 2019-05-15 2019-05-15 Outpatient JESUS JESUS FERNÁNDEZ [id number] eClinic 11:15:00 11:15:00 JOLENE Berry s MALDONADO 2019-05-12 2019-05-12 Outpatient DANNI Ferreira [facility] [id number] [facility] 12:00:00 12:00:[id number] [facility] 2019-04-18 2019-04-18 Franco VASCULAR, [facility] Thoracic [id number] [place] 10:00:00 10:00:00 t; Surgery - [facility] VASCULAR, [facility] ans 2018-05-03 2018-05-03 JIMMY [facility] [id number] [place] 10:15:00 10:15:00 t; ALLYSON FABIAN cic and Jefry VALADEZ M.D. [facility] 2018-04-19 2018-04-19 Appointmen VASCULAR, [facility] 4 [id number] [place] 10:30:00 10:30:00 t; SE cic and Physic i VASCULAR, Vascular ans SE Surgery at [facility] 2017-03-23 2017-03-23 Appointjohn GARTHJIMMY [facility] [id number] [place] 11:00:00 11:00:00 t; ALLYSON FABIAN cic and Jefry VALADEZ M.D. Vascular ans [facility] [place] 2017-03-08 2017-03-08 Appointmen VASCULAR, UTP UTP [id number] [place] 10:30:00 10:30:00 t; SE Physic i VASCULAR, ans SE 2017-03-08 2017-03-08 Appointmen VASCULAR, UTP UTP [id number] [place] 10:00:00 10:00:00 t; SE Physic i VASCULAR, ans 2017-02-09 2017-02-09 Appointjohn FABIAN, [facility] UTP [id number] [place] 09:45:00 09:45:00 t; ALLYSON FABIAN, Jefry VALADEZ M.D. ans [place] 2016-04-20 2016-04-20 Appointjohn LU, [facility] UTP [id number] [place] 15:00:00 15:00:00 t; SHERIDAN LU Phy sici SHAO-CHUN, D.O. ans D.OMargaret 2014-01-11 2014-01-11 Office nullFlavo [facility] [id number] Memoria 00:00:00 00:00:00 Visit nargis Hull [id number] [facility] Colorectal Surgery 2013-12-29 2013-12-29 Office nullFlavo [facility] [id number] Memoria 00:00:00 00:00:00 Visit nargis Hull [id number] [facility] Col[facility] 2013-12-22 2013-12-22 Office nullFlavo [facility] [id number] Memoria 00:00:00 00:00:00 Visit nargis Hull [id number] [facility] Colorectal Surgery 2013-12-14 2013-12-14 Office nullFlavo [facility] [id number] Memoria 00:00:00 00:00:00 Visit nargis Hull [id number] [facility] Colorectal Surgery 2013-11-28 2013-11-28 Office nullFlavo [facility] [id number] Memoria 00:00:00 00:00:00 Visit nargis Hull [id number] [facility] Colorectal Surgery 2013-11-02 2013-11-02 Lab Report [facility] [id number] Memoria 00:00:00 00:00:00 nargis Kurtis [id number] [facility] [place] 2013-10-31 2013-10-31 Office [facility] [id number] Visit nargis Kurtis [id number] [facility] Col[facility] Results Test Description Test Time Test Comments Results Result Comments Source GLUCOSE BEDSIDE 2022-01-07 06:59:00 Test Item Value Reference Range Interpretation Comme nts GLUCOSE BEDSIDE (test code = 113 MG/DL 70-110 H Performed by certified 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 [facility]) [facility] GLUCOSE [id number] 11:09:00 Test Item Value Reference Range Interpretation Comments GLUCOSE BEDSIDE (test 89 MG/DL 70-110 N Perfor med by certified code = GLUBED) 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[place]UCOSE [id number] 05:50:00 Test Item Value Reference Range Interpretation Comments GLUCOSE BEDSIDE (test 105 MG/DL 70-110 N Perfor med by certified code = GLUBED) 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[place] GLUCOSE [id number] 20:15:00 Test Item Value Reference Range Interpretation Comments GLUCOSE BEDSIDE (test 128 MG/DL 70-110 H Perfor med by certified code = GLUBED) 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[place] GLUCOSE [id number] 17:20:00 Test Item Value Reference Range Interpretation Comments GLUCOSE BEDSIDE (test 140 MG/DL 70-110 H Perfor med by certified code = GLUBED) 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[place] GLUCOSE [id number] 16:32:00 Test Item Value Reference Range Interpretation Comments GLUCOSE BEDSIDE (test 103 MG/DL 70-110 N Perfor med by certified code = GLUBED) 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[place] GLUCOSE [id number] 11:32:00 Test Item Value Reference Range Interpretation Comments GLUCOSE BEDSIDE (test 125 MG/DL 70-110 H Perfor med by certified code = GLUBED) 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[place] GLUCOSE [id number] 05:35:00 Test Item Value Reference Range Interpretation Comments GLUCOSE BEDSIDE (test 97 MG/DL 70-110 N Perfor med by certified code = GLUBED) 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[place] GLUCOSE [id number] 21:07:00 Test Item Value Reference Range Interpretation Comments GLUCOSE BEDSIDE (test 138 MG/DL 70-110 H Perfor med by certified code = GLUBED) 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[place] GLUCOSE [id number] 11:15:00 Test Item Value Reference Range Interpretation Comments GLUCOSE BEDSIDE (test 111 MG/DL 70-110 H Perfor med by certified code = GLUBED) 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[place] GLUCOSE [id number] 07:25:00 Test Item Value Reference Range Interpretation Comments GLUCOSE BEDSIDE (test 110 MG/DL 70-110 N Perfor med by certified code = GLUBED) 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[place] GLUCOSE [id number] 06:07:00 Test Item Value Reference Range Interpretation Comments GLUCOSE BEDSIDE (test 110 MG/DL 70-110 N Perfor med by certified code = GLUBED) 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[place] GLUCOSE [id number] 20:55:00 Test Item Value Reference Range Interpretation Comments GLUCOSE BEDSIDE (test 124 MG/DL 70-110 H Perfor med by certified code = GLUBED) 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[place] GLUCOSE [id number] 15:43:00 Test Item Value Reference Range Interpretation Comments GLUCOSE BEDSIDE (test 134 MG/DL 70-110 H Perfor med by certified code = GLUBED) 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[place] GLUCOSE [id number] 12:04:00 Test Item Value Reference Range Interpretation Comments GLUCOSE BEDSIDE (test 101 MG/DL 70-110 N Perfor med by certified code = GLUBED) 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[place] GLUCOSE [id number] 05:17:00 Test Item Value Reference Range Interpretation Comments GLUCOSE BEDSIDE (test 155 MG/DL 70-110 H Perfor med by certified code = GLUBED) 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[place] GLUCOSE [id number] 19:48:00 Test Item Value Reference Range Interpretation Comments GLUCOSE BEDSIDE (test 184 MG/DL 70-110 H Perfor med by certified code = GLUBED) 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[place] GLUCOSE [id number] 15:58:00 Test Item Value Reference Range Interpretation Comments GLUCOSE BEDSIDE (test 160 MG/DL 70-110 H Perfor med by certified code = GLUBED) 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[place] GLUCOSE [id number] 10:46:00 Test Item Value Reference Range Interpretation Comments GLUCOSE BEDSIDE (test 123 MG/DL 70-110 H Perfor med by certified code = GLUBED) 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[place] GLUCOSE [id number] 05:31:00 Test Item Value Reference Range Interpretation Comments GLUCOSE BEDSIDE (test 100 MG/DL 70-110 N Perfor med by certified code = GLUBED) 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[place] GLUCOSE [id number] 18:56:00 Test Item Value Reference Range Interpretation Comments GLUCOSE BEDSIDE (test 148 MG/DL 70-110 H Perfor med by certified code = GLUBED) 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[place] GLUCOSE [id number] 15:37:00 Test Item Value Reference Range Interpretation Comments GLUCOSE BEDSIDE (test 109 MG/DL 70-110 N Perfor med by certified code = GLUBED) 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[place] GLUCOSE [id number] 11:25:00 Test Item Value Reference Range Interpretation Comments GLUCOSE BEDSIDE (test 141 MG/DL 70-110 H Perfor med by certified code = GLUBED) 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[place] GLUCOSE [id number] 06:34:00 Test Item Value Reference Range Interpretation Comments GLUCOSE BEDSIDE (test 100 MG/DL 70-110 N Perfor med by certified code = GLUBED) 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[place] GLUCOSE [id number] 20:11:00 Test Item Value Reference Range Interpretation Comments GLUCOSE BEDSIDE (test 114 MG/DL 70-110 H Perfor med by certified code = GLUBED) 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[place] GLUCOSE [id number] 16:08:00 Test Item Value Reference Range Interpretation Comments GLUCOSE BEDSIDE (test 209 MG/DL 70-110 H Perfor med by certified code = GLUBED) 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[place] GLUCOSE [id number] 11:54:00 Test Item Value Reference Range Interpretation Comments GLUCOSE BEDSIDE (test 114 MG/DL 70-110 H Perfor med by certified code = GLUBED) 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[place] GLUCOSE [id number] 05:28:00 Test Item Value Reference Range Interpretation Comments GLUCOSE BEDSIDE (test 103 MG/DL 70-110 N Perfor med by certified code = GLUBED) 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[place] GLUCOSE [id number] 19:30:00 Test Item Value Reference Range Interpretation Comments GLUCOSE BEDSIDE (test 152 MG/DL 70-110 H Perfor med by certified code = GLUBED) 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[place] GLUCOSE [id number] 16:20:00 Test Item Value Reference Range Interpretation Comments GLUCOSE BEDSIDE (test 94 MG/DL 70-110 N Perfor med by certified code = GLUBED) 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[place] GLUCOSE [id number] 11:09:00 Test Item Value Reference Range Interpretation Comments GLUCOSE BEDSIDE (test 177 MG/DL 70-110 H Perfor med by certified code = GLUBED) 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[place] GLUCOSE [id number] 05:54:00 Test Item Value Reference Range Interpretation Comments GLUCOSE BEDSIDE (test 119 MG/DL 70-110 H Perfor med by certified code = GLUBED) 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[place] GLUCOSE [id number] 20:53:00 Test Item Value Reference Range Interpretation Comments GLUCOSE BEDSIDE (test 133 MG/DL 70-110 H Perfor med by certified code = GLUBED) 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[place] GLUCOSE [id number] 16:20:00 Test Item Value Reference Range Interpretation Comments GLUCOSE BEDSIDE (test 158 MG/DL 70-110 H Perfor med by certified code = GLUBED) 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[place] GLUCOSE [id number] 11:39:00 Test Item Value Reference Range Interpretation Comments GLUCOSE BEDSIDE (test 102 MG/DL 70-110 N Perfor med by certified code = GLUBED) 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[place] BASIC METABOLIC [id number] 08:27:00 Test Item Value Reference Range Interpretation Comments SODIUM (test code = NA) 137 mEq/L 134-147 N POTASSIUM (test code = 4.1 mEq/L 3.4-5.0 N K) CHLORIDE (test code = 105 mEq/L 100-108 N CL) CARBON DIOXIDE (test 24 mEq/l 21-33 N code = CO2) ANION GAP (test code = 13 0-20 N GAP) GLUCOSE (test code = 112 mg/dL 70-110 H GLU) BLOOD UREA NITROGEN 7 mg/dL 7-18 (test code = BUN) GLOMERULAR FILTRATION 83.2 80-90 N Units of measure = RATE (test code = GFR) ml/mi n/1.73 m2 CREATININE (test code = 0.7 mg/dL 0.6-1.3 N CREAT) CALCIUM (test code = 9.2 mg/dL 8.0-10.5 N CA) HGB [id number] 07:45:00 Test Item Value Reference Range Interpretation Comments HEMOGLOBIN (test code = HGB) 8.3 g/dL 11.0-15.0 L HEMATOCRIT (test code = HCT) 26.4 % 33.0-45.0 L GLUCOSE [id number] 05:54:00 Test Item Value Reference Range Interpretation Comments GLUCOSE BEDSIDE (test 115 MG/DL 70-110 H Perfor med by certified code = GLUBED) 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[place] GLUCOSE [id number] 19:46:00 Test Item Value Reference Range Interpretation Comments GLUCOSE BEDSIDE (test 113 MG/DL 70-110 H Perfor med by certified code = GLUBED) 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[place] GLUCOSE [id number] 16:39:00 Test Item Value Reference Range Interpretation Comments GLUCOSE BEDSIDE (test 135 MG/DL 70-110 H Perfor med by certified code = GLUBED) 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[place] GLUCOSE [id number] 06:13:00 Test Item Value Reference Range Interpretation Comments GLUCOSE BEDSIDE (test 117 MG/DL 70-110 H Perfor med by certified code = GLUBED) 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[place] GLUCOSE [id number] 20:21:00 Test Item Value Reference Range Interpretation Comments GLUCOSE BEDSIDE (test 168 MG/DL 70-110 H Perfor med by certified code = GLUBED) 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[place] GLUCOSE [id number] 16:12:00 Test Item Value Reference Range Interpretation Comments GLUCOSE BEDSIDE (test 132 MG/DL 70-110 H Perfor med by certified code = GLUBED) 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[place] GLUCOSE [id number] 11:45:00 Test Item Value Reference Range Interpretation Comments GLUCOSE BEDSIDE (test 110 MG/DL 70-110 N Perfor med by certified code = GLUBED) 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[place] CBC W/AUTO [id number] 08:02:00 Test Item Value Reference Range Interpretation Comments WHITE BLOOD CELL (test code = 6.7 x10 3/uL 4.5-11.0 N WBC) RED BLOOD CELL (test code = 2.70 x10 6/uL 3.54-5.02 L RBC) HEMOGLOBIN (test code = HGB) 7.9 g/dL 11.0-15.0 L HEMATOCRIT (test code = HCT) 24.3 % 33.0-45.0 L MEAN CELL VOLUME (test code = 90.0 fL 81.0-99.0 N MCV) MEAN CELL HGB (test code = MCH) 29.3 pg 27.0-33.0 N MEAN CELL HGB CONCETRATION 32.5 g/dL 33.0-37.0 L (test code = MCHC) RED CELL DISTRIBUTION WIDTH CV 15.1 % 11.5-14.5 H (test code = RDW) RED CELL DISTRIBUTION WIDTH SD 48.3 fL 37.0-54.0 N (test code = RDW-SD) PLATELET COUNT (test code = 422 x10 3/uL 150-400 H PLT) MEAN PLATELET VOLUME (test code 9.5 fL 7.0-9.0 H = MPV) NEUTROPHIL % (test code = NT%) 67.5 % 56.0-77.0 N IMMATURE GRANULOCYTE % (test 1.3 % 0.0-2.0 N code = IG%) LYMPHOCYTE % (test code = LY%) 17.7 % 14.0-32.0 N MONOCYTE % (test code = MO%) 8.6 % 4.8-9.0 N EOSINOPHIL % (test code = EO%) 4.5 % 0.3-3.7 H BASOPHIL % (test code = BA%) 0.4 % 0.0-2.0 N NUCLEATED RBC % (test code = 0.3 % 0-0 H NRBC%) NEUTROPHIL # (test code = NT#) 4.55 x10 3/uL 2.0-7.6 N IMMATURE GRANULOCYTE # (test 0.09 x10 3/uL 0.00-0.03 H code = IG#) LYMPHOCYTE # (test code = LY#) 1.19 x10 3/uL 1.0-3.8 N MONOCYTE # (test code = MO#) 0.58 x10 3/uL 0.1-0.8 N EOSINOPHIL # (test code = EO#) 0.30 x10 3/uL 0.0-0.2 H BASOPHIL # (test code = BA#) 0.03 x10 3/uL 0.0-0.2 N NUCLEATED RBC # (test code = 0.02 x10 3/uL 0.0-0.1 N NRBC#) MANUAL DIFF REQUIRED (test code NO = MDIFF) BASIC METABOLIC [id number] 07:17:00 Test Item Value Reference Range Interpretation Comments SODIUM (test code = NA) 137 mEq/L 134-147 N POTASSIUM (test code = 4.0 mEq/L 3.4-5.0 N K) CHLORIDE (test code = 105 mEq/L 100-108 N CL) CARBON DIOXIDE (test 26 mEq/l 21-33 N code = CO2) ANION GAP (test code = 11 0-20 N GAP) GLUCOSE (test code = 107 mg/dL 70-110 N GLU) BLOOD UREA NITROGEN 10 mg/dL 7-18 N (test code = BUN) GLOMERULAR FILTRATION 99.4 80-90 H Units of measure = RATE (test code = GFR) ml/mi n/1.73 m2 CREATININE (test code = 0.6 mg/dL 0.6-1.3 N CREAT) CALCIUM (test code = 9.1 mg/dL 8.0-10.5 N CA) GLUCOSE [id number] 05:55:00 Test Item Value Reference Range Interpretation Comments GLUCOSE BEDSIDE (test 105 MG/DL 70-110 N Perfor med by certified code = GLUBED) 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[place] GLUCOSE [id number] 20:40:00 Test Item Value Reference Range Interpretation Comments GLUCOSE BEDSIDE (test 104 MG/DL 70-110 N Perfor med by certified code = GLUBED) 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[place] GLUCOSE [id number] 16:21:00 Test Item Value Reference Range Interpretation Comments GLUCOSE BEDSIDE (test 129 MG/DL 70-110 H Perfor med by certified code = GLUBED) 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[place] GLUCOSE [id number] 11:29:00 Test Item Value Reference Range Interpretation Comments GLUCOSE BEDSIDE (test 117 MG/DL 70-110 H Perfor med by certified code = GLUBED) 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[place] VITAMIN [id number] 09:56:00 Test Item Value Reference Range Interpretation Comments VITAMIN B12 (test code = VITB12) 628 pg/mL 193-986 N Indication for Test: Malabsorption/MalnutritioFOLIC [id number] 09:56:00 Test Item Value Reference Range Interpretation Comments FOLIC ACID (test code = FOL) 27.0 ng/mL 3.1-17.5 H Indication for Test: Malabsorption/MalnutritioVITAMIN D [id number] 09:56:00 Test Item Value Reference Range Interpretation Comments VITAMIN D 25-HYDROXY (test code = 37.5 ng/mL 30-100 N VITD25) Indication for Test: Malabsorption/MalnutritioGLUCOSE [id number] 05:25:00 Test Item Value Reference Range Interpretation Comments GLUCOSE BEDSIDE (test 120 MG/DL 70-110 H Perfor med by certified code = GLUBED) 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[place] GLUCOSE [id number] 20:35:00 Test Item Value Reference Range Interpretation Comments GLUCOSE BEDSIDE (test 138 MG/DL 70-110 H Perfor med by certified code = GLUBED) 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[place] GLUCOSE [id number] 15:40:00 Test Item Value Reference Range Interpretation Comments GLUCOSE BEDSIDE (test 119 MG/DL 70-110 H Perfor med by certified code = GLUBED) 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[place] COVID 19 Asymptomatic IH [id number] 13:00:00 Test Item Value Reference Range Interpretation Comments COVID 19 Asymptomatic Negative Negative A nega tive result is IH AG (test code = presumpti ve and should COVNONPUIAG) be confirmedwit h an FDA authorized mole cular assay, if neces asaf forpatient dustin gement.A positive result does not rule out co-inf ections withother patho gens.This test detects olive viable (live) and non-viable,SARS -CoV, and SARS-CoV-2. Meagan t performance dep ends on theamount of vi sarah (antigen) in e sample.This meagan t has not been FDA cleare d or approved; the t est hasbeen authori zed by FDA under an Em ergency Use Authorizati on(EUA) for use by labo ratories certified under the CLIA thatmeet the requirements to perform moderate, high or waivedcomplexit y tests. GLUCOSE [id number] 11:58:00 Test Item Value Reference Range Interpretation Comments GLUCOSE BEDSIDE (test 157 MG/DL 70-110 H Perfor med by certified code = GLUBED) 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[place] GLUCOSE [id number] 08:17:00 Test Item Value Reference Range Interpretation Comments GLUCOSE BEDSIDE (test 109 MG/DL 70-110 N Perfor med by certified code = GLUBED) 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 [facility] BASIC METABOLIC [id number] 07:50:00 Test Item Value Reference Range Interpretation Comments SODIUM (test code = NA) 137 mEq/L 134-147 N POTASSIUM (test code = 3.6 mEq/L 3.4-5.0 N K) CHLORIDE (test code = 105 mEq/L 100-108 N CL) CARBON DIOXIDE (test 24 mEq/l 21-33 N code = CO2) ANION GAP (test code = 11 0-20 N GAP) GLUCOSE (test code = 108 mg/dL 70-110 N GLU) BLOOD UREA NITROGEN 16 mg/dL 7-18 N (test code = BUN) GLOMERULAR FILTRATION 83.2 80-90 N Units of measure = RATE (test code = GFR) ml/mi n/1.73 m2 CREATININE (test code = 0.7 mg/dL 0.6-1.3 N CREAT) CALCIUM (test code = 8.9 mg/dL 8.0-10.5 N CA) [id number] 07:50:00 Test Item Value Reference Range Interpretation Comments MAGNESIUM (test code = MAG) 2.05 mg/dL 1.80-2.40 N CBC W/AUTO [id number] 07:43:00 Test Item Value Reference Range Interpretation Comments WHITE BLOOD CELL (test code = 6.6 x10 3/uL 4.5-11.0 N WBC) RED BLOOD CELL (test code = 2.76 x10 6/uL 3.54-5.02 L RBC) HEMOGLOBIN (test code = HGB) 8.3 g/dL 11.0-15.0 L HEMATOCRIT (test code = HCT) 24.5 % 33.0-45.0 L MEAN CELL VOLUME (test code = 88.8 fL 81.0-99.0 N MCV) MEAN CELL HGB (test code = MCH) 30.1 pg 27.0-33.0 N MEAN CELL HGB CONCETRATION 33.9 g/dL 33.0-37.0 N (test code = MCHC) RED CELL DISTRIBUTION WIDTH CV 15.3 % 11.5-14.5 H (test code = RDW) RED CELL DISTRIBUTION WIDTH SD 49.3 fL 37.0-54.0 N (test code = RDW-SD) PLATELET COUNT (test code = 346 x10 3/uL 150-400 N PLT) MEAN PLATELET VOLUME (test code 10.3 fL 7.0-9.0 H = MPV) NEUTROPHIL % (test code = NT%) 72.5 % 56.0-77.0 N IMMATURE GRANULOCYTE % (test 0.8 % 0.0-2.0 N code = IG%) LYMPHOCYTE % (test code = LY%) 12.5 % 14.0-32.0 L MONOCYTE % (test code = MO%) 10.7 % 4.8-9.0 H EOSINOPHIL % (test code = EO%) 3.2 % 0.3-3.7 N BASOPHIL % (test code = BA%) 0.3 % 0.0-2.0 N NUCLEATED RBC % (test code = 0.3 % 0-0 H NRBC%) NEUTROPHIL # (test code = NT#) 4.81 x10 3/uL 2.0-7.6 N IMMATURE GRANULOCYTE # (test 0.05 x10 3/uL 0.00-0.03 H code = IG#) LYMPHOCYTE # (test code = LY#) 0.83 x10 3/uL 1.0-3.8 L MONOCYTE # (test code = MO#) 0.71 x10 3/uL 0.1-0.8 N EOSINOPHIL # (test code = EO#) 0.21 x10 3/uL 0.0-0.2 H BASOPHIL # (test code = BA#) 0.02 x10 3/uL 0.0-0.2 N NUCLEATED RBC # (test code = 0.02 x10 3/uL 0.0-0.1 N NRBC#) MANUAL DIFF REQUIRED (test code NO = MDIFF) BASIC METABOLIC [id number] 20:57:00 Test Item Value Reference Range Interpretation Comments SODIUM (test code = NA) 133 mEq/L 134-147 L POTASSIUM (test code = 3.4 mEq/L 3.4-5.0 K) CHLORIDE (test code = 100 mEq/L 100-108 N CL) CARBON DIOXIDE (test 25 mEq/l 21-33 N code = CO2) ANION GAP (test code = 11 0-20 N GAP) GLUCOSE (test code = 126 mg/dL 70-110 H GLU) BLOOD UREA NITROGEN 19 mg/dL 7-18 H (test code = BUN) GLOMERULAR FILTRATION 83.2 80-90 N Units of measure = RATE (test code = GFR) ml/mi n/1.73 m2 CREATININE (test code = 0.7 mg/dL 0.6-1.3 N CREAT) CALCIUM (test code = 9.2 mg/dL 8.0-10.5 N CA) HGB [id number] 20:43:00 Test Item Value Reference Range Interpretation Comments HEMOGLOBIN (test code = HGB) 9.0 g/dL 11.0-15.0 L HEMATOCRIT (test code = HCT) 26.4 % 33.0-45.0 L GLUCOSE [id number] 20:09:00 Test Item Value Reference Range Interpretation Comments GLUCOSE BEDSIDE (test 123 MG/DL 70-110 H Perfor med by certified code = GLUBED) 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[place] GLUCOSE [id number] 16:09:00 Test Item Value Reference Range Interpretation Comments GLUCOSE BEDSIDE (test 141 MG/DL 70-110 H Perfor med by certified code = GLUBED) 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[place] GLUCOSE [id number] 11:48:00 Test Item Value Reference Range Interpretation Comments GLUCOSE BEDSIDE (test 133 MG/DL 70-110 H Perfor med by certified code = GLUBED) 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[place] GLUCOSE [id number] 09:41:00 Test Item Value Reference Range Interpretation Comments GLUCOSE BEDSIDE (test 120 MG/DL 70-110 H Perfor med by certified code = GLUBED) 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[place] COMPREHENSIVE METABOLIC [id number] 08:45:00 Test Item Value Reference Range Interpretation Comments SODIUM (test code = 131 mEq/L 134-147 L NA) POTASSIUM (test code = 2.8 mEq/L 3.4-5.0 LL Criti matty result K) called to [facility] .KM1 at 0845 12/23/21Nurse nargis zuñiga back resut and tech confirmed it's correct? YES CHLORIDE (test code = 100 mEq/L 100-108 N CL) CARBON DIOXIDE (test 23 mEq/l 21-33 N code = CO2) ANION GAP (test code = 11 0-20 N GAP) GLUCOSE (test code = 122 mg/dL 70-110 H GLU) BLOOD UREA NITROGEN 18 mg/dL 7-18 N (test code = BUN) GLOMERULAR FILTRATION 71.3 80-90 L Units of measure = RATE (test code = GFR) ml/mi n/1.73 m2 CREATININE (test code 0.8 mg/dL 0.6-1.3 N = CREAT) TOTAL PROTEIN (test 5.4 g/dL 6.4-8.2 L code = PROT) ALBUMIN (test code = 2.60 g/dL 3.4-5.0 L ALB) CALCIUM (test code = 8.3 mg/dL 8.0-10.5 N CA) BILIRUBIN TOTAL (test 0.60 mg/dL 0.0-1.0 N code = BILT) SGOT/AST (test code = 59 IUnit/L 15-37 H AST) SGPT/ALT (test code = 51 IUnit/L 30-65 N ALT) ALKALINE PHOSPHATASE 111 IUnit/L 20-125 N TOTAL (test code = ALKP) [id number] 08:45:00 Test Item Value Reference Range Interpretation Comments PHOSPHOROUS (test code = PHOS) 4.4 MG/DL 2.5-4.9 [id number] 08:45:00 Test Item Value Reference Range Interpretation Comments MAGNESIUM (test code = MAG) 1.84 mg/dL 1.80-2.40 CBC W/AUTO [id number] 07:15:00 Test Item Value Reference Range Interpretation Comments WHITE BLOOD CELL (test code = 6.3 x10 3/uL 4.5-11.0 N WBC) RED BLOOD CELL (test code = 2.35 x10 6/uL 3.54-5.02 L RBC) HEMOGLOBIN (test code = HGB) 7.1 g/dL 11.0-15.0 L HEMATOCRIT (test code = HCT) 20.5 % 33.0-45.0 L MEAN CELL VOLUME (test code = 87.2 fL 81.0-99.0 MCV) MEAN CELL HGB (test code = MCH) 30.2 pg 27.0-33.0 N MEAN CELL HGB CONCETRATION 34.6 g/dL 33.0-37.0 N (test code = MCHC) RED CELL DISTRIBUTION WIDTH CV 14.8 % 11.5-14.5 H (test code = RDW) RED CELL DISTRIBUTION WIDTH SD 47.6 fL 37.0-54.0 N (test code = RDW-SD) PLATELET COUNT (test code = 257 x10 3/uL 150-400 N PLT) MEAN PLATELET VOLUME (test code 10.2 fL 7.0-9.0 H = MPV) NEUTROPHIL % (test code = NT%) 72.6 % 56.0-77.0 N IMMATURE GRANULOCYTE % (test 1.0 % 0.0-2.0 N code = IG%) LYMPHOCYTE % (test code = LY%) 11.7 % 14.0-32.0 L MONOCYTE % (test code = MO%) 11.0 % 4.8-9.0 H EOSINOPHIL % (test code = EO%) 3.4 % 0.3-3.7 N BASOPHIL % (test code = BA%) 0.3 % 0.0-2.0 N NUCLEATED RBC % (test code = 0.3 % 0-0 H NRBC%) NEUTROPHIL # (test code = NT#) 4.55 x10 3/uL 2.0-7.6 N IMMATURE GRANULOCYTE # (test 0.06 x10 3/uL 0.00-0.03 H code = IG#) LYMPHOCYTE # (test code = LY#) 0.73 x10 3/uL 1.0-3.8 L MONOCYTE # (test code = MO#) 0.69 x10 3/uL 0.1-0.8 N EOSINOPHIL # (test code = EO#) 0.21 x10 3/uL 0.0-0.2 H BASOPHIL # (test code = BA#) 0.02 x10 3/uL 0.0-0.2 N NUCLEATED RBC # (test code = 0.02 x10 3/uL 0.0-0.1 N NRBC#) MANUAL DIFF REQUIRED (test code NO = MDIFF) GLUCOSE [id number] 20:09:00 Test Item Value Reference Range Interpretation Comments GLUCOSE BEDSIDE (test 119 MG/DL 70-110 H Perfor med by certified code = GLUBED) 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[place] GLUCOSE [id number] 17:03:00 Test Item Value Reference Range Interpretation Comments GLUCOSE BEDSIDE (test 129 MG/DL 70-110 H Perfor med by certified code = GLUBED) 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[place] GLU[place]SE [id number] 12:37:00 Test Item Value Reference Range Interpretation Comments GLUCOSE BEDSIDE (test 124 MG/DL 70-110 H Perfor med by certified code = GLUBED) 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 [facility] [id number] 11:02:00 Test Item Value Reference Range Interpretation Comments POTASSIUM (test code = 2.9 mEq/L 3.4-5.0 LL Criti matty result called K) to Rocky ROMEO [id number] a t 11012/22/21Nurse r ead back resut and tech confirmed it's correct? YES GLUCOSE [id number] 09:24:00 Test Item Value Reference Range Interpretation Comments GLUCOSE BEDSIDE (test 139 MG/DL 70-110 H Perfor med by certified code = GLUBED) 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 [facility] BASIC METABOLIC [id number] 08:29:00 Test Item Value Reference Range Interpretation Comments SODIUM (test code = NA) 130 mEq/L 134-147 L POTASSIUM (test code = 2.6 mEq/L 3.4-5.0 LL Criti matty result K) called to Rocky SEAY GCHRISTIANO HaqKM1 at 0829 2Nurse read back resut and tech confirmed it's correct? YES CHLORIDE (test code = 98 mEq/L 100-108 L CL) CARBON DIOXIDE (test 24 mEq/l 21-33 N code = CO2) ANION GAP (test code = 11 0-20 N GAP) GLUCOSE (test code = 129 mg/dL 70-110 H GLU) BLOOD UREA NITROGEN 15 mg/dL 7-18 N (test code = BUN) GLOMERULAR FILTRATION 62.3 80-90 L Units of measure = RATE (test code = GFR) ml/mi n/1.73 m2 CREATININE (test code = 0.9 mg/dL 0.6-1.3 N CREAT) CALCIUM (test code = 8.2 mg/dL 8.0-10.5 N CA) [id number] 08:29:00 Test Item Value Reference Range Interpretation Comments PHOSPHOROUS (test code = PHOS) 3.1 MG/DL 2.5-4.9 N [id number] 08:29:00 Test Item Value Reference Range Interpretation Comments MAGNESIUM (test code = MAG) 1.29 mg/dL 1.80-2.40 L CBC W/AUTO [id number] 08:11:00 Test Item Value Reference Range Interpretation Comments WHITE BLOOD CELL (test code = 8.8 x10 3/uL 4.5-11.0 N WBC) RED BLOOD CELL (test code = 2.36 x10 6/uL 3.54-5.02 L RBC) HEMOGLOBIN (test code = HGB) 7.0 g/dL 11.0-15.0 L HEMATOCRIT (test code = HCT) 21.3 % 33.0-45.0 L MEAN CELL VOLUME (test code = 90.3 fL 81.0-99.0 MCV) MEAN CELL HGB (test code = MCH) 29.7 pg 27.0-33.0 N MEAN CELL HGB CONCETRATION 32.9 g/dL 33.0-37.0 L (test code = MCHC) RED CELL DISTRIBUTION WIDTH CV 13.4 % 11.5-14.5 N (test code = RDW) RED CELL DISTRIBUTION WIDTH SD 43.9 fL 37.0-54.0 N (test code = RDW-SD) PLATELET COUNT (test code = 262 x10 3/uL 150-400 N PLT) MEAN PLATELET VOLUME (test code 10.5 fL 7.0-9.0 H = MPV) NEUTROPHIL % (test code = NT%) 79.6 % 56.0-77.0 H IMMATURE GRANULOCYTE % (test 0.7 % 0.0-2.0 N code = IG%) LYMPHOCYTE % (test code = LY%) 8.8 % 14.0-32.0 L MONOCYTE % (test code = MO%) 8.6 % 4.8-9.0 N EOSINOPHIL % (test code = EO%) 2.2 % 0.3-3.7 N BASOPHIL % (test code = BA%) 0.1 % 0.0-2.0 N NUCLEATED RBC % (test code = 0.0 % 0-0 N NRBC%) NEUTROPHIL # (test code = NT#) 7.03 x10 3/uL 2.0-7.6 N IMMATURE GRANULOCYTE # (test 0.06 x10 3/uL 0.00-0.03 H code = IG#) LYMPHOCYTE # (test code = LY#) 0.78 x10 3/uL 1.0-3.8 L MONOCYTE # (test code = MO#) 0.76 x10 3/uL 0.1-0.8 N EOSINOPHIL # (test code = EO#) 0.19 x10 3/uL 0.0-0.2 N BASOPHIL # (test code = BA#) 0.01 x10 3/uL 0.0-0.2 N NUCLEATED RBC # (test code = 0.00 x10 3/uL 0.0-0.1 N NRBC#) MANUAL DIFF REQUIRED (test code NO = MDIFF) GLUCOSE [id number] 23:16:00 Test Item Value Reference Range Interpretation Comments GLUCOSE BEDSIDE (test 120 MG/DL 70-110 H Perfor med by certified code = GLUBED) 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 [facility] GLUCOSE [id number] 16:31:00 Test Item Value Reference Range Interpretation Comments GLUCOSE BEDSIDE (test 200 MG/DL 70-110 H Perfor med by certified code = GLUBED) 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 [facility] - XR ABDOMEN 1V (KUB)2021-12-21 00:00:00 [facility] [place] : 1955 Sex: F FAX: Iggy Dumont MD [phone] [place]: St: [facility] FAX: Angela Diaz MD [phone] ------ Name: ARETHA MIRAMONTES [place] : 1955 Age/S: 66/F [address] [place] [address] Blvd Unit #: [id number] Loc: [address] [address] Phys: Iggy London MD Acct: [id number] Dis Date: Status: ADM IN PHONE #: [phone] Exam Date: 12/21/2021919 FAX #: [phone] Reason: abdominal pain EXAMS: CPT CODE: [id number] XR ABDOMEN 1V (KUB) [id number] PROCEDURE INFORMATION: Exam: XR Abdomen Exam date and time: 12/21/2021 9:11 AM Age: 66 years old Clinical indication: Abdominal pain TECHNIQUE: Imaging protocol: Radiologic exam of the abdomen. Views: Frontal supine view of the abdomen. 1 View. COMPARISON: CT ABD PELVIS W/O CONT 11/09/2018 6:20 PM FINDINGS: Intraperitoneal space: Benign appearance of the abdomen. There is no evidence of bowel obstruction or significant ileus. The bowel gas pattern is unremarkable. Bones/joints: Extensive postoperative changes involving the lumbar spine, status post multiple fusions from L2 through S1. Surgical skin flory are also noted. IMPRESSION: 1. Benign appearance of the abdomen. There is no evidence of bowel obstruction or significant ileus. The bowel gas pattern is unremarkable. 2. Extensive postoperative changes involving the lumbar spine, status post multiple fusions from L2 through S1. Surgical skin flory are also noted. at 0948 Reported and signed by: Pedro Mena M.D. 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 [facility] UA RFLX MICR CULT IF [id number] 17:56:00 Test Item Value Reference Range Interpretation Comments [...] UA PH DIPSTICK (test code = CHARLI) 5.0 5.0-7.0 N UA PROTEIN DIPSTICK (test code = NEGATIVE NEGATIVE PROU) UA UROBILINIOGEN DIPSTICK (test 0.2 mg/dL 0.2-1.0 code = URO) UA NITRITE DIPSTICK (test code = NEGATIVE NEGATIVE KATARZYNA) UA LEUKOCYTE ESTERASE DIPSTICK TRACE NEGATIVE A (test code = LEUU) UA WBC (test code = WBCU) 4-9 WBC/HPF 0-3 A UA RBC (test code = RBCU) 0-3 RBC/HPF 0-3 UA WBC NO REFLEX (test code = 4-9 WBC/HPF 0-3 A WBCUCL) UA BACTERIA (test code = BACU) TRACE /HPF NONE SEEN UA SQUAMOUS CELLS (test code = 0-5 /HPF NONE SEEN SQU) Cath type: Temporary/indwellingIN date: 12/18/21IN time: 825DC date: 12/19/21DC time: 629Elapse time: 22 Hrs 04 MinsIndication for culture: RiskForSepsis-no oth srcSpecimen Description: STRAIGHT CATHGLUCOSE [id number] 16:21:00 Test Item Value Reference Range Interpretation Comments GLUCOSE BEDSIDE (test 110 MG/DL 70-110 N Perfor med by certified code = GLUBED) 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 [facility] GLUCOSE [id number] 11:59:00 Test Item Value Reference Range Interpretation Comments GLUCOSE BEDSIDE (test 138 MG/DL 70-110 H Perfor med by certified code = GLUBED) 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 [facility] [id number] 11:15:00 Test Item Value Reference Range Interpretation Comments AMMONIA (test code = AMM) < 10 umol/L 11-35 L LACTIC [id number] 11:15:00 Test Item Value Reference Range Interpretation Comments LACTIC ACID (test code = LACT) 1.5 mmol/L 0.4-1.9 N HGBA1C%2021-12-20 08:38:00 Test Item Value Reference Range Interpretation Comments HGBA1C% (test code = HGBA1C%) > 13.0 %A1C 4.8-6.0 H BASIC METABOLIC [id number] 08:24:00 Test Item Value Reference Range Interpretation Comments SODIUM (test code = NA) 138 mEq/L 134-147 N POTASSIUM (test code = 3.8 mEq/L 3.4-5.0 N K) CHLORIDE (test code = 108 mEq/L 100-108 N CL) CARBON DIOXIDE (test 24 mEq/l 21-33 N code = CO2) ANION GAP (test code = 10 0-20 N GAP) GLUCOSE (test code = 126 mg/dL 70-110 H GLU) BLOOD UREA NITROGEN 19 mg/dL 7-18 H (test code = BUN) GLOMERULAR FILTRATION 71.3 80-90 L Units of measure = RATE (test code = GFR) ml/mi n/1.73 m2 CREATININE (test code = 0.8 mg/dL 0.6-1.3 N CREAT) CALCIUM (test code = 9.0 mg/dL 8.0-10.5 N CA) [id number] 08:24:00 Test Item Value Reference Range Interpretation Comments PHOSPHOROUS (test code = PHOS) 2.9 MG/DL 2.5-4.9 N [id number] 08:24:00 Test Item Value Reference Range Interpretation Comments MAGNESIUM (test code = MAG) 1.63 mg/dL 1.80-2.40 L THYROID STIMULATING [id number] 08:24:00 Test Item Value Reference Range Interpretation Comments THYROID STIMULATING 1.08 0.42-5.47 N Results in HORMONE (test code = TSH) mi lli-International Units/mL GLUCOSE [id number] 08:18:00 Test Item Value Reference Range Interpretation Comments GLUCOSE BEDSIDE (test 143 MG/DL 70-110 H Perfor med by certified code = GLUBED) 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 [facility] CBC W/AUTO [id number] 07:25:00 Test Item Value Reference Range Interpretation Comments WHITE BLOOD CELL (test code = 13.3 x10 3/uL 4.5-11.0 H WBC) RED BLOOD CELL (test code = 2.43 x10 6/uL 3.54-5.02 L RBC) HEMOGLOBIN (test code = HGB) 7.4 g/dL 11.0-15.0 L HEMATOCRIT (test code = HCT) 23.0 % 33.0-45.0 L MEAN CELL VOLUME (test code = 94.7 fL 81.0-99.0 N MCV) MEAN CELL HGB (test code = 30.5 pg 27.0-33.0 N MCH) MEAN CELL HGB CONCETRATION 32.2 g/dL 33.0-37.0 L (test code = MCHC) RED CELL DISTRIBUTION WIDTH CV 13.7 % 11.5-14.5 N (test code = RDW) RED CELL DISTRIBUTION WIDTH SD 47.6 fL 37.0-54.0 N (test code = RDW-SD) PLATELET COUNT (test code = 180 x10 3/uL 150-400 N PLT) MEAN PLATELET VOLUME (test 10.9 fL 7.0-9.0 H code = MPV) NEUTROPHIL % (test code = NT%) 84.7 % 56.0-77.0 H IMMATURE GRANULOCYTE % (test 0.6 % 0.0-2.0 N code = IG%) LYMPHOCYTE % (test code = LY%) 5.2 % 14.0-32.0 L MONOCYTE % (test code = MO%) 8.9 % 4.8-9.0 N EOSINOPHIL % (test code = EO%) 0.5 % 0.3-3.7 N BASOPHIL % (test code = BA%) 0.1 % 0.0-2.0 N NUCLEATED RBC % (test code = 0.0 % 0-0 N NRBC%) NEUTROPHIL # (test code = NT#) 11.29 x10 3/uL 2.0-7.6 H IMMATURE GRANULOCYTE # (test 0.08 x10 3/uL 0.00-0.03 H code = IG#) LYMPHOCYTE # (test code = LY#) 0.69 x10 3/uL 1.0-3.8 L MONOCYTE # (test code = MO#) 1.19 x10 3/uL 0.1-0.8 H EOSINOPHIL # (test code = EO#) 0.07 x10 3/uL 0.0-0.2 N BASOPHIL # (test code = BA#) 0.02 x10 3/uL 0.0-0.2 N NUCLEATED RBC # (test code = 0.00 x10 3/uL 0.0-0.1 N NRBC#) MANUAL DIFF REQUIRED (test NO code = MDIFF) - CT HEAD/BRAIN W/O [id number] 00:00[facility]00 [facility] 1955 Sex: F Name: ARETHA MIRAMONTES [facility] : 1955 Age/S: 66 / F [address] [place] [address] Unit #: [id number] Loc: [place] [address] Phys: Iggy London MD Acct: [id number] Dis Date: Status:ADM IN PHONE #: [phone] Exam Date: 12/20/2021 0933 FAX #: [phone] Reason: mental status changes EXAMS: CPT CODE: [id number] CT HEAD/BRAIN W/O CONT [id number] PROCEDURE INFORMATION: Exam: CT Head Without Contrast Exam date and time: 12/20/2021 9:30 AM Age: 66 years old Clinical indication: Altered mental status/memory loss; Additional info: Mental status changes TECHNIQUE: Imaging protocol: Computed tomography of the head without contrast. Radiation optimization: All CT scans at this facility use at least one of these dose optimization techniques: automated exposure control; mA and/or kV adjustment per patient size (includes targeted exams where dose is matched to clinical indication); or iterative reconstruction. COMPARISON: No relevant prior studies available. FINDINGS: Limitations: Satisfactory image quality. Brain: Maintained kinsey-white differentiation. No hemorrhage, midline shift nor abnormal extra-axial fluid collection. Cerebral ventricles: Midline in position. Unremarkable caliber. Diffuse overlying sulcal widening Paranasal sinuses: Extensive mucosal inflammation in left sphenoid sinus.. Mastoid air cells: Visualized mastoid air cells are well aerated. Bones/joints: No acute fracture. Soft tissues: Unremarkable. IMPRESSION: No acute intracranial process nor bony injury. Mild parenchymal atrophy Extensive mucosal inflammation in left sphenoid sinus at 1043 Reported and signed by: Froylan Mejias M.D. CC: Leonard London MD; Angela Vang MD Technologist:Lara Chen, RT(MR)(CT); CTDI: DLP: Trnscb Date/Time: 12/20/2021 (1042) t.[email or web address].[email or web address] Orig Print D/T: S: 12/20/2021 (1042) PAGE 1 Signed Report- XR CHEST 1 [id number] 00:00:00 [facility] : 1955 Sex: F FAX: Iggy Dumont MD [phone] [place]: St: [facility] FAX: Angela Diaz MD [phone] ----- Name: ARETHA MIRAMONTES [facility] : 1955 Age/S: 66/F [address] [place] [address] Unit #: [id number] Loc: [place] [address] Phys: Iggy London MD Acct: [id number] Dis Date: Status: ADM IN PHONE #: [phone] Exam Date: 12/20/2021 0910 FAX #: [phone] Reason: mental status changes EXAMS: CPT CODE: [id number] XR CHEST 1 V [id number] PROCEDURE INFORMATION: Exam: XR Chest Exam date and time: 12/20/2021 8:20 AM Age: 66 years old Clinical indication: Other: Mental status changes TECHNIQUE: Imaging protocol: Radiologic exam of the chest. Views: 1 view. COMPARISON: CR XR CHEST 2 V 12/09/2021 4:49 PM FINDINGS: Tubes, catheters and devices: None. Lungs: Linear density identified within right lower lung. Possible atelectasis or scarring. Lung volumes are decreased. Pleural spaces: Unremarkable. No pleural effusion. No pneumothorax. Heart/Mediastinum: Mediastinum and vini appear unremarkable. Vasculature: Mild atherosclerotic calcification demonstrated within the aorta. Bones/joints: Diffusely decreased bone density. Mild generalized bony degenerative changes. Bony structures appear otherwise unremarkable. Soft tissues: This study is limited by patient's body habitus. IMPRESSION: 1. Linear right lower chest pulmonary atelectasis or scarring. Decreased lung volumes. 2. Chronic findings. at 1046 Reported and signed by: Ramon Chen M.D. 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 [facility] GLUCOSE [id number] 16:20:00 Test Item Value Reference Range Interpretation Comments GLUCOSE BEDSIDE (test 136 MG/DL 70-110 H Perfor med by certified code = GLUBED) 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 [facility] GLUCOSE [id number] 12:44:00 Test Item Value Reference Range Interpretation Comments GLUCOSE BEDSIDE (test 154 MG/DL 70-110 H Perfor med by certified code = GLUBED) 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 [facility] - XR FLUOROSCOPY 0-60 [id number] 00:00:00 [facility] : 1955 Sex: F FAX: Iggy Dumont MD [phone] [place]: St: [facility] FAX: Angela Diaz MD [phone] ------ [facility] 1955 Age/S: 66/F [address] [place] [address] Unit #: [id number] Loc: [address] [address] Phys: Iggy London MD Acct: [id number] Dis Date: Status: ADM IN PHONE #: [phone] Exam Date: 12/18/2021 [facility] FAX #: [phone] Reason: LUMBAR SPINAL STENOSIS, SPONDYLOLISTHESIS, RADI EXAMS: CPT CODE: [id number] XR FLUOROSCOPY 0-60 MIN 05715 PROCEDURE INFORMATION: Exam: FL Fluoroscopy, Up to 1 Hour Physician Time; Radiologist Not Present For Fluoroscopy Exam date and time: 12/18/2021 11:37 AM Age: 66 years old Clinical indication: Symptoms: Lumbar spinal stenosis, spondylolisthesis, radiculopathy @ l2-s1 TECHNIQUE: Imaging protocol: Fluoroscopy , up to 1 hour physician or other qualified health child care assistant time. This radiologist did not supervise this procedure. Exam supervised by facility personnel. Report for radiation dosage reporting and documentation only. Othertechnique: Radiologist was not present during this procedure. COMPARISON: No relevant prior studies available. RADIATION DOSE METRICS: Fluoroscopy time (seconds): seconds= 8.07 Number of fluoro spot images: images= 2437 Reference air kerma (NAWAF): 12.97 mGy FINDINGS: Procedural imaging: Fluoroscopic assistance was provided. Radiologist was not present during the procedure. Intraoperative review of these images was performed by the operating physician. Please refer to the procedure report for further details. Notes: Fluoroscopy supervised by facility personnel. See also separate procedure report. IMPRESSION: Fluoroscopy dosage documentation. See also separate procedure notes. at 0710 Reported and signed by: Ramon Chen M.D. CC: Iggy London MD; Angela Vang MD Technologist: Boone Salinas, RT(R); RT Alessia(R) Trnscrd Date/Time/By: 12/19/2021 (709) : By: [email or web address] [facility] Print D/T: S: 12/19/2021 (709) PAGE 1 Signed Report- XR FLUOROSCOPY 0-60 MIN 2021-12-19 00:00:00 [facility]IRAMONTESNIKHILNic [place] : 1955 Sex: F FAX: Iggy Dumont MD [phone] [place]: St: ADM FAX: Angela Diaz MD [phone] ------ Name: ARETHA MIRAMONTES : 1955 Age/S: 66/F [address] [place] [address] Unit #: [id number] Loc: [address] [address] Phys: Iggy London MD Acct: [id number] Dis Date: Status: ADM IN PHONE #: [phone] Exam Date: 12/18/2021 1557 FAX #: [phone] Reason: LUMBAR STENOSIS, SPONDYLOLISTHESIS, RADICULOPAT EXAMS: CPT CODE: [id number] XR FLUOROSCOPY 0-60 MIN 37248 PROCEDURE INFORMATION: Exam: FL Fluoroscopy, Up to 1 Hour Physician Time; Radiologist Not Present For Fluoroscopy Exam date and time: 12/18/2021 9:43 AM Age: 66 years old Clinical indication: Symptoms: Lumbar stenosis, spondylolisthesis, radiculopathy l2-s1 TECHNIQUE: Imaging protocol: Fluoroscopy , up to 1 hour physician or other qualified health child care assistant time. This radiologist did not supervise this procedure. Exam supervised by facility personnel. Report for radiation dosage reporting and documentation only. Other technique:Radiologist was not present during this procedure. COMPARISON: No relevant prior studies available. R ADIATION DOSE METRICS: Fluoroscopy time (seconds): seconds= 156.3 Number of fluoro spot images: images= 13 Reference air kerma (NAWAF): 115.33 mGy FINDINGS: Procedural imaging: Fluoroscopic assistance was provided. Radiologist was not present during the procedure. Intraoperative review of these images was performed by the operating physician. Please refer to the procedure report for further details. Notes: Fluoroscopy supervised by facility personnel. See also separate procedure report. IMPRESSION: Fluoroscopy dosage documentation. See also separate procedure notes. at 0710 Reported and signed by: Ramon Chen M.D. 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[place] POC ARTERIAL BLOOD [id number] 15:43:00 Test Item Value Reference Range Interpretation Comments POC ARTERIAL BLOOD GAS PH (test 7.370 7.35-7.45 N code = POCPHA) POC ARTERIAL BLOOD GAS PCO2 (test 37.8 mmHg 35.0-45 N code = [id number]) POC TCO2 ARTERIAL (test code = 23.1 POCTCO2) POC ARTERIAL BLOOD GAS PO2 (test 203.6 mmHg 80-100.0 HH code = YVAEF2M) POC HCO3 ARTERIAL (test code = 21.9 MMOL/L 22.0-26.0 L [id number]) POC BASE EXCESS (test code = -3.1 MMOL/L -4.0-4.0 N POCBEA) POC O2 SATURATION (test code = 99.7 % 90-100 N POCO2S) ABG TEMPERATURE (test code = 37.3 F TEMPA) BASIC METABOLIC [id number] 15:43:00 Test Item Value Reference Range Interpretation Comments SODIUM (test code = NA/ABG) 138 MEQ/L 134-147 N POTASSIUM (test code = K/ABG) 4.5 MEQ/L 3.4-5.0 N CHLORIDE (test code = CL/ABG) 108 MEQ/L 100-108 N CREATININE ABG (test code = 1.1 mg/dL 0.6-1.0 H CREAABG) POC IONIZED CALCIUM (test code = 1.32 MMOL/L 1.12-1.32 N POCCA) POC GLUCOSE (test code = POCGLU) 136 MG/DL 70-110 H HEMOGLOBIN [id number] 15:43:00 Test Item Value Reference Range Interpretation Comments HEMOGLOBIN ABG (test code = HGB/ABG) 9.2 G/DL 11.0-15.0 L [id number] 15:43:00 Test Item Value Reference Range Interpretation Comments HEMATOCRIT (test code = HCT/ABG) 27 % 33.0-45.0 L POC ARTERIAL BLOOD [id number] 15:35:00 Test Item Value Reference Range Interpretation Comments POC ARTERIAL BLOOD GAS PH (test 7.378 7.35-7.45 N code = POCPHA) POC ARTERIAL BLOOD GAS PCO2 (test 36.5 mmHg 35.0-45 N code = MDIENG1Q) POC TCO2 ARTERIAL (test code = 22.6 POCTCO2) POC ARTERIAL BLOOD GAS PO2 (test 219.8 mmHg 80-100.0 HH code = NBWJY1N) POC HCO3 ARTERIAL (test code = 21.5 MMOL/L 22.0-26.0 L [id number]) POC BASE EXCESS (test code = -3.3 MMOL/L -4.0-4.0 N POCBEA) POC O2 SATURATION (test code = 99.8 % 90-100 N POCO2S) ABG TEMPERATURE (test code = 36.8 F TEMPA) BASIC METABOLIC [id number] 15:35:00 Test Item Value Reference Range Interpretation Comments SODIUM (test code = NA/ABG) 139 MEQ/L 134-147 N POTASSIUM (test code = K/ABG) 4.3 MEQ/L 3.4-5.0 N CHLORIDE (test code = CL/ABG) 105 MEQ/L 100-108 N CREATININE ABG (test code = 1.2 mg/dL 0.6-1.0 H CREAABG) POC IONIZED CALCIUM (test code = 1.11 MMOL/L 1.12-1.32 L POCCA) POC GLUCOSE (test code = POCGLU) 128 MG/DL 70-110 H HEMOGLOBIN [id number] 15:35:00 Test Item Value Reference Range Interpretation Comments HEMOGLOBIN ABG (test code = HGB/ABG) 8.5 G/DL 11.0-15.0 L [id number] 15:35:00 Test Item Value Reference Range Interpretation Comments HEMATOCRIT (test code = HCT/ABG) 25 % 33.0-45.0 L GLUCOSE [id number] 08:11:00 Test Item Value Reference Range Interpretation Comments GLUCOSE BEDSIDE (test 132 MG/DL 70-110 H [facility] med by certified code = GLUBED) 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 [facility] BASIC METABOLIC [id number] 07:16:00 Test Item Value Reference Range Interpretation Comments SODIUM (test code = NA) 137 mEq/L 134-147 N POTASSIUM (test code = 4.4 mEq/L 3.4-5.0 N K) CHLORIDE (test code = 103 mEq/L 100-108 N CL) CARBON DIOXIDE (test 27 mEq/l 21-33 N code = CO2) ANION GAP (test code = 11 0-20 N GAP) GLUCOSE (test code = 122 mg/dL 70-110 H GLU) BLOOD UREA NITROGEN 25 mg/dL 7-18 H (test code = BUN) GLOMERULAR FILTRATION 55.1 80-90 L Units of measure = RATE (test code = GFR) ml/mi n/1.73 m2 CREATININE (test code = 1.0 mg/dL 0.6-1.3 N CREAT) CALCIUM (test code = 9.9 mg/dL 8.0-10.5 N CA) UA RFLX MICR CULT IF [id number] 06:39:00 Test Item Value Reference Range Interpretation Comments UA COLOR (test code = COLU) STRAW YEL/STRAW UA APPEARANCE (test code = CLEAR CLEAR APPU) UA GLUCOSE DIPSTICK (test NEGATIVE NEGATIVE code = DGLUU) UA BILIRUBIN DIPSTICK (test NEGATIVE NEGATIVE code = BILU) UA KETONE DIPSTICK (test NEGATIVE NEGATIVE code = KETU) UA SPECIFIC GRAVITY (test 1.005 1.005-1.030 N code = SGU) UA BLOOD DIPSTICK (test NEGATIVE NEGATIVE code = MELINDA) UA PH DIPSTICK (test code = 5.0 5.0-7.0 N CHARLI) UA PROTEIN DIPSTICK (test NEGATIVE NEGATIVE code = PROU) UA UROBILINIOGEN DIPSTICK 0.2 mg/dL 0.2-1.0 (test code = URO) UA NITRITE DIPSTICK (test NEGATIVE NEGATIVE code = KATARZYNA) UA LEUKOCYTE ESTERASE NEGATIVE NEGATIVE DIPSTICK (test code = LEUU) UA WBC (test code = WBCU) 0-3 WBC/HPF 0-3 UA RBC (test code = RBCU) NONE SEEN RBC/HPF 0-3 UA WBC NO REFLEX (test code 0-3 WBC/HPF 0-3 = WBCUCL) UA BACTERIA (test code = NONE SEEN /HPF NONE SEEN BACU) UA SQUAMOUS CELLS (test NONE SEEN /HPF NONE SEEN code = SQU) Indication for culture: Gross HematuriaSpecimen Description: STRAIGHT CATH- XR CHEST 2 [id number] 00:00:00 [facility] : 1955 Sex: F FAX: Angela Diaz MD [phone] [place]: St: PRE Name: NIKHIL MIRAMONTESNic SHEL[facility] : 1955 Age/S:66/F [address] [place] [address] Unit #: [id number] Loc: [place] [address] Phys: Angela Vang MD Acct: [id number] Dis Date: Status: PRE IN PHONE #: [phone] Exam Date: 12/09/2021 1650 FAX #: [phone] Reason: PAT EXAMS: CPT CODE: [id number] XR CHEST 2 V [id number] PROCEDURE INFORMATION: Exam: XRChest Exam date and time: 12/09/2021 4:49 PM Age: 66 years old Clinical indication: Screening exam; Pre-operative exam; Cardiovascular screening; Additional info: Pat TECHNIQUE: Imaging protocol: Radiologic exam of the chest. Views: 2 views. PA and Lateral COMPARISON: No relevant prior studies available. FINDINGS: Lungs: There are normal lung volumes without consolidation or interstitial oppacities. Pleural spaces: No pleural effusion. No pneumothorax. Heart/Mediastinum: The heart size is normal. Bones/joints: No acute abnormality. IMPRESSION: No acute cardiopulmonary process. at 0657 Reported and signed by: Orlando Lorenzo M.D. CC: Angela Vang MD Technologist: RT Jewel(Nargis) Trnscrd Date/Time/By: 12/10/2021 (0657) : By: [email or web address] Orig Print D/T: S: 12/10/2021 (0657) PAGE 1 Signed ReportCOMPREHENSIVE METABOLIC [id number] 16:26:00 Test Item Value Reference Range Interpretation Comments SODIUM (test code = NA) 138 mEq/L 134-147 N POTASSIUM (test code = 3.8 mEq/L 3.4-5.0 N K) CHLORIDE (test code = 104 mEq/L 100-108 N CL) CARBON DIOXIDE (test 28 mEq/l 21-33 N code = CO2) ANION GAP (test code = 10 0-20 N GAP) GLUCOSE (test code = 103 mg/dL 70-110 N GLU) BLOOD UREA NITROGEN 20 mg/dL 7-18 H (test code = BUN) GLOMERULAR FILTRATION 62.3 80-90 L Units of measure = RATE (test code = GFR) ml/mi n/1.73 m2 CREATININE (test code = 0.9 mg/dL 0.6-1.3 N CREAT) TOTAL PROTEIN (test 6.9 g/dL 6.4-8.2 N code = PROT) ALBUMIN (test code = 4.10 g/dL 3.4-5.0 N ALB) CALCIUM (test code = 9.8 mg/dL 8.0-10.5 N CA) BILIRUBIN TOTAL (test 0.50 mg/dL 0.0-1.0 N code = BILT) SGOT/AST (test code = 28 IUnit/L 15-37 N AST) SGPT/ALT (test code = 26 IUnit/L 30-65 L ALT) ALKALINE PHOSPHATASE 87 IUnit/L 20-125 N TOTAL (test code = ALKP) PROTHROMBIN [id number] 16:20:00 Test Item Value Reference Range Interpretation Comments PROTHROMBIN TIME 11.3 SECONDS 9.3-12.9 N PATIENT (test code = PTP) INTERNATIONAL NORMAL 1.0 0.8-1.2 N TARGET INR BY RATIO (test code = INDICATIO N Indication INR) INR1. Prophylax is of venous thrombos is 2.0 - 3.0 (orthoped ic surgery), Proph ylaxis of venous throm bosis (other than hig h-risk surgery), Treat ment of Deep Vein Thrombosis/Pulm onary Embolism, Preve ntion of systemic emb olism - Tissue heart va lves, Acute Myocardia l Infarction (to prevent systemic emboli sm), Valvular heart disease, Atrial Fibrillation, Bileaflet mecha nical valve in aortic position.2. Mec hanical prosthetic valv es (high risk), 2. 5 - 3.5 Presence of Lup us Anticoagulant o r Antiphospholipi d Antibodies, Pre vention of systemic emb olism - Acute Myocardia l Infarction (to prevent recurrent infar ct). THROMBOPLASTIN TIME [id number] 16:20:00 Test Item Value Reference Range Interpretation Comments THROMBOPLASTIN TIME 27.4 Seconds 25.0-39.5 N Therape utic Range: PARTIAL (test code = 50.4 - 88.3 Seconds PTT) Effective 08/30/2018 URINALYSIS [id number] 16:17:00 Test Item Value Reference Range Interpretation Comments UA COLOR (test code = COLU) YELLOW YEL/STRAW UA APPEARANCE (test code = SL CLOUDY CLEAR APPU) UA GLUCOSE DIPSTICK (test code NEGATIVE NEGATIVE = DGLUU) UA BILIRUBIN DIPSTICK (test NEGATIVE NEGATIVE code = BILU) UA KETONE DIPSTICK (test code = NEGATIVE NEGATIVE KETU) UA SPECIFIC GRAVITY (test code 1.014 1.005-1.030 N = SGU) UA BLOOD DIPSTICK (test code = NEGATIVE NEGATIVE MELINDA) UA PH DIPSTICK (test code = 7.0 5.0-7.0 N CHARLI) UA PROTEIN DIPSTICK (test code NEGATIVE NEGATIVE = PROU) UA UROBILINIOGEN DIPSTICK (test 0.2 mg/dL 0.2-1.0 code = URO) UA NITRITE DIPSTICK (test code NEGATIVE NEGATIVE = KATARZYNA) UA LEUKOCYTE ESTERASE DIPSTICK 2+ NEGATIVE A (test code = LEUU) UA RBC (test code = RBCU) 0-3 RBC/HPF 0-3 UA WBC NO REFLEX (test code = 21-50 WBC/HPF 0-3 A WBCUCL) UA BACTERIA (test code = BACU) 1+ /HPF NONE SEEN A UA SQUAMOUS CELLS (test code = 0-5 /HPF NONE SEEN SQU) UA MUCUS (test code = MUCU) TRACE /LPF NONE SEEN CBC W/AUTO [id number] 16:10:00 Test Item Value Reference Range Interpretation Comments WHITE BLOOD CELL (test code = 5.2 x10 3/uL 4.5-11.0 N WBC) RED BLOOD CELL (test code = 4.35 x10 6/uL 3.54-5.02 N RBC) HEMOGLOBIN (test code = HGB) 12.7 g/dL 11.0-15.0 N HEMATOCRIT (test code = HCT) 39.2 % 33.0-45.0 N MEAN CELL VOLUME (test code = 90.1 fL 81.0-99.0 N MCV) MEAN CELL HGB (test code = MCH) 29.2 pg 27.0-33.0 N MEAN CELL HGB CONCETRATION 32.4 g/dL 33.0-37.0 L (test code = MCHC) RED CELL DISTRIBUTION WIDTH CV 14.0 % 11.5-14.5 N (test code = RDW) PLATELET COUNT (test code = 246 x10 3/uL 150-400 N PLT) NEUTROPHIL % (test code = NT%) 60.6 % 56.0-77.0 N LYMPHOCYTE % (test code = LY%) 27.5 % 14.0-32.0 N NEUTROPHIL # (test code = NT#) 3.17 x10 3/uL 2.0-7.6 N LYMPHOCYTE # (test code = LY#) 1.44 x10 3/uL 1.0-3.8 N MANUAL DIFF REQUIRED (test code NO = MDIFF) RED CELL DISTRIBUTION WIDTH SD 46.3 fL 37.0-54.0 N (test code = RDW-SD) MEAN PLATELET VOLUME (test code 9.9 fL 7.0-9.0 H = MPV) IMMATURE GRANULOCYTE % (test 0.4 % 0.0-2.0 N code = IG%) MONOCYTE % (test code = MO%) 9.4 % 4.8-9.0 H EOSINOPHIL % (test code = EO%) 1.5 % 0.3-3.7 N BASOPHIL % (test code = BA%) 0.6 % 0.0-2.0 N NUCLEATED RBC % (test code = 0.0 % 0-0 N NRBC%) IMMATURE GRANULOCYTE # (test 0.02 x10 3/uL 0.00-0.03 N code = IG#) MONOCYTE # (test code = MO#) 0.49 x10 3/uL 0.1-0.8 N EOSINOPHIL # (test code = EO#) 0.08 x10 3/uL 0.0-0.2 N BASOPHIL # (test code = BA#) 0.03 x10 3/uL 0.0-0.2 N NUCLEATED RBC # (test code = 0.00 x10 3/uL 0.0-0.1 N NRBC#) Hemoglobin [id number] 14:53:00 Test Item Value Reference Interpretation Comments Range Hemoglobin A1C See_Comment H For someone w ithout (test code = known diabetes, a 4548-4) hemoglobin A1c value between 5.7% an d 6.4% is consist ent withprediabetes and should be confi rmed with a follow-u p test. For someo ne with known diab etes, a value <7%indicates that their diabetes is well controlled . B7tuxaexvb shou ld be individualized based on duration ofdiabetes, age , comorbid condit ions, and otherconsiderat ions. This assay resu lt is consistent with an increased risko f diabetes. Curre ntly, no consensus ex ists regarding use ofhemoglobin A1 c for diagnosis of diabetes for children. [Auto mated message] The sy stem which generated this result transmit jc reference range : <5.7 % of total Hgb. The reference r jacinda was not used to interpret this result as normal/abnormal . RAC (test code = Performing RAC) Organization Information: Site ID: ITZEL Name: [facility] Address: [address] [place] [address] Director: Flavio Yo Lab Interpretation Abnormal (test code = 73689-4) [facility] metabolic [id number] 09:44:00 Test Item Value Reference Interpretation Comments Range Glucose (test 90 mg/dL 65-99 Fasting refe rence code = 2345-7) interval BUN (test code = 19 mg/dL 7-25 3094-0) Creatinine (test 0.87 mg/dL 0.5-0.99 For patient s >49 code = 2160-0) years of age, the reference limit for Creatinine is approximately 1 3% higher for peopleidentifie d as -Kasie n. EGFR Non-Afr. See_Comment [Automated me ssage] [place] Korean (test The system ich code = 2775) generated this result transmitted ref erence range: > OR = 6 0 mL/min/1.73m2. The reference range was not used to int erpret this result as normal/abnormal . EGFR See_Comment [Automated mes pia] [place] Korean (test The system ich code = 2774) generated this result transmitted ref erence range: > OR = 6 0 mL/min/1.73m2. The reference range was not used to int erpret this result as normal/abnormal . BUN/creatinine NOT APPLICABLE See_Comment [Automated message] ratio (test code The system which = 3097-3) generated this result transmitted ref erence range: 6 - 22 ( calc). The reference r jacinda was not used to interpret this result as normal/abnor mal. Sodium (test code 141 mmol/L 135-146 = 2951-2) Potassium (test 5.1 mmol/L 3.5-5.3 code = 2823-3) Chloride (test 106 mmol/L 98-110 code = 5-0) CO2 (test code = 28 mmol/L 20-32 2027-) Calcium (test 9.6 mg/dL 8.6-10.4 code = 81993-9) Protein (test 6.3 g/dL 6.1-8.1 code = 2885-2) Albumin, S (test 3.8 g/dL 3.6-5.1 code = 1751-7) Globulin, total See_Comment [Automated message] (test code = [place] [address]-2) generated this result transmitted ref erence range: 1.9 - 3. 7 g/dL (calc). The ref erence range was not u sed to interpret this result as normal/abnor mal. Albumin/globulin See_Comment [Automated message] ratio (test code The system which = 1759-0) generated this result transmitted ref erence range: 1.0 - 2. 5 (calc). The ref erence range was not u sed to interpret this result as normal/abnor mal. Total bilirubin 0.4 mg/dL 0.2-1.2 (test code = 1974-2) Alkaline 122 U/L 37-153 phosphatase (test code = 6768-6) AST (test code = 22 U/L 10-35 1919-8) ALT (test code = 16 U/L -1741-6) RAC (test code = Performing RAC) Organization Information: Site ID: RGA Name: [facility] Address: [address] [place], [place] [address] Director: Flavio Yo [facility] HospitalLipid [id number] 06:43:00 Test Item Value Reference Range Interpretation Comments Cholesterol, total 135 mg/dL See_Comment [Automat ed (test code = 2092-) message ] The system which generated this result transmitted reference range : <=200. The reference range was not used to interpret this result as normal/abnormal . HDL cholesterol 38 mg/dL See_Comment L [Automated (test code = 2085-01) message ] The system which generated this result transmitted reference range : > OR = 50. The reference range was not used to interpret this result as normal/abnormal . Triglycerides (test 102 mg/dL See_Comment [Automa jc code = 2571-8) message] The system which generated this result transmitted reference range : <=150. The reference range was not used to interpret this result as normal/abnormal . LDL cholesterol mg/dL (calc) Reference ra nge: calculated (test <100 Desira ble code = 24083-8) range <100 m g/dL for primary prevention; <70 mg/dL for patients with C HD or diabetic patients with > or = 2 CHD risk factors. LDL-C is now calculated using the Garth-Emeka calculation, which is a validated novel method providin g better accuracy than the Friedewald equation in the estimation of LDL-C. Garth S S et al. DENISE. 2013;310(19): 4167-3750 (http://educati on .LayerVault .com/faq/ISG111 ) Cholesterol/HDL See_Comment [Automated ratio (test code = message] The 9830-1) system which generated this result transmitted reference range : <5.0 (calc). Th e reference range was not used to interpret this result as normal/abnormal . Non-HDL cholesterol See_Comment For eduarda ents with (test code = diabetes plus 1 16738-4) major ASCVD ris k factor, treatin g to a non-HDL-C goal of <100 mg/dL (LDL-C of <70 mg/dL) is considered a therapeutic option. [Automated message] The system which generated this result transmitted reference range : <130 mg/dL (calc). The reference range was not used to interpret this result as normal/abnormal . AJIT (test code = FASTING:YES AJIT) FASTING: YES RAC (test code = Performing RAC) Organization Information: Site ID: RGA Name: [facility] Lab Address: [address] [place] [address] Director: Flavio Yo Lab Interpretation Abnormal (test code = 35397-0) [facility] Pre/Post [id number] 21:59:13 Test Item Value Reference Range Interpretation Comments Ventricular rate (test code = 253) Atrial rate (test code = 255) NH interval (test code = 266) QRSD interval (test code = 260) QT interval (test code = 264) QTC interval (test code = 265) P axis 1 (test code = 267) QRS axis 1 (test code = 268) T wave axis (test code = 270) EKG impression (test Normal sinus code = 273) rhythm-Normal ECG-In automated comparison with ECG of 13-JUN-2020 07:44,-No significant change was found- [facility] [id number] 13:38:00 Test Item Value Reference Range Interpretation Comments POC glucose (test code = 116 mg/dL 65-99 H Ope rator Name: 27847-2) Mauricio Nathaniel on IIIDevice ID: [id number] Lab Interpretation (test Abnormal code = 62948-9) [facility] glycosylated hemoglobin (Hb A1C)2021-08-07 18:50:00 Test Item Value Reference Range Interpretation Comments POC Hemoglobin A1C (test code = 6.1 % 3039614) [facility] HospitalToxASSURE [facility] ([facility])2021-07-07 22:08:00 Test Item Value Reference Interpretation Comments Range Result FINAL summary (test code = ===TOXASSU 48029-0) RE SELECT 13 (MW) =======Meagan t Result Flag U nits Drug Present Carboxy -THC 100 ng/mg creat Car boxy-THC is a metabolite of tetrahydrocanna binol (THC). Source o f THC is most commonly h erbal marijuana or marijuana-based products, but THC is also present in a scheduled prescription me dication. Trace amounts o f THC can be present in h emp and cannabidiol (CB D) products. This test is not intended to distinguish bet ween godyv-8-jgmedtw drocannabi nol, the predom inant form of THC in most herbal or marijuana-based products, and okcsw-3-qbkalpj drocannabi nol. ===Test Result Flag Uni ts Ref Range Creatinin e 66 mg/dL >=20 =======Dec lared Medicatio ns: Medication list was not provided.====== ==For clinical consultation, bambi patricio call .====== == AJIT (test Performed at: 01 - code = AJIT) [facility]am[facility] [address] [place] [id number] Director: [facility]is [facility], Phone: [phone] [facility] FANY [id number] 16:03:02 Name: Aretha : 1955 Sex: F - SCR MAMM BILATERAL BRITTANY CAD DIGITALBILATERAL DIGITAL SCREENING MAMMOGRAM 3D/2D WITH CAD: 05/02/2021LINICAL: Asymptomatic. Digital breast tomosynthesis was performed in addition to routine CC and MLO views. Current mammographic images were evaluated by [facility] ImageChecker CAD (computer-aided detection) software. Comparison is made to exam dated 05/12/2019 mammogram - [facility] [place]. The tissue of both breasts is predominantly fatty. No suspicious mass, architectural distortion, malignant type calcification, or lymph node abnormality detected. Breast architecture is stable compared to prior exams.IMPRESSION: NEGATIVEThere is no mammographic evidence of malignancy. Resume annual screening mammography in one year. Hernan Orozco M.D.ss/penrad:05/06/2021 16:03:02 Public Safety Officer: Corazon THOMPSON, [facility]-FWletter sent: BIRADS 1- 2 Normal Mammogram BI-RADS: 1 NegativeThyroid stimulating [id number] 21:37:00 Test Item Value Reference Range Interpretation Comments TSH (test See_Comment [Automated mes pia] code = The system ic h 3016-3) generated this result transmit jc reference range : 0.40 - 4.50 mIU /L. The reference r jacinda was not used to interpret this result as normal/abnormal . RAC (test Performing code = RAC) Organization Information: Site ID: RGA Name[facility] Address: [address] [place] [address] Director: Flavio Malin [facility] with platelet and [id number] 21:37:00 Test Item Value Reference Range Interpretation Comments WBC (test code = See_Comment [Automated 6690-2) message] The system which generated this result transmitted reference range : 3.8 - 10.8 Thousand/uL. Th e reference range was not used to interpret this result as normal/abnormal . RBC (test code = See_Comment [Automated 789-8) message] The system which generated this result transmitted reference range : 3.80 - 5.10 Million/uL. The reference range was not used to interpret this result as normal/abnormal . HGB (test code = 12.6 g/dL 11.7-15.5 718-7) HCT (test code = 37.7 % 35-45 4544-3) MCV (test code = 88.1 fL 80-100 787-2) MCH (test code = 29.4 pg 27-33 785-6) MCHC (test code = 33.4 g/dL 32-36 786-4) RDW (test code = 13.6 % 11-15 788-0) Platelet count See_Comment [Automated (test code = message] The 777-3) system which generated this result transmitted reference range : 140 - 400 Thousand/uL. Th e reference range was not used to interpret this result as normal/abnormal . MPV (test code = 10.7 fL 7.5-12.5 776-5) Neutrophils, See_Comment [Automated absolute (test message] The code = 751-8) system which generated this result transmitted reference range : 1,500 - 7,800 cells/uL. The reference range was not used to interpret this result as normal/abnormal . Lymphocytes, See_Comment [Automated absolute (test message] The code = 731-0) system which generated this result transmitted reference range : 850 - 3,900 cells/uL. The reference range was not used to interpret this result as normal/abnormal . Monocytes, See_Comment [Automated absolute (test message] The code = 742-7) system which generated this result transmitted reference range : 200 - 950 cells/uL. The reference range was not used to interpret this result as normal/abnormal . Eosinophils, See_Comment [Automated absolute (test message] The code = 711-2) system which generated this result transmitted reference range : 15 - 500 cells/uL. The reference range was not used to interpret this result as normal/abnormal . Basophils, See_Comment [Automated absolute (test message] The code = 704-7) system which generated this result transmitted reference range : 0 - 200 cells/u L. The reference range was not used to interpr et this result as normal/abnormal . Neutrophils (test 71 % code = 770-8) Lymphocytes (test 19.5 % code = 736-9) Monocytes (test 6.4 % code = 5905-5) Eosinophils (test 2.5 % code = 713-8) Basophils + RC 0.6 % (test code = 706-2) RAC (test code = Performing RAC) Organization Information: Site ID: ITZEL Name[facility] Address: [address] [place] [address] Director: [facility] HospitalVitamin D 25 hydroxy [id number] 21:37:00 Test Item Value Reference Range Interpretation Comments Vitamin D, 49 ng/mL 30-100 Vitamin D Statu s 25-hydroxy (test 25-OH Vitam in D: code = 1988-07) Deficiency: < 20 ng/mLInsufficie ncy : 20 - 29 ng/mLOptimal: > or = 30 ng/mL F or 25-OH Vitamin D testing on patients on D2-supplementat ion and patients fo r whom quantitati on of D2 and D3 fractions is required, the QuestAssureD(TM )25 -OH VIT D, (D2,D3), LC/MS/ MS is recommended: order code 9288 8 (patients >2yrs).See Note 1 Note 1 For additional information, please refer to http://educatio n.Q uestDiagnostics .co m/faq/UYD651 (T his link is being provided for informational/e aurora ational purpose s only.) RAC (test code = Performing RAC) Organization Information: Site ID: ITZEL Name[facility] Address: [address] [place] [address] Director: [facility] HospitalMicroalbumin / creatinine urine [id number] 21:37:00 Test Item Value Reference Interpretation Comments Range Creatinine, urine 14 mg/dL 20-275 L (mg/dL) (test code = 2161-8) Microalbumin, urine 0.2 mg/dL See Note: Referenc e Range: (test code = Reference Range Not 10731-2) established Microalbumin/creati See_Comment The ADA defines nine ratio (test abnormaliti es in code = 9318-7) albuminexcret ion as follows: Albumi armaan Category Result (mcg/mg creatin ine) Normal to Mildl y increased <30Moderately increased 30-29 9 Severely increa sed > OR = 300 The AD A recommends that at least two of threespecimens collected withi n a 3-6 month perio d beabnormal befo re considering a patient to bewi thin a diagnostic category. [Auto mated message] The sy stem which generated this result transmit jc reference range : <30 mcg/mg creat. T he reference range was not used to interpret this result as normal/abnormal . RAC (test code = Performing RAC) Organization Information: Site ID: A Name: [facility] Address: [address] [place] [address] Director: Flavio Yo Lab Interpretation Abnormal (test code = 61076-4) [facility] [id number] 21:37:00 Test Item Value Reference Range Interpretation Comments Hepatitis C Ab NON-REACTIVE NON-REACTIVE (test code = 99852-7) Signal/cutoff See_Comment HCV antibody was (test code = non-reactive. 05169-9) There is no laboratory evidence of HCV infection. In m ost cases, no furth er action is required. However,if rece nt HCV exposure is suspected, a te st for HCV RNA(meagan t code 62856) is suggested. For additional information ple ase refer tohttp://educat ion .Cardpool. FlexEnergy/faq/YLS68w2 (Th is link is gustavo g provided for informational/e aurora ational purpose s only.) [Automat ed message] The system which generated this result transmit jc reference range : <=1.00. The reference range was not used to interpret this result as normal/abnormal . RAC (test code = Performing RAC) Organization Information: Site ID: A Name: [facility] Address: [address] [place] [address] Director: Flavio Yo [facility] ([facility]OVID-19) RNA [Presence] in Respiratory specimen by HARVINDER with probe [id number] 02:03:28 Test Item Value Reference Range Interpretation Comments SARS-CoV-2 (COVID-19) RNA Not detected Not-Detected [Presence] in Respiratory specimen by HARVINDER with probe detection (test code = 30717-7) SURGICAL [id number] 07:38:00 RUN DATE: 11/25/18 [facility] *LIVE* PAGE 1 RUN TIME: 737 Specimen Inquiry RUN USER: INTERFACE --------- ---PATIENT: [facility]TH[facility]ONTES [facility] [id number] AGE/SX: 63/F ROOM: [facility] RE11/11/18[facility] DR: Criss Spring MD : 51 BED: 1 DIS: 11/15/18 STATUS: DIS IN TLOC: SPEC #: [id number] RECD: 11/11/18 STATUS: SUKHDEEP RIVERA #: [id number] PATRICIA: 11/11/[address]: Criss Spring MD ENTERED: 11/24/18 SP TYPE: SURG SPEC OTHR DR: Self Referred Tobi Joyce MD, Altaf MD Makhoul, Claudia MD Voloyiannis, Theodoros MDORDERED: GM LEVEL 4 CODES: N98887 - STOMACH, NOS COPIES TO: Self Referred Tobi Joyce MD [address] [place], [place] [id number] Jesus Fernán[place] [address] [place], [place] [id number] [email or web address] [place] [address] [place] [address] Criss Spring MD [address] [place] [address] Le Kramer MD [address] [place], [place] [id number] [email or web address] PROCEDURES: GM LEVEL 4 (Incomplete) TISSUES: 1. STOMACH, NOS - Stomach, bx. CONTINUED ON NEXT PAGE RUN DATE: 11/25/18 [facility] *LIVE* PAGE 2 RUN TIME: 737 Specimen Inquiry RUN USER: INTERFACE SPEC #: [id number] PATIENT: FEARETHA CAT #[id number] (Continued) FINAL DIAGNOSIS Stomach, antrum, biopsy: Mild chronic gastritis, nonactive; no Helicobacter pylori organisms identified. GROSS AND MICROSCOPIC GROSS EXAMINATION: Received is/are the specimen/s designated with the appropriate dimensions and block designation: 1. Stomach, bx.: 2 segments of pink-jacobs tissue, measuring up to 0.5 cm.in greatest dimension each. MICROSCOPIC EXAMINATION: The gastric [...] controls have been reviewed and are appropriately positi ve/negative). POST-OP DIAGNOSIS Gastritis, hiatal hernia PRE-OP DIAGNOSIS Intractable vomiting ------ ------ Signed SIGNATURE ON FILE Sandra Kruger MD 11/25/18 0738 END OF REPORT - [facility] IM[facility] INCL GB W GUILHERME 2018-11-14 10:20:00 FAX: Michel Barrios [phone] [place]: St: [facility] FAX: Alecia Cordova MD [phone] FAX: Criss Spring MD [phone] Name: ARETHA MIRAMONTES [facility] : 1955 Age/S: 63/F [address] [place], [place] [address]Unit #: [id number] Loc: [place] [address] Phys: Michel Barrios Acct: [id number] Dis Date: Status: ADM IN PHONE #: [phone] Exam Date: 11/14/2018 1002 FAX #: [phone] Reason: abd pain and N/V EXAMS: CPT CODE: [id number] HEPA IMAG INCL GB W PHA 89934 Nuclear medicine hepatobiliary scan HISTORY: Nausea and vomiting after eating. PROCEDURE: After the intravenous injection of 5 mCi of technetium 99m Choletec, anterior projection imaging was performed for 100 minutes. Then, 8 ounces of Ensure was ingested orally and additional imaging of the abdomen was performed for 30 minutes. FINDINGS: There is normal hepatic uptake of the radiotracer and excretion into the biliary system. The gallbladder is visualized at 45 minutes. The small bowel is visualized at 100 minutes. After the ingestion of a fatty meal, the maximum gallbladder ejection fraction measures 58% at 30 minutes which is normal. IMPRESSION: 1. Patent cystic duct and common duct. No evidence for acute cholecystitis. 2. Normal gallbladder ejection fraction. SL: [id number] at 1020 Reported and signed by: Orlando Lorenzo M.D. CC: Michel Barrios; Alecia Cordova MD; Criss Spring MD Technologist: Alis Rivera, RT(N) ASSISTANT STATISTICIAN; ... Trnscrd Date/Time/By: 11/14/2018 (1020) : By: [email or web address] Orig Print D/T: S: 11/14/2018 (4099) PAGE 1 Signed Report- XR CHEST 2 [id number] 10:11:00 FAX: Michel Barrios [phone] [place]: St: [facility] FAX: Alecia Cordova MD [phone] FAX: Criss Spring MD [phone] Name: ARETHA MIRAMONTES [facility] : 1955 Age/S: 63/F [address] [place] [address] Unit #: [id number] Loc: [address] [address] Phys: Michel Barrios Acct: [id number] Dis Date: Status: ADM IN PHONE #: [phone] Exam Date: 11/11/2018 0743 FAX #: [phone] Reason: PRE OP PROTOCOL EXAMS: CPT CODE: [id number] XR CHEST 2 V 72550 2 view chest x-ray performed November 11, 2018 0732 hours. COMPARISON: August 04, 2012. CLINICAL HISTORY: PRE OP PROTOCOL. Intractable vomiting DISCUSSION:2 views/ films of the chest are submitted. Lungs are clear bilaterally. Surgical clips are seen in the left lower neck region. Cardiomediastinal silhouette is normal. Osseous structures are within normal limits. IMPRESSION: Normal Chest X-ray. at 1011 Reported and signed by: Clara Cedeño M.D. CC: Michel Barrios; Alecia Cordova MD; Criss Spring MD Technologist: RT Cristopher(R) Trnscrd Date/Time/By: 11/11/2018 (1011) : By: [email or web address] Print D/T: S: 11/11/2018 (1014) PAGE 1 Signed Report- US ABDOMEN [id number] 08:33:00 Name: ARETHA MIRAMONTES [facility] [place] : 1955 Age/S: 63 / F [address] [place] [address] Unit #: [id number] Loc: [place] [address] Phys: Michel Barrios Acct: [id number] Dis Date: Status: ADMIN PHONE #: [phone] Exam Date: 11/11/2018808 FAX #: [phone] Reason: n/v/abd pain EXAMS: CPT CODE: [id number] US ABDOMEN LTD 84398 PROCEDURE: RIGHT UPPER QUADRANT ULTRASOUND INDICATION: Nausea, [...] dilatation. 2. Fatty infiltration of liver. SL: [id number] at 0833 Reported and signed by: Orlando Lorenzo M.D. CC: Michel Barrios; Alecia Cordova MD; Criss Spring MD Technologist: Claudia Nuñez RDMS(Isabella)(SANTO) Trnscb Date/Time: 11/11/2018 (0833) [email or web address] Orig Print D/T: S: 11/11/2018 (0836) Probe: PAGE 1 Signed ReportPROTHROMBIN [id number] 03:51:00 Test Item Value Reference Range Interpretation Comments PROTHROMBIN TIME 13.5 SECONDS 9.3-12.9 H PATIENT (test code = PTP) INTERNATIONAL NORMAL 1.2 0.8-1.2 N TARGET INR BY RATIO (test code = INDICATIO N Indication INR) INR1. Prophylax is of venous thrombos is 2.0 - 3.0 (orthoped ic surgery), Proph ylaxis of venous throm bosis (other than hig h-risk surgery), Treat ment of Deep Vein Thrombosis/Pulm onary Embolism, Preve ntion of systemic emb olism - Tissue heart va lves, Acute Myocardia l Infarction (to prevent systemic emboli sm), Valvular heart disease, Atrial Fibrillation, Bileaflet mecha nical valve in aortic position.2. Mec hanical prosthetic valv es (high risk), 2. 5 - 3.5 Presence of Lup us Anticoagulant o r Antiphospholipi d Antibodies, Pre vention of systemic emb olism - Acute Myocardia l Infarction (to prevent recurrent infar ct). THROMBOPLASTIN TIME [id number] 03:51:00 Test Item Value Reference Range Interpretation Comments THROMBOPLASTIN TIME 32.3 Seconds 25.0-39.5 N Therape utic Range: PARTIAL (test code = 50.4 - 88.3 Seconds PTT) Effective 08/30/2018 - NM GASTRIC [id number] 15:11:00 FAX: Alecia Cordova MD [phone] [place]: St: [facility] FAX: Criss Spring MD [phone] ----- Name: ARETHA MIRAMONTES [facility] : 1955 Age/S: 63/F [address] [place] [address] Unit #: [id number] Loc: [place] [address] Phys: Criss Spring MD Acct: [id number] Dis Date: Status: ADM IN PHONE #: Exam Date: 11/10/2018 1504 FAX #: [phone] Reason: nausea /vomiting, r/o gastroparesis EXAMS: CPT CODE: [id number] NM GASTRIC EMPTYING 12507 NUCLEAR MEDICINE GASTRIC EMPTYING STUDY. 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 Hip surgery 4 days ago.COMPARISON EXAM(S): Previous similar study of December 2014 TECHNIQUE: Axial images were obtained of the abdomen and pelvis from the domes of the diaphragm to the symphysis pubis without contrast material. Coronal and sagittal reconstructions were generated. DOSE: CT imaging performed at this location ut ilizes radiation dose optimization technique which includes one or more of the followin) Automated exposure control; 2) Adjustment of the mA and/or kV according to patient's size; 3) Use of iterative reconstruction techniques. DLP (mGy-cm): 570 FINDINGS: The lung bases and pleural spaces are clear. The stomach is not distended. Oral contrast material reached normal-appearing loops of small bowel.Contrast material reached the ascending colon at the time of imaging. The gallbladder is of normal size. Complex anterior abdominal wall hernia is identified with a wide neck measuring 6.5 cm and hernia sac measuring 13 cm. This contains a segment of the transverse colon. The colon does not appear rafa incarcerated or obstructed. No evidence of fluid or edema within the hernia sac. The appendix is well seen and normal. No inflammatory changes identified in either lower quadrant. Inferior pelvis isobscured by the streak artifact from the hip prostheses. The solid organs are not well evaluated with out IV contrast. No dominant focal lesions noted [...] 1 Signed Report (CONTINUED) Name: ARETHA MIRAMONTES [facility] : 05/1954 Age/S: 63 / F [address] [place] [address] Unit #: [id number] Loc: [place] [address] Phys: Emory Aldana DO Acct: [id number] Dis Date: Status: REG ER PHONE #: [phone] Exam Date: 11/09/2018 1815 FAX #: [phone] Reason: abdominal pain nauesea vomitting EXAMS: CPT CODE: [id number] CT ABD PELVIS W/O CONT 99410 (Continued) IMPRESSION: 1. No acute changes identified. 2. Complex, large, anterior abdominal wall umbilical hernia containing a nonobstructed segment of the transverse colon. There is no evidence of incarceration [...] 11/09/2018 (1847) PAGE 2 Signed ReportCOMPREHENSIVE METABOLIC [id number] 17:52:00 Test Item Value Reference Range Interpretation [...] 20-125 N TOTAL (test code = ALKP) [id number] 17:52:00 Test Item Value Reference Range Interpretation Comments LIPASE (test code = LIP) 69 IUnit/L 73-393 L [id number] 17:52:00 Test Item Value Reference Range Interpretation Comments TROPONIN-I < 0.015 ng/mL 0.000-0.045 N Negative: <= 0 .045 Positive: (test code = >= 0.046 Correl ation with TROPI) serial results, other cardiac markers andclinical findings is nec essary to determine the clinicalsignifi cance of this result. Results using different metho dologies should not be c omparedto one another as elie titative results may satya y by method. URINALYSIS [id number] 17:43:00 Test Item Value Reference Range Interpretation [...] /LPF NONE SEEN COMMENTS: Clean CatchCBC W/AUTO [id number] 17:35:00 Test Item Value Reference Range Interpretation [...]
[2022-01-11] MEDS ORDERED: DIAZEPAM 5 MG TABLET ONE ×2 (16:19→17:17)
--- NOTE | 2022-01-11 17:15 | EDPHYS ---
Physician Documentation [facility] Name: Aretha Cardenas Age: 66 yrs Sex: Female : 1955 Arrival Date: 01/11/2022 Time: 14:49 Bed 15 Private MD: ED Physician Venu Gonzalez HPI: 01/11 17:03 This 66 yrs old Female presents to ER via Wheelchair with complaints of Anxiety. rn 17:03 The patient presents to the emergency department with anxiety. Onset: The rn symptoms/episode began/occurred 1 week(s) ago. Associated signs and symptoms: Pertinent positives; anxiety, Pertinent negatives: chest pain, fever, hallucinations, homicidal ideation, shortness of breath, substance abuse, suicide ideation. Severity of symptoms: At their worst the symptoms were moderate in the emergency department the symptoms have improved. The patient has experienced similar episodes in the past. The patient has not recently seen a physician. Pt reports feeling anxious, happening over last week, discharged last week after back surgery. No complications from surgery, but since getting home patient has felt anxious, depressed, and is having trouble getting used to being back at home alone after a 3 week long admission. Already on anti-depressants, plans on f/u with psychiatry tomorrow. . Historical: - Allergies: 15:06 Iodine; hb - PMHx: 15:06 Hypercholesterolemia; Hypertensive disorder; hb - PSHx: 15:06 bilateral hip replacement; colon resection; hb - Immunization history:: Adult Immunizations up to date. - Social history:: Smoking status: Patient reports the use of cigarette tobacco products, smokes one-half pack cigarettes per day. - Family history:: not pertinent. - Hospitalizations: : Patient was recently seen at. ROS: 17:03 Constitutional: Negative for fever, chills, and weight loss, Eyes: Negative for injury, rn pain, redness, and discharge, Cardiovascular: Negative for chest pain, palpitations, and edema, Respiratory: Negative for shortness of breath, cough, wheezing, and pleuritic chest pain, Abdomen/GI: Negative for abdominal pain, nausea, vomiting, diarrhea, and constipation, Back: Negative for injury and pain, MS/Extremity: Negative for injury and deformity, Skin: Negative for injury, rash, and discoloration, Neuro: Negative for headache, weakness, numbness, tingling, and seizure. Exam: 17:03 Constitutional: This is a well developed, well nourished patient who is awake, alert, rn tearful and crying Head/Face: Normocephalic, atraumatic. Eyes: Periorbital areas with no swelling, redness, or edema. Cardiovascular: Regular rate and rhythm. No pulse deficits. Respiratory: No increased work of breathing, no retractions or nasal flaring. Abdomen/GI: Soft, non-tender Skin: Warm, dry MS/ Extremity: Pulses equal, no cyanosis. Neuro: Awake and alert, GCS 15, oriented to person, place, time, and situation. Cranial nerves II-XII grossly intact. Motor strength 5/5 in all extremities. Sensory grossly intact. Vital Signs: 15:03 BP 128 / 60; Pulse 81; Resp 16; Temp 98.1; Pulse Ox 100% ; Weight 70.76 kg; Height 5 hb ft. 6 in. (167.64 cm); Pain 6/10; 16:00 BP 183 / 90; Pulse 70; Resp 18; Pulse Ox 98% on R/A; bm7 16:58 BP 147 / 56; Pulse 72; Resp 16; Pulse Ox 98% on R/A; Pain 2/10; bm7 15:03 Body Mass Index 25.18 (70.76 kg, 167.64 cm) hb MDM: 15:05 Patient medically screened. rn 17:03 Differential diagnosis: anxiety, hyperventilation, panic attack. Data reviewed: vital rn signs, nurses notes, and as a result, I will discharge patient. Counseling: I had a detailed discussion with the patient and/or guardian regarding: the historical points, exam findings, and any diagnostic results supporting the discharge/admit diagnosis, the need for outpatient follow up, to return to the emergency department if symptoms worsen or persist or if there are any questions or concerns that arise at home. Response to treatment: the patient's symptoms have markedly improved after treatment, and as a result, I will discharge patient. Special discussion: I discussed with the patient/guardian in detail that at this point there is no indication for admission to the hospital. It is understood, however, that if the symptoms persist or worsen the patient needs to return immediately for re-evaluation. Based on the history and exam findings, there is no indication for further emergent testing or inpatient evaluation. I discussed with the patient/guardian the need to see the psychiatrist for further evaluation of the symptoms. ED course: Pt no longer crying, smiling, states feels much better, back to baseline, very thankful. . Administered Medications: 16:12 Drug: Valium (diazepam) 5 mg Route: PO; bm7 16:58 Follow up: Response: Anxiety decreased bm7 17:14 Drug: Valium (diazepam) 5 mg Route: PO; bm7 17:23 Follow up: Response: No adverse reaction bm7 Disposition Summary: 01/11/22 17:14 Discharge Ordered Location: Home rn Problem: new rn Symptoms: have improved rn Condition: Stable rn Diagnosis - Anxiety disorder, unspecified rn - Hyperventilation rn Followup: rn - With: Private Physician - When: As needed - Reason: Recheck today's complaints, Re-evaluation by your physician Discharge Instructions: - Discharge Summary Sheet rn - Panic Attack rn - Hyperventilation rn - Managing Anxiety, Adult rn Forms: - Medication Reconciliation Form rn - Thank You Letter rn - 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
--- NOTE | 2022-01-11 17:15 | ER ---
Nurse's Notes [facility] Name: Aretha Cardenas Age: 66 yrs Sex: Female : 1955 Arrival Date: 01/11/2022 Time: 14:49 Bed 15 Private MD: Diagnosis: Anxiety disorder, unspecified;Hyperventilation Presentation: 01/11 15:03 Chief complaint: Anxiety attack last night and again this morning. Reports she had back hb surgery 12/18, discharged from [facility] on 01/05. Coronavirus screen: At this time, the client does not indicate any symptoms associated with coronavirus-19. Ebola Screen: No symptoms or risks identified at this time. Onset of symptoms was January 10, 2022. 15:03 Method Of Arrival: Wheelchair hb 15:03 Acuity: ANGLE 3 hb Historical: - Allergies: 15:06 Iodine; hb - PMHx: 15:06 Hypercholesterolemia; Hypertensive disorder; hb - PSHx: 15:06 bilateral hip replacement; colon resection; hb - Immunization history:: Adult Immunizations up to date. - Social history:: Smoking status: Patient reports the use of cigarette tobacco products, smokes one-half pack cigarettes per day. - Family history:: not pertinent. - Hospitalizations: : Patient was recently seen at. Screenin:56 Abuse screen: Denies threats or abuse. Nutritional screening: No deficits noted. bm7 Tuberculosis screening: No symptoms or risk factors identified. Fall Risk None identified. Assessment: 15:56 Reassessment: No changes from previously documented assessment. Patient is alert, bm7 oriented x 3, equal unlabored respirations, skin warm/dry/pink. ERP at bedside to assess. 16:13 General: Appears distressed, uncomfortable, Behavior is crying, restless. Pain: bm7 Complains of pain in back. Neuro: No deficits noted. Cardiovascular: No deficits noted. Respiratory: No deficits noted. GI: No deficits noted. No signs and/or symptoms were reported involving the gastrointestinal system. : No deficits noted. No signs and/or symptoms were reported regarding the genitourinary system. EENT: No deficits noted. No signs and/or symptoms were reported regarding the EENT system. Derm: No deficits noted. No signs and/or symptoms reported regarding the dermatologic system. Musculoskeletal: Reports pain in back Denies numbness in, back. 16:51 Reassessment: Patient and/or family updated on plan of care and expected duration. Pain bm7 level reassessed. Patient is alert, oriented x 3, equal unlabored respirations, skin warm/dry/pink. 16:59 Reassessment: ERP at bedside to reassess. bm7 Vital Signs: 15:03 BP 128 / 60; Pulse 81; Resp 16; Temp 98.1; Pulse Ox 100% ; Weight 70.76 kg; Height 5 hb ft. 6 in. (167.64 cm); Pain 6/10; 16:00 BP 183 / 90; Pulse 70; Resp 18; Pulse Ox 98% on R/A; bm7 16:58 BP 147 / 56; Pulse 72; Resp 16; Pulse Ox 98% on R/A; Pain 2/10; bm7 15:03 Body Mass Index 25.18 (70.76 kg, 167.64 cm) hb ED Course: 14:49 Patient arrived in ED. rg4 15:03 Arm band placed on. hb 15:05 Venu Gonzalez MD is Attending Physician. rn 15:06 Triage completed. hb 15:56 Halley Nguyễn, BETTE is Primary Nurse. bm7 15:56 Patient has correct armband on for positive identification. Placed in gown. Bed in low bm7 position. Call light in reach. Side rails up X 1. Adult w/ patient. Client placed on continuous cardiac and pulse oximetry monitoring. NIBP monitoring applied. Warm blanket given. 15:56 No provider procedures requiring assistance completed. bm7 16:13 Appears tearful. Awaiting lab results. bm7 17:23 Patient did not have IV access during this emergency room visit. bm7 Administered Medications: 16:12 Drug: Valium (diazepam) 5 mg Route: PO; bm7 16:58 Follow up: Response: Anxiety decreased bm7 17:14 Drug: Valium (diazepam) 5 mg Route: PO; bm7 17:23 Follow up: Response: No adverse reaction bm7 Medication: 15:56 VIS not applicable for this client. bm7 Outcome: 17:14 Discharge ordered by . rn 17:23 Discharged to home ambulatory. bm7 17:23 Condition: improved 17:23 Discharge instructions given to patient, family, Instructed on discharge instructions, follow up and referral plans. Demonstrated understanding of instructions, follow-up care. 17:24 Patient left the ED. bm7 Signatures: Venu Gonzalez MD MD rn Baxter, Heather, RN RN hb Garcia, Rubi [facility] Halley Nguyễn RN RN bm7
[2022-01-11 18:27] VITALS: TEMP 98.1
[2022-01-11 18:29] VITALS: O2SAT 98
[2022-01-11 18:32] VITALS: BP 147/56
== END 2022-01-11 17:24 | disposition home or self-care (01) ==
LOC: ER 14:47
DX: F41.9 Anxiety disorder, unspecified (principal); R06.4 Hyperventilation; I10 Essential (primary) hypertension; F17.210 Nicotine dependence, cigarettes, uncomplicated; Z91.048 Other nonmedicinal substance allergy status
CPT/HCPCS: 99283